=== PATIENT | male | born 1960 | race Caucasian/White ===

== ENCOUNTER → 2018-02-09 | Outpatient (CLI) | payer OTHER ==
[~2018-02-09] VITALS: Ht 177.8 cm; Wt 104.8 kg
[~2018-02-09] MED LIST: AMLODIPINE BESY10 MG PO; ASPIR 8181 M1 PO; AVAPRO300 MG PO; CRESTOR10 MG PO; MAXZIDE-25 MG1 EACH PO; PERCOCET 10-321 EACH PO; PERCOCET 7.5-31 EACH PO; PLAVIX 75 MG TA75 M1 PO; TOPROL XL100 MG PO; TOPROL XL25 MG PO; TRICOR145 MG PO; ZYRTEC10 MG PO
--- NOTE | ~2018-02-09 | HPC ---
[facility] [place] [address] PAIN MANAGEMENT CONSULTATION Name: ALEJANDRA CHAPMAN Room #: REG CL M..#: [id number] Admission: 02/09/18 Attend Phys: Lucas Chapman DO Discharge: Date of : 56 Report #: [id number] THIS REPORT FOR: //name// CC: FAM physician/PCP Lucas Valente DO DATE OF SERVICE: 02/09/2018 REFERRING PHYSICIAN: Rafat Valente DO. CHIEF COMPLAINT: Bilateral shoulder pain, right greater than left. HISTORY OF PRESENT ILLNESS: As you know, the patient is a 57-year-old male seen in followup visit for right shoulder pain. The patient has been seeing Dr. Marcus Erickson at our clinics at [facility]. The patient made appointments here at our clinic to undergo right shoulder injection. He is wishing to change his care to our clinic here at [facility] for more consistency of treatment. The patient indicates today pain level of around 4/10. States pain begins in the right shoulder, exacerbated with use of the right shoulder. Medications, lying down, reclining or repositioning tends to improve pain. He has changed his care to the [facility] office for continued opioid medications and periodic interventional treatments. ALLERGIES: PENICILLIN. CURRENT MEDICATIONS: Zyrtec 10 mg once a day, metoprolol 100 mg once a day, triamterene/hydrochlorothiazide 37.5/25 once a day, oxycodone 10/325 every 6 hours p.r.n. for pain, fenofibrate 145 mg per day, Crestor 10 mg per day, irbesartan 300 mg per day, aspirin 81 mg per day, amlodipine 10 mg per day. SOCIAL HISTORY: The patient continues to smoke. He denies IV or illicit drug use. Denies any chronic alcohol use. He is retired. He is unaccompanied today. IMAGING: No new imaging available. PQRS: The patient has osteoarthritis, no rheumatoid arthritis. He is not a fall risk, has not had a fall in the last 3 months. He is treated for hypertension, but he is not on blood thinners. He indicates pain score today 4/10. His opioid risk is low. His functional assessment tool pain impact score is 44/70. PHYSICAL EXAMINATION: VITAL SIGNS: Blood pressure 135/82, pulse 76, respiratory rate 16 and unlabored. The patient 99% on room air. Height 5 feet 10 inches tall, weight [facility] [address] [place] [address] PAIN MANAGEMENT CONSULTATION Name: ALEJANDRA CHAPMAN Room #: REG CLI [facility].#: [id number] Admission: 02/09/18 Attend Phys: Lucas Chapman DO Discharge: Date of : 56 Report #: [id number] 231 pounds, BMI calculated 33.1. GENERAL: Well-developed, well-nourished, well-hydrated, 57-year-old male. He appears stated age, placing current pain score 4/10. HEENT: Normocephalic, atraumatic. Pupils equal, round, reactive to light. Extraocular muscles are intact. EXTREMITIES: Show no clubbing, no cyanosis, no edema. MUSCULOSKELETAL: The patient has pain elicited with both active and passive range of motion of the right shoulder and left shoulder. There are well-healed surgical scars over both shoulders. Deep palpation of the right shoulder causes intensification of pain. There is no radicular component of the patient's symptoms. ASSESSMENT: 1. Right shoulder pain. 2. Rotator cuff injury of the right. 3. Chronic low back pain. 4. Opioid dependency. PLAN: 1. The patient has changed his care to our [facility] office from our [facility] office. The patient wished to continue therapy with myself. He felt comfortable with receiving medications and interventional treatments. He has subsequently contacted the pain clinic at [facility] and they have sent over all available information. The patient today indicates pain mainly in the right shoulder, though he continues to experience left shoulder pain he wants to address in the future. His spinal cord stimulator appears to be working well for his chronic low back pain. He has requested intraarticular right shoulder injection today. The patient was advised risks and benefits of a right intra-articular shoulder injection. These risks include, but are not necessarily limited to bleeding, bruising, infection, worsening pain, no relief of pain, also risk of temporary or permanent muscle weakness, temporary or permanent nerve damage, possible joint destruction and . The patient states understood and wished to proceed. 2. The patient will be making an appointment back in the clinic in 3 weeks to address left shoulder pain, also to discuss medication management. We have made that appointment with the patient today. 3. We will keep you apprised of response to treatment as we address his bilateral shoulder pain and chronic low back pain. We urged to thank Dr. Douglass for the referral to our clinic. PROCEDURE NOTE [facility] [address] [place] [address] PAIN MANAGEMENT CONSULTATION Name: ALEJANDRA CHAPMAN Room #: REG CLI [facility]#: [id number] Admission: 02/09/18 Attend Phys: Lucas Chapamn DO Discharge: Date of : 56 Report #: [id number] DESCRIPTION OF PROCEDURE: Right intra-articular shoulder injection under fluoroscopic guidance. After obtaining written consent, the patient was taken back to fluoroscopy suite, placed in a supine position. The image intensifier was then brought into position over the right shoulder and AP imaging was obtained. The area was then prepped and draped in aseptic fashion. A sterile marker was placed over the injection site. A 27-gauge 1-1/4 inch needle was used to anesthetize skin and subcutaneous tissue with 2 mL of 1% lidocaine. A 27-gauge 1-1/4-inch needle was then used to advance into the right shoulder under direct fluoroscopic imaging. Once entering the joint, the needle was advanced until reaching the proximal head of the humerus. Once reaching this osseous structure, the needle was retracted 1 mm and aspiration noted to be negative for heme. After this aspiration noted for negative heme, 0.3 mL of Omnipaque was injected. This demonstrated an excellent right shoulder arthrogram. After negative aspiration for heme, 3 mL of a solution containing 1 mL 40 mg per mL, 40 mg total triamcinolone, 2 mL bupivacaine 0.5% injected slowly. Needle retracted mcc, flushed with 1 mL of 1% lidocaine and removed. Sterile bandage placed over injection site. The patient tolerated the procedure well, carefully escorted to recovery room in stable condition. After meeting our discharge criteria, the patient discharged home. <ELECTRONICALLY SIGNED> By: Lucas Chapman DO 02/10/18 0804 [id number] Lucas Chapman DO /nt
[2018-02-09 12:35] VITALS: BP 135/82
== END | disposition home or self-care (01) ==
LOC: PAIN 06:39
DX: M25.511 Pain in right shoulder (principal); G89.29 Other chronic pain; F17.210 Nicotine dependence, cigarettes, uncomplicated; Z88.0 Allergy status to penicillin; Z79.899 Other long term (current) drug therapy; Z79.82 Long term (current) use of aspirin; Z79.891 Long term (current) use of opiate analgesic; Z98.890 Other specified postprocedural states

== ENCOUNTER → 2018-02-23 | Outpatient (CLI) | payer OTHER ==
[~2018-02-23] VITALS: Ht 177.8 cm; Wt 105.0 kg
--- NOTE | ~2018-02-23 | HPC ---
[facility] [place] [address] PAIN MANAGEMENT CONSULTATION Name: ALEJANDRA CHAPMAN Room #: REG CLI M.R.#: [id number] Admission: 02/23/18 Attend Phys: Lucas Chapman DO Discharge: Date of : 56 Report #: [id number] THIS REPORT FOR: //name// CC: [facility] physician/PCP Lucas Valente DO DATE OF SERVICE: 02/23/2018 CHIEF COMPLAINT: Bilateral shoulder pain, right greater than left. HISTORY OF PRESENT ILLNESS: As you know, the patient is a 58-year-old male who returns today in followup visit to address his left shoulder pain. The patient reports excellent benefit with the right intra-articular shoulder injection from last visit. He is reporting upwards of 80% improvement in overall pain involving the right shoulder. The left shoulder remains at level of pain of 7/10. He returns today to undergo left intra-articular shoulder injection, also to receive refills of his oxycodone 10/325, he takes 4 a day. He denies any injury, trauma to his shoulders or low back that may have led to continuation of pain issues. ALLERGIES: PENICILLIN. CURRENT MEDICATIONS: Zyrtec 10 mg per day, metoprolol 100 mg per day, triamterene/hydrochlorothiazide 37.5/25 once a day, Percocet 10/325 one tab every 6 hours p.r.n. for pain, fenofibrate 145 mg per day, Crestor 10 mg per day, irbesartan 300 mg once a day, aspirin 81 mg per day and amlodipine 10 mg per day. SOCIAL HISTORY: The patient continues to smoke. He denies IV or illicit drug use. Denies any chronic alcohol use. He is retired, retired years ago, unaccompanied today. IMAGING: No new imaging available. PQRS: The patient has known osteoarthritis of the bilateral shoulders, knees and back. No rheumatoid arthritis. He is not a fall risk, has not had a fall in the last 3 months. He is treated for hypertension, but is not on blood thinners. He places pain score today 7/10. He has a low risk for opioid abuse. Pain impact score is calculated to 45/70, moderate to severe interference of daily activities secondary to pain. PHYSICAL EXAMINATION: VITAL SIGNS: Blood pressure 104/64, pulse is 60, respiratory rate 20 and unlabored. The patient is 98% on room air. Height 5 feet 10 inches tall, weight 231.4 pounds, BMI calculated 33.2. [address] [address] PAIN MANAGEMENT CONSULTATION Name: ALEJANDRA CHAPMAN Room #: REG CLI [facility]#: [id number] Admission: 02/23/18 Attend Phys: Lucas Chapman DO Discharge: Date of : 56 Report #: [id number] GENERAL: Well-developed, well-nourished, well-hydrated exogenously obese 58-year-old male. He appears older than stated age, placing current pain score at 7/10. HEENT: Normocephalic, atraumatic. Pupils are equal, round, reactive to light. Extraocular muscles are intact. Sclerae nonicteric without injection. NEUROLOGIC: Cranial nerves 2-12 grossly intact. Speech fluent. The patient deemed a good historian. EXTREMITIES: Show no clubbing, no cyanosis, no edema. MUSCULOSKELETAL: The patient has pain elicited with active and passive range of motion of the left shoulder. Today, the pain is noted directly within the shoulder joint itself with radiation towards the proximal humerus. He has well-healed surgical scars over bilateral shoulders, his right shoulder is moving more freely. No pain with movement today. ASSESSMENT: 1. Bilateral shoulder osteoarthritis. 2. Bilateral rotator cuff injuries. 3. Chronic right shoulder pain. 4. Chronic left shoulder pain. 5. Opioid dependency. 6. Chronic intractable pain. PLAN: 1. The patient returns today in followup visit requesting to undergo a left intraarticular shoulder injection. He has noted excellent benefit with right shoulder injection provided 2 weeks ago. He states he is experiencing little or no pain in the right shoulder. He is placing his current pain score 7/10 involving his left shoulder. He has requested and we will perform a left intra-articular shoulder injection under fluoroscopic guidance today. He is also requesting refill of his medications in the form of Percocet 10/325 four a day, total of 120 per month. 2. The patient was consented to undergo a left shoulder injection. He was advised the risks and benefits of the procedure. These risks include but not necessarily limited to bleeding, bruising, infection, worsening pain, no relief of pain, also risk of temporary or permanent muscle weakness, temporary or permanent nerve damage, possible paralysis and . The patient states understood and wished to proceed. 3. The patient was provided prescription of Percocet 10/325 one tab p.o. q. 6 hours p.r.n. for pain. He was given #90 tablets, releases of today, 16 days from today and 32 days from today. The patient is provided the prescriptions in this fashion as this is his third green party payer restriction. He takes these medications for pain control and does note benefit with its use. 4. We will see the patient back in followup visit for refill of medications and possible intra-articular shoulder injections at our next visit. DESCRIPTION OF PROCEDURE: Left intra-articular shoulder injection under [facility] [address] [place] [address] PAIN MANAGEMENT CONSULTATION Name: ALEJANDRA CHAPMAN Room #: REG [facility]#: [id number] Admission: 02/23/18 Attend Phys: Lucas Chapman DO Discharge: Date of : 56 Report #: [id number] fluoroscopic guidance. After obtaining written consent, the patient was taken back to fluoroscopy suite, placed in supine position. Image intensifier was then brought into position over the left shoulder and AP imaging was obtained. The area was then prepped and draped in aseptic fashion. A sterile marker was then placed over the injection site. A 27-gauge 1-1/4 inch needle was then used to anesthetize skin and subcutaneous tissue with 2 mL of 1% lidocaine. A 25-gauge 2-inch needle was then advanced into the left shoulder under direct fluoroscopic imaging. The needle was advanced until reaching the proximal head of the humerus. The needle was then retracted approximately 1 mm and aspiration noted to be negative for heme. After negative aspiration for heme, 0.2 mL of Omnipaque was injected, which demonstrated an excellent left shoulder arthrogram. After negative aspiration for heme, 3 mL of a solution containing 1 mL 40 mg per mL, 40 mg total triamcinolone and 2 mL bupivacaine 0.5% injected slowly. Needle retracted assisted, flushed with 1 mL of 1% lidocaine and removed. Sterile bandage placed over injection site. The patient tolerated procedure well, carefully escorted to recovery room in stable condition. No apparent complications. After meeting discharge criteria, the patient discharged home. By: 0722 1023 Lucas Chapman DO /nt
[2018-02-23 10:10] VITALS: BP 104/64
== END | disposition home or self-care (01) ==
LOC: PAIN 07:30
DX: M19.011 Primary osteoarthritis, right shoulder (principal); M19.012 Primary osteoarthritis, left shoulder; G89.29 Other chronic pain; M25.511 Pain in right shoulder; M25.512 Pain in left shoulder; F11.20 Opioid dependence, uncomplicated; F17.210 Nicotine dependence, cigarettes, uncomplicated; Z88.0 Allergy status to penicillin; Z98.890 Other specified postprocedural states; Z79.899 Other long term (current) drug therapy; Z79.82 Long term (current) use of aspirin

== ENCOUNTER → 2018-06-22 | Outpatient (CLI) | payer OTHER ==
[~2018-06-22] VITALS: Ht 177.8 cm; Wt 110.2 kg
--- NOTE | ~2018-06-22 | HPC ---
[facility] [place] [address] PAIN MANAGEMENT CONSULTATION Name: ALEJANDRA CHAPMAN Room #: REG CLI ..#: [id number] Admission: 06/22/18 Attend Phys: Lucas Chapman DO Discharge: Date of : 56 Report #: [id number] THIS REPORT FOR: //name// CC: Lucas Valente DO DATE OF SERVICE: 06/22/2018 CHIEF COMPLAINT: Left shoulder pain. HISTORY OF PRESENT ILLNESS: As you know, the patient is a 58-year-old male who returns today in followup visit with recurrent left shoulder pain. The patient underwent bilateral shoulder injections on 02/23/2018 with near complete resolution of right shoulder pain. Unfortunately, his left shoulder pain has returned. He returns today in followup visit requesting to undergo left intra-articular shoulder injection in hopes of improving pain. He denies new injury or new trauma or any changes in medical history since our last visit. He is placing current pain score at 8/10. ALLERGIES: PENICILLIN. CURRENT MEDICATIONS: Zyrtec, metoprolol, triamterene/hydrochlorothiazide, Percocet, fenofibrate, Crestor, irbesartan, aspirin, amlodipine. SOCIAL HISTORY: The patient continues to smoke. Denies IV or illicit drug use. Denies any chronic alcohol use. He is retired, retired years ago, unaccompanied today. IMAGING: No new imaging available. PQRS: The patient has osteoarthritis, bilateral shoulders, bilateral knees and low back. No rheumatoid arthritis. He is not a fall risk, has not had a fall in the last 3 months. He is treated for hypertension, but he is not on any blood thinners. He has been on opioids for greater than 6 weeks. He has a low opioid addiction potential. His functional pain impact score 44/70, moderate to severe. PHYSICAL EXAMINATION: VITAL SIGNS: Blood pressure 114/74, pulse 58, respiratory rate 14 and unlabored. The patient is 97% on room air. Height 5 feet 10 inches tall, weight 243 pounds, BMI calculated 34.9. GENERAL: Well-developed, well-nourished, well-hydrated 58-year-old male appearing stated age, placing current pain score at 8/10. HEENT: Normocephalic, atraumatic. Pupils are equal, round, reactive to light, extraocular muscles are intact. Speech is fluent. [address] [address] PAIN MANAGEMENT CONSULTATION Name: ALEJANDRA CHAPMAN Room #: REG CLI [facility]#: [id number] Admission: 06/22/18 Attend Phys: Lucas Chapman DO Discharge: Date of : 56 Report #: [id number] EXTREMITIES: Show no clubbing, no cyanosis, no edema. MUSCULOSKELETAL: Pain is elicited with active and passive range of motion of left shoulder today. Right shoulder appears limited by anatomical stops, but no pain is elicited with movement. Upper extremity strength is symmetrical 5/5. ASSESSMENT: 1. Bilateral shoulder osteoarthritis. 2. Bilateral shoulder rotator cuff injuries. 3. Chronic left shoulder pain. 4. Opioid dependency. 5. Chronic intractable pain. PLAN: 1. The patient returns today in followup visit to undergo left intra-articular shoulder injection under fluoroscopic guidance. He has noted excellent benefit on the right side with near 100% resolution of his right shoulder symptoms from our last intra-articular shoulder injection. Unfortunately, his left shoulder has begun to return to a level of 8/10. He returns requesting a left shoulder injection. 2. The patient will make an appointment back with our clinic to receive refill on medications. At present, he has nearly a month worth of medication available to him. 3. The patient will return to our clinic on an as needed basis for possible next in a series of intra-articular shoulder injections and for refill of medications. PROCEDURE NOTE: DESCRIPTION OF PROCEDURE: Left intra-articular shoulder injection under fluoroscopic guidance. After obtaining written consent, the patient was taken back to fluoroscopy suite, placed in a supine position. The image intensifier (C-arm) was then brought into position over the left shoulder and AP imaging obtained. The area was then prepped and draped in aseptic fashion overlying the site of injection. A sterile marker was then placed over the injection site. A 27-gauge 1-1/4 inch needle was then used to anesthetize skin and subcutaneous tissue with 2 mL of 1% lidocaine. A 25-gauge 2-inch needle was then advanced into the left shoulder under direct fluoroscopic imaging. Needle was advanced until reaching the proximal head of the humerus. Needle was then retracted approximately 1 mm and aspiration noted to be negative for heme. After negative aspiration for heme, 0.2 mL of Omnipaque was injected demonstrating excellent left shoulder arthrogram. After negative aspiration for heme, 3 mL of a solution containing 1 mL 40 mg per mL, 40 mg total triamcinolone, 2 mL bupivacaine 0.5% injected slowly. Needle [facility] [address] [place] [address] PAIN MANAGEMENT CONSULTATION Name: ADELAALEJANDRA Room #: REG CLI [facility]#: [id number] Admission: 06/22/18 Attend Phys: Lucas Chapman DO Discharge: Date of : 56 Report #: [id number] retracted alf, flushed with 1 mL of 1% lidocaine and removed. Sterile bandage placed over injection site. No new motor deficits present in the upper extremity following procedure. The patient tolerated procedure well, carefully escorted to recovery room in stable condition. No apparent complications. After meeting discharge criteria, the patient discharged home. <ELECTRONICALLY SIGNED> By: Lucas Chapman DO 06/23/18 1059 [id number] 2330 Lucas Chapman DO /nt
[2018-06-22 12:29] VITALS: BP 114/74
== END | disposition home or self-care (01) ==
LOC: PAIN 06:54
DX: M19.012 Primary osteoarthritis, left shoulder (principal); M19.011 Primary osteoarthritis, right shoulder; M25.512 Pain in left shoulder; G89.29 Other chronic pain; I10 Essential (primary) hypertension; F17.210 Nicotine dependence, cigarettes, uncomplicated; F11.20 Opioid dependence, uncomplicated; Z88.0 Allergy status to penicillin; Z79.899 Other long term (current) drug therapy; Z98.890 Other specified postprocedural states

== ENCOUNTER → 2018-07-13 | Outpatient (CLI) | payer OTHER ==
[~2018-07-13] VITALS: Ht 177.8 cm; Wt 109.3 kg
--- NOTE | ~2018-07-13 | HPC ---
[facility] [place] [address] PAIN MANAGEMENT CONSULTATION Name: ALEJANDRA CHAPMAN [facility] [id number] Admission: 07/13/18 Attend Phys: Lucas Chapman DO Discharge: Date of : 56 Report #: [id number] THIS REPORT FOR: //name// CC: Lucas Valente DO DATE OF SERVICE: 07/13/2018 CHIEF COMPLAINT: Bilateral shoulder pain, chronic low back pain. HISTORY OF PRESENT ILLNESS: As you know, the patient is a 58-year-old male who returns today in followup visit for continuation of medication therapy. As you are aware, the patient receives intermittent bilateral shoulder injections to address bilateral shoulder rotator cuff injuries and osteoarthritis. He continues to utilize his spinal cord stimulator for chronic lumbar radicular symptoms that in conjunction with medications. Overall, the patient states his pain has improved with the various treatment options. He returns today requesting refill of medications. He denies side effects to the therapy at present. ALLERGIES: PENICILLIN. CURRENT MEDICATIONS: Zyrtec, metoprolol, triamterene/hydrochlorothiazide, Percocet, fenofibrate, Crestor, irbesartan, aspirin, and amlodipine. SOCIAL HISTORY: The patient continues to smoke. He denies IV or illicit drug use. Denies any chronic alcohol use. He is retired, retired years ago, unaccompanied today. IMAGING: No new imaging available. PQRS: The patient has known osteoarthritis of the bilateral shoulders, bilateral knees and low back. No rheumatoid arthritis. He is not a fall risk, has not had a fall in the last 3 months. He is treated for hypertension, but not on any blood thinners. He has been on opioids for greater than 6 weeks, has a reportedly low addiction potential. His functional assessment pain impact tool indicates pain level interference of 44/70, moderate severe. PHYSICAL EXAMINATION: VITAL SIGNS: Blood pressure 125/81, pulse 69, respiratory rate 18 and unlabored. The patient is 98% on room air. Height 5 feet 10 inches tall, weight 241 pounds, BMI calculated 34.6. GENERAL: Well-developed, well-nourished, well-hydrated exogenously obese 58-year-old male appearing stated age, placing current pain score at around 5/10. [address] [address] PAIN MANAGEMENT CONSULTATION Name: ALEJANDRA CHAPMAN Room #: REG [facility]#: [id number] Admission: 07/13/18 Attend Phys: Lucas Chapman DO Discharge: Date of : 56 Report #: [id number] HEENT: Normocephalic, atraumatic. Pupils equal, round, reactive to light. Speech is fluent. The patient deemed a good historian. EXTREMITIES: Show no clubbing, no cyanosis, no edema. MUSCULOSKELETAL: Active and passive range of motion of bilateral shoulders met with decreased rotational capability. Pain is elicited with abduction of the shoulders. No pain with adduction. There is some palpatory tenderness over the paraspinal musculature of lower lumbar spine, well-healed surgical scar. ASSESSMENT: 1. Bilateral shoulder osteoarthritis. 2. Bilateral rotator cuff injuries. 3. Chronic low back pain. 4. Chronic lumbar radiculopathy. 5. Degeneration of lumbar spine. 6. Opioid dependency. 7. Chronic intractable pain. PLAN: 1. The patient returns today in followup visit requesting refill on medications. He states the combination of medications, injections into the shoulders as well as spinal cord stimulator is providing benefit of about 80% despite the elevated pain level reported today 01/14. He returns today requesting refill on his Percocet for the next 3 months. He denies any side effects with the medication, feels it is working beneficially. 2. We reviewed the fact that opiate medications are being used to provide analgesia adequate to support activities of daily living, not attempting to achieve a specific pain score on the 0-10 Visual Analog Scale. The current opiate medications are providing sufficient analgesia to allow the patient to participate in activities of daily living. The patient is not exhibiting any aberrant behavior suggestive of drug diversion. The patient is not having any adverse reactions to medications. The patient is not suffering from daytime somnolence or mental acuity changes. The patient is managing opiate-induced constipation with appropriate kxbf-akx-hafdmsn agents and dietary considerations. The patient was counseled on concern for caution with operating a motor vehicle while using opiate medications. A physical exam was performed and the patient's functional status was evaluated. All patients with back pain were advised against the bed rest greater than 4 days and were advised to return to normal activities. Pain score assessment was noted and the treatment plan was reviewed with the patient. All current medications, both prescribed and OTC were reviewed and reconciled on the electronic medical record. Tobacco screening was accomplished and smoking cessation was advised when indicated. BMI was noted and diet/exercise modification was recommended for all patients following outside normal parameters. [facility] [address] [place] [address] PAIN MANAGEMENT CONSULTATION Name: ALEJANDRA CHAPMAN Room #: REG CLI [facility]#: [id number] Admission: 07/13/18 Attend Phys: Lucas Chapman DO Discharge: Date of : 56 Report #: [id number] I reviewed with the patient today their responsibilities to safeguard prescription medications, reviewed their responsibility to utilize medications only as prescribed by the physician. They are to seek and receive pain medications only from 1 physician group ( [facility]). They are to use 1 pharmacy and keep the clinic informed if they change pharmacies. Their responsibilities include making followup visits in a timely fashion and to avoid abrupt discontinuation of medication usage. Their responsibilities further include bringing their medications (bottles from the pharmacy with residual pills) to the visit for possible confirmation of pill counts and the patient understands it is their responsibility to submit to random drug screens to ensure both that the medications prescribed are present, and that no other controlled substances are present. All prescriptions provided today were generated electronically. 3. The patient was provided prescription of oxycodone 10/325 one tab p.o. q.5h. p.r.n. for pain, I have given the patient #75, releases of today, 2 weeks, 4 weeks, 6 weeks, 8 weeks and 10 weeks. Each prescription is to be released every 2 weeks as his third alliance party payer requires this type of dosing for coverage. 4. We will see the patient back in followup visit for possible interventional treatments on an as needed basis. Otherwise, we will see him back in 3 months for continued medication management. By: [id number] Lucas Chapman DO /nt
[2018-07-13 10:11] VITALS: BP 125/81
== END ==
LOC: PAIN 07:00
DX: S46.002A Unspecified injury of muscle(s) and tendon(s) of the rotator cuff of left shoulder, initial encounter (principal); S46.001A Unspecified injury of muscle(s) and tendon(s) of the rotator cuff of right shoulder, initial encounter; M51.16 Intervertebral disc disorders with radiculopathy, lumbar region; M19.011 Primary osteoarthritis, right shoulder; M19.012 Primary osteoarthritis, left shoulder; G89.4 Chronic pain syndrome; F11.20 Opioid dependence, uncomplicated; X58.XXXA Exposure to other specified factors, initial encounter; Y93.89 Activity, other specified; Y92.89 Other specified places as the place of occurrence of the external cause; Y99.8 Other external cause status

== ENCOUNTER → 2018-08-10 | Outpatient (CLI) | payer OTHER ==
[~2018-08-10] VITALS: Ht 177.8 cm; Wt 110.7 kg
--- NOTE | ~2018-08-10 | HPC ---
[facility] [place] [address] PAIN MANAGEMENT CONSULTATION Name: ALEJANDRA CHAPMAN [facility] [id number] Admission: 08/10/18 Attend Phys: Lucas Chapman DO Discharge: Date of : 56 Report #: [id number] THIS REPORT FOR: //name// CC: Lucas Valente DO DATE OF SERVICE: 08/10/2018 CHIEF COMPLAINT: Bilateral shoulder pain and chronic low back pain. HISTORY OF PRESENT ILLNESS: As you know, the patient is a 58-year-old male returning in followup visit to undergo bilateral intra-articular shoulder injections under fluoroscopic guidance. The patient reports good efficacy with previous intra-articular shoulder injections, rating pain now only at 5/10. He returns today to undergo bilateral intra-articular shoulder injections to address his bilateral shoulder pain. He has done very well with previous injections reporting up to 70% improvement in overall symptoms. He returns today to undergo the procedures. ALLERGIES: PENICILLIN. CURRENT MEDICATIONS: Zyrtec, metoprolol, triamterene/hydrochlorothiazide, Percocet, fenofibrate, Crestor, irbesartan, aspirin and amlodipine. SOCIAL HISTORY: The patient continues to smoke. Denies IV or illicit drug use. Denies any chronic alcohol use. He is retired, retired years ago. He is unaccompanied today. IMAGING: No new imaging available. PQRS: The patient has known osteoarthritic changes of the bilateral shoulders, bilateral knees and low back. No rheumatoid arthritis. He is not a fall risk, has not had a fall in the last 3 months. He is treated for hypertension, but is not on any blood thinners. He is on opioids and has been so for greater than 6 months. He has a low addiction potential. His functional assessment pain impact tool indicates pain levels of 44/70, moderate to severe. PHYSICAL EXAMINATION: VITAL SIGNS: Blood pressure 116/68, pulse 89, respiratory rate 18 and unlabored. The patient is 97% on room air. Height 5 feet 10 inches tall, weight 244 pounds and BMI calculated 35. GENERAL: Well-developed, well-nourished, well-hydrated exogenously obese 58-year-old male appearing stated age, placing current pain score 5/10. HEENT: Normocephalic and atraumatic. Pupils are equal, round and reactive to light. Speech is fluent. [facility] [address] [place] [address] PAIN MANAGEMENT CONSULTATION Name: ALEJANDRA CHAPMAN Room #: REG CLI [facility]#: [id number] Admission: 08/10/18 Attend Phys: Lucas Chapman DO Discharge: Date of : 56 Report #: [id number] EXTREMITIES: Show no clubbing, no cyanosis and no edema. MUSCULOSKELETAL: Active and passive range of motion of bilateral shoulders met with increasing pain. There is decreased rotational capability. Pain is elicited with abduction of the shoulders. No pain with adduction. Palpatory tenderness noted over the anterior and posterior shoulder joint itself. ASSESSMENT: 1. Bilateral shoulder pain. 2. Bilateral shoulder osteoarthritis. 3. Chronic low back pain. 4. Chronic lumbar radiculopathy. 5. Degeneration of lumbar spine. 6. Opioid dependency. 7. Chronic intractable pain. PLAN: 1. The patient returns today in followup visit to undergo bilateral intra-articular shoulder injections to address his ongoing bilateral shoulder pain. He is denying any injury or trauma that may have led to recurrence of pain. He returns requesting bilateral shoulder injections to be performed today in hopes of improving pain. He has been advised of the risks and benefits of procedure, states understood and wished to proceed. 2. No medication changes made at today's visit. The patient received a refill of medications last month and has medications available and does not need refills. 3. We will see the patient back in followup visit in 2 months for medication management, earlier if he wishes to undergo intra-articular shoulder injections. PROCEDURE NOTE DESCRIPTION OF PROCEDURE: Bilateral intra-articular shoulder injections under fluoroscopic guidance. After obtaining written consent, the patient was taken back to fluoroscopy suite, placed in a supine position. The image intensifier was then brought into position over the left shoulder and AP imaging obtained. The area was then prepped and draped in aseptic fashion using chlorhexidine. A sterile marker was then placed over the injection site. A 27-gauge 1-1/4 inch needle was then used to anesthetize skin and subcutaneous tissue with 1 mL of 1% lidocaine. A 25-gauge 2-inch needle was then advanced in the left shoulder under direct fluoroscopic imaging. Needle was advanced until reaching the proximal head of the humerus. Needle was then retracted 1 mm and aspiration noted to be negative for heme. After negative aspiration for heme, 0.3 mL of Omnipaque injected demonstrating excellent left shoulder arthrogram. After negative aspiration for heme, 3 mL of a solution containing 1 mL 40 mg per mL, 40 mg total triamcinolone [address] [address] PAIN MANAGEMENT CONSULTATION Name: ALEJANDRA CHAPMAN Room #: REG CLI [facility]#: [id number] Admission: 08/10/18 Attend Phys: Lucas AnthonyJim Chapman DO Discharge: Date of : 56 Report #: [id number] and 2 mL bupivacaine 0.5% injected slowly. Needle retracted penitentiary, flushed with 1 mL of 1% lidocaine and removed. Sterile bandage placed over injection site. No new motor deficits present in the left upper extremity after procedure. Our attention was then directed to the right side. Image intensifier was then placed over the right shoulder and AP imaging obtained. The area was then prepped and draped in aseptic fashion using chlorhexidine. A sterile marker was then placed over the injection site. A 27-gauge 1-1/4 inch needle was then used to anesthetize skin and subcutaneous tissue with 2 mL of 1% lidocaine. A 25-gauge 2-inch needle then advanced under fluoroscopic guidance into the right shoulder joint under direct visualization. Needle was then advanced until reaching the proximal head of the humerus. Needle was then retracted approximately 1 mm and aspiration noted to be negative for heme. After negative aspiration for heme, 0.2 mL of Omnipaque injected demonstrating excellent right shoulder arthrogram. After negative aspiration for heme, 3 mL of a solution containing 1 mL 40 mg per mL, 40 mg total triamcinolone, 2 mL bupivacaine 0.5% injected slowly. Needle retracted penitentiary, flushed with 1 mL of 1% lidocaine and removed. Sterile bandage placed over injection site. No new motor deficits present in the right upper extremity following procedure. The patient tolerated the procedure well, carefully escorted to the recovery room in stable condition. No apparent complications. After meeting our discharge criteria, the patient discharged home. By: [id number] Lucas Chapman DO /rica
[2018-08-10 08:50] VITALS: BP 116/68
== END ==
LOC: PAIN 08:35
DX: M19.012 Primary osteoarthritis, left shoulder (principal); M19.011 Primary osteoarthritis, right shoulder; G89.29 Other chronic pain; M51.16 Intervertebral disc disorders with radiculopathy, lumbar region; M17.0 Bilateral primary osteoarthritis of knee; I10 Essential (primary) hypertension; E66.9 Obesity, unspecified; F17.210 Nicotine dependence, cigarettes, uncomplicated; Z79.891 Long term (current) use of opiate analgesic; Z88.0 Allergy status to penicillin; Z79.82 Long term (current) use of aspirin; Z79.899 Other long term (current) drug therapy; Z68.35 Body mass index [BMI] 35.0-35.9, adult

== ENCOUNTER → 2018-10-06 | Outpatient (CLI) | payer OTHER ==
[~2018-10-06] VITALS: Ht 152.4 cm; Wt 108.8 kg
[2018-10-06 10:41] VITALS: BP 113/67
--- NOTE | 2018-10-06 10:54 | NUR ---
Pain Clinic Assessment: 1. History of Osteoarthritis: Left Lower Extremity Left Upper Extremity Right Lower Extremity Right Upper Extremity History of Rheumatoid Arthritis: Not Applicable 2. Height: 5 ft. 10 in. 152.4 cm. Weight: 239.8 lb. oz. 108.773 kg. Patient's BMI: 46.8 3. Vital Signs: BP: 113/67 Pulse: 51 Resp: 16 Temp: 02 Sat: 98 ECG Mon: 4. Pain Intensity: 4 5. Fall Risk: Dizziness: N Needs help standing or walking: N Fallen in the last 3 months: N Fall risk comments: 6. Patient on Blood Thinner: None 7. History of Hypertension: Y 8. Opioid Therapy greater than 6 weeks: Y Opiate Contract Signed: 04/14/18 9. Risk Assessment Tool Provided: LOW 0 10. Functional Assessment Tool: 11. Recreational Drug Use: Never Drug Type: Tobacco Use: Current Every Day Smoker Tobacco Type: Cigarettes Amount or Packs/day: 4-5 CIGS/DAY How Many Years: 45 Alcohol Use: No Frequency: Quant:
--- NOTE | 2018-10-07 10:01 | HPC ---
[facility] [address] [place] [address] PAIN MANAGEMENT CONSULTATION Name: ALEJANDRA CHAPMAN Room #: REG [facility]#: [id number] Admission: 10/06/18 Attend Phys: Maria Elena Alexis Discharge: Date of : 56 Report #: [id number] THIS REPORT FOR: //name// CC: Maria Elena Douglass Valente DATE OF SERVICE: 10/06/2018 CHIEF COMPLAINT: Bilateral shoulder pain and chronic low back pain. HISTORY OF PRESENT ILLNESS: This is a 58-year-old gentleman who returns to the pain clinic today for a followup for his medication refills for his chronic shoulder pain and chronic low back pain. He tells me the injection that he had on his bilateral shoulders in August gave him 85% relief for about 10 weeks. He feels that he needs to have them injected again and will make an appointment for in the next few weeks. He tells me that his medications are very helpful as well as his spinal cord stimulator, which he wears 24 hours a day, 7 days a week. He tells me some days he requires only four pain pills a day and sometimes he requires 6 depending on his activity and using his arms. His pain averages is 4/10 with a chronic achy, tenderness pain that he experiences. He denies any constipation and states he would just like a refill of his medications today. ALLERGIES: PENICILLIN. MEDICATIONS: Percocet 10/325 up to 5 tablets a day, Zyrtec 10 mg daily, Toprol-XL 100 mg daily, Maxzide 25 mg daily, TriCor 145 mg daily, Crestor 10 mg daily, Avapro 300 mg daily, aspirin 81 mg daily and amlodipine 10 mg daily. PQRS: 1. The patient has known osteoarthritis changes in his bilateral shoulders, knees and lower back. He denies rheumatoid arthritis. 2. Height is 5 feet 10 inches, weight is 239 and BMI is 46. 3. VITAL SIGNS: Blood pressure 113/67, pulse is 51, respirations 16 and oxygen sat is 98. 4. Pain score is 4/10. 5. Fall risk. He denies dizziness, does not need help walking or standing. Has not fallen in the last 3 months. 6. The patient is not on any blood thinners. He does have a history of taking antihypertensive medicines. 7. Opioid therapy is greater than 6 weeks; therefore, an opioid signed contract is on the chart. 8. Risk assessment tool is low. Functional assessment is 44/70. 9. Recreational drug use. He does currently smoke cigarettes about 4-5 a day and he [place] [address] PAIN MANAGEMENT CONSULTATION Name: ALEJANDRA CHAPMAN Room #: REG [facility] Gabe#: [id number] Admission: 10/06/18 Attend Phys: Maria Elena Alexis Discharge: Date of : 56 Report #: [id number] PHYSICAL EXAMINATION: GENERAL: This is a well-developed, well-nourished, well hydrated, exogenously obese 58-year-old male who appears his stated age, placing his current pain score today at 4/10. HEENT: Normocephalic and atraumatic. Extraocular eye muscles are intact. Pupils are equal, round and reactive to light. Speech is fluent. Hearing is within normal limits. EXTREMITIES: No clubbing, no cyanosis and no edema. MUSCULOSKELETAL: Active and passive range of motion in bilateral shoulders met with pain. The patient also has some lower back pain and tenderness in his lower back. The patient also has some palpatory tenderness noted over the anterior and posterior shoulder joint bilaterally. ASSESSMENT: 1. Bilateral shoulder pain. 2. Bilateral shoulder osteoarthritis. 3. Chronic low back pain. 4. Chronic lumbar radiculopathy. 5. Degeneration of lumbar spine. 6. Opioid dependency. 7. Chronic intractable pain. 8. Placement of lumbar spinal cord stimulator. We reviewed the fact that opiate medications are being used to provide analgesia adequate to support activities of daily living, not attempting to achieve a specific pain score on the 0-10 Visual Analog Scale. The current opiate medications are providing sufficient analgesia to allow the patient to participate in activities of daily living. The patient is not exhibiting any aberrant behavior suggestive of drug diversion. The patient is not having any adverse reactions to medications. The patient is not suffering from daytime somnolence or mental acuity changes. The patient is managing opiate-induced constipation with appropriate lkdr-zle-ijzavxt agents and dietary considerations. The patient was counseled on concern for caution with operating a motor vehicle while using opiate medications. A physical exam was performed and the patient's functional status was evaluated. All patients with back pain were advised against the bed rest greater than 4 days and were advised to return to normal activities. Pain score assessment was noted and the treatment plan was reviewed with the patient. All current medications, both prescribed and OTC were reviewed and reconciled on the electronic medical record. Tobacco screening was accomplished and smoking cessation was advised when indicated. BMI was noted and diet/exercise modification was recommended for all patients following outside normal parameters. I reviewed with the patient today their responsibilities to [address] [address] PAIN MANAGEMENT CONSULTATION Name: ALEJANDRA CHAPMAN Room #: REG [facility]#: [id number] Admission: 10/06/18 Attend Phys: Maria Elena Alexis Discharge: Date of : 56 Report #: [id number] prescription medications, reviewed their responsibility to utilize medications only as prescribed by the physician. They are to seek and receive pain medications only from 1 physician group ( [facility]). They are to use 1 pharmacy and keep the clinic informed if they change pharmacies. Their responsibilities include making followup visits in a timely fashion and to avoid abrupt discontinuation of medication usage. Their responsibilities further include bringing their medications (bottles from the pharmacy with residual pills) to the visit for possible confirmation of pill counts and the patient understands it is their responsibility to submit to random drug screens to ensure both that the medications prescribed are present, and that no other controlled substances are present. All prescriptions provided today were generated electronically. PLAN: 1. We discussed treatment options with the patient today. We will refill his medications today and he will schedule an appointment for 1-2 weeks to have his bilateral shoulders injections. He was informed that our clinic no longer does medication management and injections on the same visit. He verbalizes understanding of this. The patient does fall in the CDC guidelines according to morphine mEq at 75 morphine mEq, this falls under the 90 that the CDC is currently requiring but above the 50, which is where they would like everybody to eventually reduce to. The patient will be given 3 months of medications, given scripts every 2 weeks per his insurance requirements, so oxycodone 10/325, #75, released today, 2, 4, 6, 8 and 10 weeks. The patient verbalizes understanding of this. Appointment made. 2. The patient seen in collaboration today with Dr. Marcus Erickson. <ELECTRONICALLY SIGNED> By: Maria Elena Alexis 10/07/18 [id number] [id number] Maria Elena Alexis /nt
== END ==
LOC: PAIN 06:58
DX: M19.012 Primary osteoarthritis, left shoulder (principal); M19.011 Primary osteoarthritis, right shoulder; M54.16 Radiculopathy, lumbar region; F11.20 Opioid dependence, uncomplicated; G89.4 Chronic pain syndrome; G95.9 Disease of spinal cord, unspecified

== ENCOUNTER → 2018-10-13 | Outpatient (CLI) | payer OTHER ==
[~2018-10-13] VITALS: Ht 177.8 cm; Wt 111.4 kg
[2018-10-13 09:50] VITALS: BP 113/80
--- NOTE | 2018-10-13 10:09 | NUR ---
Pain Clinic Assessment: 1. History of Osteoarthritis: Left Lower Extremity Left Upper Extremity Right Lower Extremity Right Upper Extremity History of Rheumatoid Arthritis: Not Applicable 2. Height: 5 ft. 10 in. 177.8 cm. Weight: 245.6 lb. oz. 111.404 kg. Patient's BMI: 35.2 3. Vital Signs: BP: 113/80 Pulse: 53 Resp: 20 Temp: 02 Sat: 98 ECG Mon: 4. Pain Intensity: 4 5. Fall Risk: Dizziness: N Needs help standing or walking: N Fallen in the last 3 months: N Fall risk comments: 6. Patient on Blood Thinner: None 7. History of Hypertension: Y 8. Opioid Therapy greater than 6 weeks: Y Opiate Contract Signed: 04/14/18 9. Risk Assessment Tool Provided: LOW 0 10. Functional Assessment Tool: 11. Recreational Drug Use: Never Drug Type: Tobacco Use: Current Every Day Smoker Tobacco Type: Cigarettes Amount or Packs/day: 0.5 How Many Years: 45 Alcohol Use: No Frequency: Quant:
--- NOTE | 2018-10-20 07:55 | HPC ---
[facility] [place] [address] PAIN MANAGEMENT CONSULTATION Name: ALEJANDRA CHAPMAN [id number] Admission: 10/13/18 Attend Phys: Lucas Chapman DO Discharge: Date of : 56 Report #: [id number] THIS REPORT FOR: //name// CC: Lucas Valente DO DATE OF SERVICE: 10/13/2018 REFERRING PHYSICIAN: Rafat Valente D.O. CHIEF COMPLAINT: Bilateral shoulder pain. HISTORY OF PRESENT ILLNESS: As you know, the patient is a 58-year-old male who returns today in followup visit to undergo a bilateral intra-articular shoulder injections under fluoroscopic guidance. The patient is placing his pain score 4/10. He states the previous injection series provided good and prolonged benefit but unfortunately, his symptoms have begun to return. This is noted with more increased activity. He is indicating no new injury, no trauma or any changes in medical history since our last visit. He returns today to undergo bilateral intra-articular shoulder injections under fluoroscopy. ALLERGIES: PENICILLIN. CURRENT MEDICATIONS: Percocet, Zyrtec, Toprol-XL, Maxzide, TriCor, Crestor, Avapro, aspirin and amlodipine. SOCIAL HISTORY: The patient continues to smoke. Denies IV or illicit drug use. Denies any chronic alcohol use. He is retired. He retired years ago. He is unaccompanied today. IMAGING DATA: No new imaging available. PQRS: The patient has known osteoarthritic changes of the bilateral shoulders and low back. He denies rheumatoid arthritis. He is placing pain score 4/10. He is not a fall risk, has not had a fall in the last 3 months. He is not on blood thinners. He is treated for hypertension. He is on chronic opioids and under contract with [facility] to receive those medications. He is a low addiction potential for opioid use. His pain impact score 44/70 indicating [id number]-[id number] interference of daily activities secondary to pain. PHYSICAL EXAMINATION: VITAL SIGNS: Blood pressure 113/67, pulse is 51, respiratory rate 16 and unlabored. The patient is 98% on room air. Height 5 feet 10 inches tall, weight 239.8 pounds and BMI calculated 46.8. GENERAL: Well-developed, well-nourished and well-hydrated 58-year-old male [facility] [address] [place] [address] PAIN MANAGEMENT CONSULTATION Name: ALEJANDRA CHAPMAN Room #: REG CLI Missy#: [id number] Admission: 10/13/18 Attend Phys: Lucas Chapman DO Discharge: Date of : 56 Report #: [id number] appearing stated age, placing current pain score 4/10. HEENT: Normocephalic and atraumatic. Pupils equal, round and reactive to light. EXTREMITIES: Show no clubbing, no cyanosis and no edema. MUSCULOSKELETAL: Palpatory tenderness is noted over the anterior and posterior shoulder. Well-healed surgical scars bilaterally. Active and passive range of motion of bilateral shoulders met with increasing pain and decreased mobility. Apprehension test is positive bilaterally. ASSESSMENT: 1. Bilateral shoulder pain. 2. Bilateral osteoarthritis of the shoulders. 3. Chronic low back pain. 4. Lumbar radiculopathy. 5. Degenerative lumbar spine. 6. Opioid dependency. 7. Chronic intractable pain. PLAN: 1. The patient returns today in followup visit to undergo bilateral shoulder injections under fluoroscopic guidance. It was reported good efficacy with previous injections. He is hopeful to see similar improvement today. He has been advised the risks and benefits of this procedure. These risks include but are not necessarily limited to bleeding, bruising, infection, worsening pain, no relief of pain, also risk of temporary or permanent muscle weakness, temporary or permanent nerve damage, possible joint destruction and and the patient states understood and wished to proceed. 2. No medication changes made at today's visit. The patient will continue current medical therapy as previously prescribed. 3. We will see the patient back in followup visit on an as needed basis for possible bilateral intra-articular shoulder injections; otherwise, we will see him back in approximately 2-1/2 months for medication management. PROCEDURE NOTE DESCRIPTION OF PROCEDURE: Bilateral intra-articular shoulder injections under fluoroscopic guidance. After obtaining written consent, the patient was taken to the fluoroscopy suite, placed in a supine position. The image intensifier was then brought into position over the right shoulder and AP imaging obtained. The area was then prepped and draped in aseptic fashion using chlorhexidine. A sterile marker was then placed over the injection site. A 27-gauge 1-1/4 inch needle was then used to anesthetize skin and subcutaneous tissue with 1 mL of 1% lidocaine. A 25-gauge 2-inch needle was then advanced into the right shoulder under direct [address] [address] PAIN MANAGEMENT CONSULTATION Name: ALEJANDRA CHAPMAN Room #: REG APARNA Bernal#: [id number] Admission: 10/13/18 Attend Phys: Lucas Chapman, DO Discharge: Date of : 56 Report #: [id number] fluoroscopic imaging. Needle was advanced until reaching the proximal head of the humerus. Needle was then retracted approximately 1 mm and aspiration noted to be negative for heme. After negative aspiration for heme, 0.4 mL of Omnipaque injected demonstrating excellent right shoulder arthrogram. After negative aspiration for heme, 3 mL of a solution containing 1 mL 40 mg per mL, 40 mg total triamcinolone, 2 mL bupivacaine 0.5% was injected slowly into the right shoulder. Needle was retracted approximately half way, flushed with 1 mL of bupivacaine 0.5% and then removed. Sterile bandage placed over injection site. There were no new motor deficits present in the right upper extremity following the procedure. Our attention was then directed to the left side. Image intensifier was then brought into position over the left shoulder and AP imaging obtained. The area overlying the injection site was then prepped and draped in aseptic fashion using chlorhexidine. A sterile marker was then placed over the injection site to confirm the position of the injection. A 27-gauge 1-1/4 inch needle was then used to anesthetize skin and subcutaneous tissue with 2 mL of lidocaine 1%. A 25-gauge 2-inch needle was advanced under fluoroscopic guidance into the left shoulder under direct visualization. Needle was advanced until reaching the proximal head of the humerus. Needle was then retracted approximately 1 mm and aspiration noted to be negative for heme. After negative aspiration for heme, 0.3 mL of Omnipaque injected demonstrating an excellent left shoulder arthrogram. After negative aspiration for heme, 3 mL of a solution containing 1 mL 40 mg per mL, 40 mg total triamcinolone, 2 mL of bupivacaine 0.5% injected slowly. Needle was retracted approximately half way, flushed with 1 mL bupivacaine 0.5% then removed. Sterile bandage was placed over injection site. There were no new motor deficits present in the upper extremity following procedure. The patient tolerated procedure well, carefully escorted to recovery room in stable condition. No apparent complications. After meeting discharge criteria, the patient discharged home. <ELECTRONICALLY SIGNED> By: Lucas Chapman DO 10/20/18 [id number] Lucas Chapman DO /nt
== END | disposition home or self-care (01) ==
LOC: PAIN 07:07
DX: M19.012 Primary osteoarthritis, left shoulder (principal); M19.011 Primary osteoarthritis, right shoulder; G89.29 Other chronic pain; M51.16 Intervertebral disc disorders with radiculopathy, lumbar region; F17.210 Nicotine dependence, cigarettes, uncomplicated; Z88.0 Allergy status to penicillin; Z79.899 Other long term (current) drug therapy; Z79.82 Long term (current) use of aspirin

== ENCOUNTER → 2018-12-28 | Outpatient (CLI) | payer OTHER ==
[~2018-12-28] VITALS: Ht 177.8 cm; Wt 110.2 kg
[~2018-12-28] MED LIST changes: +NABUMETONE 500500 M1 PO
--- NOTE | ~2018-12-28 | HPC ---
[facility] [place] [address] PAIN MANAGEMENT CONSULTATION Name: ALEJANDRA CHAPMAN [facility] #[facility] [id number] Admission: 12/28/18 ������������������ Attend Phys: Lucas Chapman DO Discharge: ������������������ Date of : 56 Report #: [id number] THIS REPORT FOR: //name// CC: Lucas Valente DO DATE OF SERVICE: 12/28/2018 CHIEF COMPLAINT: Bilateral shoulder pain, low back pain, bilateral lower extremity pain with paresthesias. HISTORY OF PRESENT ILLNESS: As you know, the patient is a 58-year-old male who returns today in followup visit requesting refill on medications. He feels medications are working beneficially for pain control despite the elevated pain report of 6/10 today. He states his pain is exacerbated with activity using his arms, weather changes, also positioning from the low back and lower extremity pain standpoint. He believes his symptoms are improved with medication management, spinal cord stimulator technology and intermittent bilateral intra-articular shoulder injections. He returns today in followup visit for medication management, placing current pain score 6/10. He denies new injury to his shoulders or low back that may have led to symptom continuation. He returns today in followup visit requesting refill of medications at this appointment. ALLERGIES: PENICILLIN. CURRENT MEDICATIONS: Percocet, Zyrtec, Toprol-XL, Maxzide, TriCor, Crestor, Avapro, aspirin, and amlodipine. SOCIAL HISTORY: The patient continues to smoke. Denies IV or illicit drug use. Denies any chronic alcohol use. He is retired, retired years ago, unaccompanied today. IMAGING: No new imaging available. PQRS: The patient has osteoarthritic changes of the bilateral shoulders, lumbar spine and mildly in the bilateral hips. No rheumatoid arthritis. He is placing pain intensity today at 6/10. He is not a fall risk, has not had a fall in the last 3 months. He is not on blood thinners. He is treated for hypertension. He is on chronic opioid medication and he has a low assessment for opioid addiction. He is placing pain impact score 44/70 indicating moderate to severe interference of daily activities secondary to pain. PHYSICAL EXAMINATION: VITAL SIGNS: Blood pressure 116/56, pulse 50, respiratory rate 16 and unlabored. The patient is 97% on room air. Height 5 feet 10 inches tall, [facility] [address] [place] [address] PAIN MANAGEMENT CONSULTATION Name: ADELAALEJANDRA [facility] [id number] Admission: 12/28/18 ������������������ Attend Phys: Lucas Chapman DO Discharge: ������������������ Date of : 56 Report #: [id number] weight 243 pounds, BMI calculated 34.9. GENERAL: Well-developed, well-nourished, well-hydrated exogenously obese 58-year-old male appearing stated age, placing current pain score at 6/10. HEENT: Normocephalic, atraumatic. Pupils equal, round, reactive to light. Extraocular muscles are intact. Sclerae nonicteric without injection. Speech fluent. EXTREMITIES: Show no clubbing, no cyanosis, and no edema. MUSCULOSKELETAL: Upper extremity strength appears symmetrical 5/5. Giveaway strength noted with pain generation of bilateral shoulders. The pain is elicited with both active and passive range of motion bilateral shoulders. There is decreased mobility in both passive and active range. Apprehension test positive bilaterally. There is palpatory tenderness over the paraspinal musculature of lower lumbar spine. No spinous process tenderness. ASSESSMENT: 1. Bilateral shoulder pain. 2. Bilateral shoulder osteoarthritis. 3. Chronic lumbar radiculopathy. 4. Degeneration of lumbar spine. 5. Opioid dependency. 6. Chronic intractable pain. PLAN: 1. The patient returns today in followup visit requesting refill on medications. He feels medications are working beneficially for pain control. This in conjunction with a spinal cord stimulator, intermittent bilateral intra-articular shoulder injections provide good and prolonged benefit. He returns today requesting refill of medications and wishing to plan an injection series in the bilateral shoulders. We reviewed the fact that opiate medications are being used to provide analgesia adequate to support activities of daily living, not attempting to achieve a specific pain score on the 0-10 Visual Analog Scale. The current opiate medications are providing sufficient analgesia to allow the patient to participate in activities of daily living. The patient is not exhibiting any aberrant behavior suggestive of drug diversion. The patient is not having any adverse reactions to medications. The patient is not suffering from daytime somnolence or mental acuity changes. The patient is managing opiate-induced constipation with appropriate vjoy-ekj-pyoobdo agents and dietary considerations. The patient was counseled on concern for caution with operating a motor vehicle while using opiate medications. A physical exam was performed and the patient's functional status was evaluated. All patients with back pain were advised against the bed rest greater than 4 days and were advised to return to normal activities. Pain score assessment was noted and the treatment plan was reviewed with the patient. All current [facility] [address] [place] [address] PAIN MANAGEMENT CONSULTATION Name: ALEJANDRA CHAPMAN Room #: REG APARNA Castano.#: [id number] Admission: 12/28/18 ������������������ Attend Phys: Lucas ChapmanDO Discharge: ������������������ Date of : 56 Report #: [id number] medications, both prescribed and OTC were reviewed and reconciled on the electronic medical record. Tobacco screening was accomplished and smoking cessation was advised when indicated. BMI was noted and diet/exercise modification was recommended for all patients following outside normal parameters. I reviewed with the patient today their responsibilities to safeguard prescription medications, reviewed their responsibility to utilize medications only as prescribed by the physician. They are to seek and receive pain medications only from 1 physician group ( [facility]). They are to use 1 pharmacy and keep the clinic informed if they change pharmacies. Their responsibilities include making followup visits in a timely fashion and to avoid abrupt discontinuation of medication usage. Their responsibilities further include bringing their medications (bottles from the pharmacy with residual pills) to the visit for possible confirmation of pill counts and the patient understands it is their responsibility to submit to random drug screens to ensure both that the medications prescribed are present, and that no other controlled substances are present. All prescriptions provided today were generated electronically. 2. The patient was provided prescription, oxycodone/acetaminophen 10/325 one tab p.o. q. 6 hours p.r.n. for pain. I have given the patient #75 tablets, with release today, 2 weeks from today, 4 weeks from today, 6 weeks from today, 8 weeks from today, and 10 weeks from today. The patient has to receive his medications on an every other week basis based on his insurer. Prescriptions were provided to the patient in written form today. 3. The patient was provided prescription of nabumetone 500 mg dose 1 tab p.o. t.i.d., #90, 2 refills, 3 months' worth of medication. 4. We will see the patient back in followup visit next week for bilateral intra-articular shoulder injections to address bilateral shoulder osteoarthritis. He does receive good benefit with these injections and has no plans at this time to move forward with surgical options and wishing to continue these more conservative treatments. We have made the appointment for the patient next week to undergo these injections. ��������������������������������������������� ���������������������������������������� By: ��������������������������������������������� 0920 0130 Lucas Chapman DO /nt
[2018-12-28 09:34] VITALS: BP 116/56
--- NOTE | 2018-12-28 09:53 | NUR ---
Pain Clinic Assessment: 1. History of Osteoarthritis: Left Lower Extremity Left Upper Extremity Right Lower Extremity Right Upper Extremity History of Rheumatoid Arthritis: Not Applicable 2. Height: 5 ft. 10 in. 177.8 cm. Weight: 243.0 lb. oz. 110.224 kg. Patient's BMI: 34.9 3. Vital Signs: BP: 116/56 Pulse: 50 Resp: 16 Temp: 02 Sat: 97 ECG Mon: 4. Pain Intensity: 6 5. Fall Risk: Dizziness: N Needs help standing or walking: N Fallen in the last 3 months: N Fall risk comments: 6. Patient on Blood Thinner: None 7. History of Hypertension: Y 8. Opioid Therapy greater than 6 weeks: Y Opiate Contract Signed: 04/14/18 9. Risk Assessment Tool Provided: LOW 0 10. Functional Assessment Tool: 11. Recreational Drug Use: Never Drug Type: Tobacco Use: Current Every Day Smoker Tobacco Type: Amount or Packs/day: How Many Years: Alcohol Use: No Frequency: Quant:
== END ==
LOC: PAIN 06:53
DX: G89.29 Other chronic pain (principal); M25.511 Pain in right shoulder; M25.512 Pain in left shoulder; M54.5 Low back pain; M79.605 Pain in left leg

== ENCOUNTER → 2019-03-22 | Outpatient (CLI) | payer OTHER ==
[~2019-03-22] VITALS: Ht 177.8 cm; Wt 114.0 kg
[2019-03-22 10:23] VITALS: BP 100/68
--- NOTE | 2019-03-22 10:39 | NUR ---
Pain Clinic Assessment: 1. History of Osteoarthritis: Left Lower Extremity Left Upper Extremity Right Lower Extremity Right Upper Extremity History of Rheumatoid Arthritis: Not Applicable 2. Height: 5 ft. 10 in. 177.8 cm. Weight: 251.4 lb. oz. 114.035 kg. Patient's BMI: 36.1 3. Vital Signs: BP: 100/68 Pulse: 54 Resp: 20 Temp: 02 Sat: 100 ECG Mon: 4. Pain Intensity: 8 5. Fall Risk: Dizziness: N Needs help standing or walking: N Fallen in the last 3 months: N Fall risk comments: 6. Patient on Blood Thinner: None 7. History of Hypertension: Y 8. Opioid Therapy greater than 6 weeks: Y Opiate Contract Signed: 04/14/18 9. Risk Assessment Tool Provided: LOW 0 10. Functional Assessment Tool: 11. Recreational Drug Use: Never Drug Type: Tobacco Use: Current Every Day Smoker Tobacco Type: Amount or Packs/day: How Many Years: Alcohol Use: No Frequency: Quant:
--- NOTE | 2019-03-22 15:42 | HPC ---
[facility] [address] [place] [address] PAIN MANAGEMENT CONSULTATION Name: ALEJANDRA CHAPMAN [id number] Admission: 03/22/19 Attend Phys: Maria Elena Alexis Discharge: Date of : 56 Report #: [id number] THIS REPORT FOR: //name// CC: Maria Elena Alexis Rafat [place] DATE OF SERVICE: 03/22/2019 CHIEF COMPLAINT: Bilateral shoulder pain and low back pain. HISTORY OF PRESENT ILLNESS: This is a pleasant 59-year-old gentleman who returns to the pain clinic today for followup for his medications that he uses to help treat his ongoing low back pain and his shoulder pain. He tells me that the injection Dr. Lucas Chapman gave him in December helped at least 80% for several months. It is slowly wearing off. He feels like he is in need of another injection and we will make an appointment before he leaves here for that. He tells me he does also have low back pain and does use a spinal cord stimulator 24 hours a day as well as his pain pills. His pain score is 8/10 today. It is an aching, tender, stabbing pain, worse with activity. He does care for his who has had several strokes, so he unfortunately has to be very active caring for her. He denies any problems with constipation or daytime sleepiness from his medications. CURRENT ALLERGIES: PENICILLIN. CURRENT LIST OF MEDICATIONS: Oxycodone 10/325 every 5 hours, Zyrtec, Toprol, Maxzide and TriCor, Crestor, Avapro, aspirin, and amlodipine. PQRS: 1. He has osteoarthritis in his upper and lower extremities. Denies any rheumatoid arthritis. 2. Height is 5 feet 10 inches, weight is 251, BMI is 36. 3. Vital Signs: Blood pressure 100/68, pulse is 54, respirations 20, oxygen sat is 100%. 4. Pain score is 8/10. 5. Fall risk, denies dizziness. He does not need help walking or standing. He has not fallen in the last 3 months. 6. The patient is not on any blood thinners. He does take medicine for hypertension. 7. Opioid therapy is greater than 6 weeks; therefore, an opioid signed contract is on the chart. Risk assessment tool is low. Functional assessment is 44/70. 8. Recreational drug use, he denies. He is a current smoker about 5-6 cigarettes a day and does not drink alcohol. We did check the prescription monitoring system. The patient is filling appropriately from Dr. Lucas Chapman in a timely fashion [place] [address] PAIN MANAGEMENT CONSULTATION Name: ALEJANDRA CHAPMAN Room #: REG Med [facility]al#: [id number] Admission: 03/22/19 Attend Phys: Maria Elena Alexis Discharge: Date of : 56 Report #: [id number] random drug screen on this patient today. PHYSICAL EXAMINATION: GENERAL: This is a well-developed, well-nourished 59-year-old gentleman who appears his stated age. He is alert and orientated. Placing his pain score at 8/10 today. HEENT: Normocephalic, atraumatic. Pupils equal, round and reactive to light. EXTREMITIES: No clubbing, no cyanosis, no edema. MUSCULOSKELETAL: He has active and passive range of motion in his shoulders causes increase in pain. There is restriction of motion in both shoulders bilaterally. The patient walks with a slightly antalgic gait and complains of tenderness across the lumbar spine. ASSESSMENT: 1. Bilateral shoulder pain. 2. Bilateral shoulder osteoarthritis. 3. Lumbar back pain. 4. Complex medical management under terms of written opioid agreement. We reviewed the fact that opiate medications are being used to provide analgesia adequate to support activities of daily living, not attempting to achieve a specific pain score on the 0-10 Visual Analog Scale. The current opiate medications are providing sufficient analgesia to allow the patient to participate in activities of daily living. The patient is not exhibiting any aberrant behavior suggestive of drug diversion. The patient is not having any adverse reactions to medications. The patient is not suffering from daytime somnolence or mental acuity changes. The patient is managing opiate-induced constipation with appropriate [id number]-[id number] agents and dietary considerations. The patient was counseled on concern for caution with operating a motor vehicle while using opiate medications. A physical exam was performed and the patient's functional status was evaluated. All patients with back pain were advised against the bed rest greater than 4 days and were advised to return to normal activities. Pain score assessment was noted and the treatment plan was reviewed with the patient. All current medications, both prescribed and OTC were reviewed and reconciled on the electronic medical record. Tobacco screening was accomplished and smoking cessation was advised when indicated. BMI was noted and diet/exercise modification was recommended for all patients following outside normal parameters. I reviewed with the patient today their responsibilities to safeguard prescription medications, reviewed their responsibility to utilize medications only as prescribed by the physician. They are to seek and receive pain medications only from 1 physician group ([facility]). They are to use 1 pharmacy and keep the clinic informed if they change pharmacies. Their [address] [address] PAIN MANAGEMENT CONSULTATION Name: ALEJANDRA CHAPMAN Room #: REG CLI [facility]#: [id number] Admission: 03/22/19 Attend Phys: Maria Elena Alexis Discharge: Date of : 56 Report #: [id number] responsibilities include making followup visits in a timely fashion and to avoid abrupt discontinuation of medication usage. Their responsibilities further include bringing their medications (bottles from the pharmacy with residual pills) to the visit for possible confirmation of pill counts and the patient understands it is their responsibility to submit to random drug screens to ensure both that the medications prescribed are present, and that no other controlled substances are present. All prescriptions provided today were generated electronically. PLAN: 1. We discussed treatment options with the patient today. He feels that he needs to have his shoulders injected again. It has been greater than 2 months. He did have 80% relief from the injections from Dr. Chapman, appointment made for 04/05/2019. 2. Scripts given today for Percocet 10/325, #75 to release at 2 weeks, 4 weeks, 6 weeks, 8 weeks and 10 weeks per his insurance company, they allow a 2-week supply of medications. According to the CDC guidelines, his morphine milliequivalent is 80. The patient denies any constipation or daytime sleepiness with these medications. 3. We did talk about smoking cessation. He does smoke 5-6 cigarettes a day, which he tells me as a decrease in the past. He will continue to try and decrease. He tells me that it is a habit to smoke after he eats. I encouraged him to find a different habit to try and change his ways and decrease smoking that will hopefully decrease some of his pain that way. 4. The patient was seen in collaboration today with Dr. Lucas Chapman. The patient will be seen for injections in 2 weeks. <ELECTRONICALLY SIGNED> By: Maria Elena Alexis 03/22/19 [id number] Maria Elena Alexis /nt
== END | disposition home or self-care (01) ==
LOC: PAIN 09:53
DX: M54.5 Low back pain (principal); M19.011 Primary osteoarthritis, right shoulder; M19.012 Primary osteoarthritis, left shoulder; G89.29 Other chronic pain; F17.210 Nicotine dependence, cigarettes, uncomplicated; Z88.0 Allergy status to penicillin; Z79.82 Long term (current) use of aspirin; Z79.891 Long term (current) use of opiate analgesic; Z79.899 Other long term (current) drug therapy

== ENCOUNTER → 2019-04-05 | Outpatient (CLI) | payer OTHER ==
[~2019-04-05] VITALS: Ht 177.8 cm; Wt 115.8 kg
--- NOTE | ~2019-04-05 | HPC ---
[facility] [place] [address] PAIN MANAGEMENT CONSULTATION Name: ALEJANDRA CHAPMAN [id number] Admission: 04/05/19 ������������������ Attend Phys: Lucas Chapman DO Discharge: ������������������ Date of : 56 Report #: [id number] THIS REPORT FOR: //name// CC: Lucas Valente DO DATE OF SERVICE: 04/05/2019 REFERRING PHYSICIAN: Dr. Rafat Valente CHIEF COMPLAINT: Bilateral shoulder pain and chronic low back pain. HISTORY OF PRESENT ILLNESS: As you know, the patient is a 59-year-old male who returns today in followup visit to undergo bilateral intra-articular shoulder injections under fluoroscopic guidance. Previous intra-articular shoulder injections improved his bilateral shoulder pain by approximately 80%, lasting until just recently where he has had a slow and progressive return of symptoms. He denies injury or trauma that may have led to symptom reoccurrence. As you are aware, the patient has had extensive surgical interventions in the bilateral shoulders and this has left him with chronic pain. He does well with intra-articular shoulder injections, returning today to undergo the procedure again. He is placing his pain today at approximately 7/10. ALLERGIES: PENICILLIN. CURRENT MEDICATIONS: Percocet, Zyrtec, Toprol-XL, Maxzide, TriCor, Crestor, Avapro, aspirin and amlodipine. SOCIAL HISTORY: The patient continues to smoke. He denies IV or illicit drug use. Denies any chronic alcohol use. He is retired, retired years ago, unaccompanied today. IMAGING: No new imaging available. PQRS: The patient has osteoarthritic changes of the bilateral shoulders, lumbar spine. Denies rheumatoid arthritis. He is placing pain intensity today, 7/10, not a fall risk, has not had a fall in the last 3 months. He is not on blood thinners. He is treated for hypertension. He is on chronic opioids and has a low opioid addiction potential. He is placing pain impact score 44/70, moderate to severe interference of daily activities secondary to pain. PHYSICAL EXAMINATION: VITAL SIGNS: Blood pressure 109/70, pulse 53, respiratory rate 20 and unlabored. The patient is 100% on room air. Height 5 feet 10 inches tall, weight 255.2 pounds, BMI calculated 36.6. [address] [address] PAIN MANAGEMENT CONSULTATION Name: ADELAALEJANDRA Room #: REG CLI [facility]#: [id number] Admission: 04/05/19 ������������������ Attend Phys: Lucas Chapman DO Discharge: ������������������ Date of : 56 Report #: [id number] GENERAL: Well-developed, well-nourished, well-hydrated, exogenously obese 59-year-old male appearing stated age, pain is rated today at 7/10. HEENT: Normocephalic and atraumatic. Pupils are equal, round and reactive to light. EXTREMITIES: Show no clubbing, no cyanosis and no edema. MUSCULOSKELETAL: The patient has palpatory tenderness over the bilateral shoulders, left greater than right today. There is crepitus noted with right shoulder movement, negative on the left. Well-healed surgical scars over both shoulders. Active and passive range of motion of shoulders met with increasing pain and moderate restriction of motion. ASSESSMENT: 1. Bilateral shoulder pain. 2. Bilateral shoulder osteoarthritis. 3. Chronic intractable pain. PLAN: 1. The patient returns today in followup visit to undergo bilateral intra-articular shoulder injections under fluoroscopic guidance. He reports excellent benefit with the previous intra-articular shoulder injection, but unfortunately his symptoms have begun to return. He returns today to undergo the bilateral injections in hopes of improving pain further. The patient has been advised of the risks and the benefits of this procedure. These risks include but are not necessarily limited to bleeding, bruising, infection, worsening of pain, no relief of pain, temporary or permanent muscle weakness, temporary or permanent nerve damage, possible joint destruction and . The patient states understood and wished to proceed. 2. No medication changes made at today's visit. The patient did receive refills of his medications on 03/22/2019 and has them available for the next 2 months. 3. We will see the patient back in followup visit for medication management or to discuss possible repeat intra-articular shoulder injections. PROCEDURE NOTE DESCRIPTION OF PROCEDURE: Bilateral intra-articular shoulder injections under fluoroscopic guidance. After obtaining written consent, the patient was taken back to fluoroscopy suite, placed in a supine position. Image intensifier was then brought into position over the right shoulder and AP imaging obtained. The area was then prepped and draped in aseptic fashion using chlorhexidine. A sterile marker was placed over the injection site. A 27-gauge 1-1/4 inch needle was then used to anesthetize skin and subcutaneous tissue with 2 mL of 1% lidocaine. A 25-gauge 2-inch needle was then advanced into the right shoulder under direct [facility] [address] [place] [address] PAIN MANAGEMENT CONSULTATION Name: ALEJANDRA CHAPMAN [id number] Admission: 04/05/19 ������������������ Attend Phys: Lucas CruzJim AdelaDO Discharge: ������������������ Date of : 56 Report #: [id number] visualization with fluoroscope. Needle was advanced until reaching the proximal head of the humerus. Needle was then retracted approximately 1 mm and aspiration noted to be negative for heme. After negative aspiration for heme, 0.4 mL of Omnipaque injected demonstrating excellent right shoulder arthrogram. After negative aspiration for heme, 3 mL of a solution containing 1 mL 40 mg per mL, 40 mg total triamcinolone, 2 mL bupivacaine 0.5% injected slowly. Needle then retracted assisted, flushed with 1 mL of 1% lidocaine and then removed. Sterile bandage placed over injection site. There were no new motor deficits present in the right upper extremity following procedure. Our attention was then directed to the left side. Image intensifier was then placed into position over the left shoulder and AP imaging obtained. The area was then prepped and draped in aseptic fashion using chlorhexidine. A sterile marker was then placed over the injection site to confirm position of the injection. A 27-gauge 1-1/4 inch needle was then used to anesthetize skin and subcutaneous tissue with 2 mL of 1% lidocaine. A 25-gauge 2-inch needle advanced under fluoroscopic guidance into the left shoulder under direct fluoroscopic visualization. Needle was advanced until reaching the proximal head of the humerus. Needle was then retracted approximately 1 mm and aspiration noted to be negative for heme. After negative aspiration for heme, 0.4 mL of Omnipaque injected demonstrating excellent left shoulder arthrogram. After negative aspiration for heme, 3 mL of a solution containing 1 mL 40 mg per mL, 40 mg total triamcinolone and 2 mL of bupivacaine 0.5% injected slowly. Needle then retracted approximately half way, flushed with 1 mL of 1% lidocaine and then removed. Sterile bandage placed over injection site. There were no new motor deficits present in the upper extremity on the left following procedure. The patient tolerated the procedure well, carefully escorted to the recovery room in stable condition. No apparent complications. After meeting our discharge criteria, the patient discharged home. ��������������������������������������������� ���������������������������������������� By: ��������������������������������������������� [id number] Lucas Chapman DO /nt
[2019-04-05 10:41] VITALS: BP 109/70
--- NOTE | 2019-04-05 11:08 | NUR ---
Pain Clinic Assessment: 1. History of Osteoarthritis: Left Lower Extremity Left Upper Extremity Right Lower Extremity Right Upper Extremity History of Rheumatoid Arthritis: Not Applicable 2. Height: 5 ft. 10 in. 177.8 cm. Weight: 255.2 lb. oz. 115.758 kg. Patient's BMI: 36.6 3. Vital Signs: BP: 109/70 Pulse: 53 Resp: 20 Temp: 02 Sat: 100 ECG Mon: 4. Pain Intensity: 7 5. Fall Risk: Dizziness: N Needs help standing or walking: N Fallen in the last 3 months: N Fall risk comments: 6. Patient on Blood Thinner: None 7. History of Hypertension: Y 8. Opioid Therapy greater than 6 weeks: Y Opiate Contract Signed: 04/14/18 9. Risk Assessment Tool Provided: LOW 0 10. Functional Assessment Tool: 11. Recreational Drug Use: Never Drug Type: Tobacco Use: Current Every Day Smoker Tobacco Type: Amount or Packs/day: 1/2 How Many Years: 45 Alcohol Use: No Frequency: Quant:
== END | disposition home or self-care (01) ==
LOC: PAIN 06:54
DX: M19.011 Primary osteoarthritis, right shoulder (principal); M19.012 Primary osteoarthritis, left shoulder; G89.29 Other chronic pain; I10 Essential (primary) hypertension; F17.210 Nicotine dependence, cigarettes, uncomplicated; Z79.891 Long term (current) use of opiate analgesic; Z79.899 Other long term (current) drug therapy; Z79.82 Long term (current) use of aspirin; Z88.0 Allergy status to penicillin

== ENCOUNTER → 2019-06-14 | Outpatient (CLI) | payer OTHER ==
[~2019-06-14] VITALS: Ht 177.8 cm; Wt 115.6 kg
[2019-06-14 10:11] VITALS: BP 109/68
--- NOTE | 2019-06-14 10:31 | NUR ---
Pain Clinic Assessment: 1. History of Osteoarthritis: Left Lower Extremity Left Upper Extremity Right Lower Extremity Right Upper Extremity History of Rheumatoid Arthritis: Not Applicable 2. Height: 5 ft. 10 in. 177.8 cm. Weight: 254.8 lb. oz. 115.577 kg. Patient's BMI: 36.6 3. Vital Signs: BP: 109/68 Pulse: 51 Resp: 16 Temp: 02 Sat: 100 ECG Mon: 4. Pain Intensity: 8 WITH MEDS 5. Fall Risk: Dizziness: N Needs help standing or walking: N Fallen in the last 3 months: N Fall risk comments: 6. Patient on Blood Thinner: None 7. History of Hypertension: Y 8. Opioid Therapy greater than 6 weeks: Y Opiate Contract Signed: 04/14/18 9. Risk Assessment Tool Provided: LOW 0 10. Functional Assessment Tool: 11. Recreational Drug Use: Never Drug Type: Tobacco Use: Current Every Day Smoker Tobacco Type: Cigarettes Amount or Packs/day: 1/2 How Many Years: 45 Alcohol Use: No Frequency: Quant:
--- NOTE | 2019-06-21 08:01 | HPC ---
[facility] [address] [place] [address] PAIN MANAGEMENT CONSULTATION Name: ALEJANDRA CHAPMAN [id number] Admission: 06/14/19 Attend Phys: Lucas Chapman DO Discharge: Date of : 56 Report #: [id number] THIS REPORT FOR: //name// CC: Lucas Valente DO DATE OF SERVICE: 06/14/2019 REFERRING PHYSICIAN: Rafat Valente DO. CHIEF COMPLAINT: Bilateral shoulder pain, chronic low back pain. HISTORY OF PRESENT ILLNESS: As you know, the patient is a 59-year-old male who returns today in followup visit for continuation of medication management. He feels medications are working beneficially for pain control, reporting up to 40% and to 50% improvement in overall pain with medications and in conjunction with intra-articular shoulder injections provide up to 80% improvement in overall pain. He returns today in followup visit for medication management, wishing to plan next in the series of bilateral shoulder injections in the very near future. He denies new injury, new trauma or any changes in medical history since our last visit. Despite improvement in pain with medications, he is reporting pain score today at 8/10. ALLERGIES: PENICILLIN. CURRENT MEDICATIONS: Percocet 10/325 one tab p.o. q. 6 hours p.r.n. for pain, Zyrtec 10 mg once a day, metoprolol 100 mg once a day, triamterene/hydrochlorothiazide 37.5/25 once a day, fenofibrate 145 mg once a day, amlodipine 10 mg once a day, aspirin 81 mg per day, irbesartan 300 mg once a day, Crestor 10 mg once a day. SOCIAL HISTORY: The patient continues to smoke. Denies IV or illicit drug use. Denies any chronic alcohol use. He is unaccompanied today. IMAGING: No new imaging available. PQRS: The patient has known osteoarthritic changes of bilateral shoulders, lumbar spine and cervical spine. No rheumatoid arthritis. Pain intensity today is reported at 8/10. He is not a fall risk, has not had a fall in last 3 months. He is not on blood thinners, but is treated for hypertension. He is on chronic opioids and has a low opioid addiction potential based on our assessment tool. Pain impact score 44/70 indicating moderate to severe interference of daily activities secondary to pain. PHYSICAL EXAMINATION: [facility] [address] [place] [address] PAIN MANAGEMENT CONSULTATION Name: ALEJANDRA CHAPMAN [facility] [id number] Admission: 06/14/19 Attend Phys: Lucas Chapman DO Discharge: Date of : 56 Report #: [id number] VITAL SIGNS: Blood pressure 109/68, pulse 51, respiratory rate 16 and unlabored. The patient is 100% on room air. Height 5 feet 10 inches tall, weight 254.8 pounds, BMI calculated 36.6. GENERAL: Well-developed, well-nourished, well-hydrated exogenously obese 59-year-old male appearing stated age, placing current pain score at 8/10. HEENT: Normocephalic, atraumatic. Pupils equal, round, reactive to light. EXTREMITIES: Show no clubbing, no cyanosis, no edema. MUSCULOSKELETAL: Active and passive range of motion of bilateral shoulders is met with increase in pain, right greater than left. He is intact to light touch from C5 to T1 dermatomes. Muscle bulk and tone is equal and symmetrical in upper extremities. Muscle heel lining paster in the hands, bilateral and equal. There is some palpatory tenderness noted over the paraspinal musculature of lower lumbar spine. No spinous process tenderness. Seated straight leg raising negative. Supine straight leg raising negative. Rolo's test negative. Modified Gaenslen's positive for axial low back pain. ASSESSMENT: 1. Bilateral shoulder pain. 2. Bilateral shoulder osteoarthritis. 3. Chronic low back pain. 4. Chronic lumbar radiculopathy. 5. Lumbosacral spondylosis with radiculopathy. PLAN: 1. The patient returns today in followup visit for refill of medications. He states he receives up to 50% improvement in overall pain with medications despite the elevated pain level of 8/10 today. He states the pain is a combination of his bilateral shoulders and low back symptoms. He is planning to undergo bilateral intra-articular shoulder injections in the near future, but has returned today for medication management. He denies side effects to medication including somnolence, decreased mental acuity, disorientation, confusion. 2. We reviewed the fact that opiate medications are being used to provide analgesia adequate to support activities of daily living, not attempting to achieve a specific pain score on the 0-10 Visual Analog Scale. The current opiate medications are providing sufficient analgesia to allow the patient to participate in activities of daily living. The patient is not exhibiting any aberrant behavior suggestive of drug diversion. The patient is not having any adverse reactions to medications. The patient is not suffering from daytime somnolence or mental acuity changes. The patient is managing opiate-induced constipation with appropriate zmzj-tjo-tvulolj agents and dietary considerations. The patient was counseled on concern for caution with operating a motor vehicle while using opiate medications. A physical exam was performed and the patient's functional status was evaluated. All patients with back pain were advised against the bed rest greater than [address] [place] [address] PAIN MANAGEMENT CONSULTATION Name: ADELAALEJANDRA Justin [facility] [id number] Admission: 06/14/19 Attend Phys: Lucas Chapman DO Discharge: Date of : 56 Report #: [id number] days and were advised to return to normal activities. Pain score assessment was noted and the treatment plan was reviewed with the patient. All current medications, both prescribed and OTC were reviewed and reconciled on the electronic medical record. Tobacco screening was accomplished and smoking cessation was advised when indicated. BMI was noted and diet/exercise modification was recommended for all patients following outside normal parameters. I reviewed with the patient today their responsibilities to safeguard prescription medications, reviewed their responsibility to utilize medications only as prescribed by the physician. They are to seek and receive pain medications only from 1 physician group ( [facility]). They are to use 1 pharmacy and keep the clinic informed if they change pharmacies. Their responsibilities include making followup visits in a timely fashion and to avoid abrupt discontinuation of medication usage. Their responsibilities further include bringing their medications (bottles from the pharmacy with residual pills) to the visit for possible confirmation of pill counts and the patient understands it is their responsibility to submit to random drug screens to ensure both that the medications prescribed are present, and that no other controlled substances are present. All prescriptions provided today were generated electronically. 3. The patient was provided prescription of Percocet 10/325, 1 tab p.o. q. 5 hours p.r.n. for pain. I have given the patient #75 tablets, releasing now, 2 weeks, 4 weeks, 6 weeks, 8 weeks and, 10 weeks for ongoing analgesic benefit. All prescriptions were provided to the patient in written form. He is to monitor his prescription medications as replacement cannot be offered. He cannot lose all or misplace these prescriptions as again they cannot be reissued. 4. We will see the patient back in followup visit on an as needed basis for bilateral intra-articular shoulder injections. The patient is planning to possibly schedule that next week or the week following. We will see him back at that time. <ELECTRONICALLY SIGNED> By: Lucas Chapman DO 06/21/19 0801 0815 [id number] Lucas Chapman DO /nt
== END ==
LOC: PAIN 06:46
DX: M47.27 Other spondylosis with radiculopathy, lumbosacral region (principal); M19.011 Primary osteoarthritis, right shoulder; M19.012 Primary osteoarthritis, left shoulder; Z88.0 Allergy status to penicillin; Z79.899 Other long term (current) drug therapy

== ENCOUNTER → 2019-06-21 | Outpatient (CLI) | payer OTHER ==
[~2019-06-21] VITALS: Ht 177.8 cm; Wt 115.2 kg
[2019-06-21 13:50] VITALS: BP 104/65
--- NOTE | 2019-06-21 13:52 | NUR ---
Pain Clinic Assessment: 1. History of Osteoarthritis: Left Lower Extremity Left Upper Extremity Right Lower Extremity Right Upper Extremity History of Rheumatoid Arthritis: Not Applicable 2. Height: 5 ft. 10 in. 177.8 cm. Weight: 254.0 lb. oz. 115.214 kg. Patient's BMI: 36.4 3. Vital Signs: BP: 104/65 Pulse: 48 Resp: 13 Temp: 02 Sat: 98 ECG Mon: 4. Pain Intensity: 8 5. Fall Risk: Dizziness: N Needs help standing or walking: N Fallen in the last 3 months: N Fall risk comments: 6. Patient on Blood Thinner: None 7. History of Hypertension: Y 8. Opioid Therapy greater than 6 weeks: Y Opiate Contract Signed: 04/14/18 9. Risk Assessment Tool Provided: LOW 0 10. Functional Assessment Tool: 11. Recreational Drug Use: Never Drug Type: Tobacco Use: Current Every Day Smoker Tobacco Type: Cigarettes Amount or Packs/day: How Many Years: Alcohol Use: No Frequency: Quant:
--- NOTE | 2019-06-28 08:01 | HPC ---
[facility] [address] [place] [address] PAIN MANAGEMENT CONSULTATION Name: ALEJANDRA CHAPMAN [facility] [id number] Admission: 06/21/19 Attend Phys: Lucas Chapman DO Discharge: Date of : 56 Report #: [id number] THIS REPORT FOR: //name// CC: Lucas Valente DO DATE OF SERVICE: 06/21/2019 REFERRING PHYSICIAN: Rafat Valente DO CHIEF COMPLAINT: Bilateral shoulder pain. HISTORY OF PRESENT ILLNESS: As you know, the patient is a very pleasant 59-year-old male who returns today in followup visit to undergo bilateral intra-articular shoulder injections under fluoroscopic guidance. The patient reports 80% improvement in overall pain with these injections in the past. Unfortunately, his symptoms have begun to return. As you are aware, the patient suffers from chronic bilateral shoulder pain due to osteoarthritic changes and rotator cuff injuries that continually plague the patient. He returns today to undergo the next in the series of injections in hopes of improving pain. He denies new injury, trauma or any changes in medical history since our visit of 06/14/2019. ALLERGIES: PENICILLIN. CURRENT MEDICATIONS: Percocet, Zyrtec, metoprolol, triamterene/hydrochlorothiazide, fenofibrate, amlodipine, aspirin, irbesartan, Crestor. SOCIAL HISTORY: The patient continues to smoke. Denies IV or illicit drug use. Denies any chronic alcohol use. He is unaccompanied today. He is not working, not receiving workmen's compensation. IMAGING: No new imaging available. PQRS: The patient has known arthritic changes of the bilateral shoulders, lumbar spine and cervical spine. No rheumatoid arthritis. He is placing pain intensity today at 8/10, is not a fall risk, has not had a fall in last 3 months. He is not treated with blood thinners. He is treated for hypertension. He is on chronic opioids and has a low opioid addiction potential based on our assessment tool. Pain impact score 44/70, moderate interference of daily activities secondary to pain. PHYSICAL EXAMINATION: VITAL SIGNS: Blood pressure 104/65, pulse 48, respiratory rate 13 and [facility] [address] [place] [address] PAIN MANAGEMENT CONSULTATION Name: ALEJANDRA CHAPMAN Room #: REG [facility]#: [id number] Admission: 06/21/19 Attend Phys: Lucas Chapman DO Discharge: Date of : 56 Report #: [id number] unlabored. The patient is 98% on room air. Height 5 feet 10 inches tall, weight 254 pounds and BMI calculated 36.4. GENERAL: Well-developed, well-nourished, well-hydrated exogenously obese 59-year-old male appearing stated age, pain is rated today at 8/10. HEENT: Normocephalic, atraumatic. Pupils equal, round, reactive to light. EXTREMITIES: Show no clubbing, no cyanosis, and no edema. MUSCULOSKELETAL: Active and passive range of motion of bilateral shoulders met with increased pain. Pain is elicited also with provocative testing for rotator cuff injuries. There is also noted an impingement with abduction of the shoulder bilaterally, left greater than right. ASSESSMENT: 1. Bilateral shoulder pain. 2. Bilateral shoulder osteoarthritis. 3. Chronic intractable pain. PLAN: 1. The patient returns today in followup visit to undergo bilateral intra-articular shoulder injections under fluoroscopic guidance. He indicates good efficacy with the injections in the past and is hopeful to see similar improvement today. He is noted up to 80% improvement in overall pain when the injections have been provided. He returns requesting this to be performed today. He has been advised risks and benefits of the procedure, states he understood and wished to proceed. 2. We will see the patient back in followup visit for medication management at our pre-established appointment time. PROCEDURE NOTE: PROCEDURE: Bilateral intra-articular shoulder injections under fluoroscopic guidance. DESCRIPTION OF PROCEDURE: After obtaining written consent, the patient was taken back to fluoroscopy suite, placed in supine position. The image intensifier was then brought into position over the left shoulder and AP imaging obtained. The area was prepped and draped in aseptic fashion using chlorhexidine. A sterile marker was placed over the injection site. A 27-gauge 1-1/4 inch needle was then used to anesthetize skin and subcutaneous tissue with 2 mL of 1% preservative-free lidocaine. A 25-gauge 2-inch needle was then advanced into the left shoulder under direct visualization with the fluoroscopic imaging. Needle was advanced until reaching the proximal head of the humerus. Needle was then retracted approximately 1 mm and aspiration noted to be negative for heme. After negative aspiration for heme, 0.2 mL of Omnipaque injected demonstrating excellent left shoulder arthrogram. After negative aspiration for heme, 3 mL of a solution containing 1 [facility] [address] [place] [address] PAIN MANAGEMENT CONSULTATION Name: ALEJANDRA CHAPMAN Room #: REG [facility]#: [id number] Admission: 06/21/19 Attend Phys: Lucas Chapman DO Discharge: Date of : 56 Report #: [id number] mL 40 mg per mL, 40 mg total triamcinolone along with 2 mL bupivacaine 0.5% injected slowly. Needle then retracted shelter, flushed with 1 mL of 1% lidocaine preservative-free then removed. Sterile bandage was then placed over injection site. There were no new motor deficits in the left upper extremity following procedure. Our attention was then directed to the right side. Image intensifier was then brought into position over the right shoulder and AP imaging obtained. The area was then prepped and draped in aseptic fashion using chlorhexidine. A sterile marker was then placed over the injection site. A 27-gauge 1-1/4 inch needle was then used to anesthetize skin and subcutaneous tissue with 2 mL of 1% preservative-free lidocaine. A 25-gauge 2-inch needle advanced under fluoroscopic guidance into the right shoulder under direct visualization. Needle was advanced until reaching the proximal head of the humerus. Needle was then retracted approximately 1 mm and aspiration noted to be negative for heme. After negative aspiration for heme, 0.4 mL of Omnipaque injected demonstrating an excellent right shoulder arthrogram. After negative aspiration for heme, 3 mL of a solution containing 1 mL 40 mg per mL, 40 mg total triamcinolone along with 2 mL bupivacaine 0.5% injected slowly. Needle retracted approximately half way, flushed with 1 mL of lidocaine preservative-free 1%. Sterile bandage was then placed over injection site. There were no new motor deficits present in the right upper extremity following procedure. The patient tolerated procedure well, carefully escorted to recovery room in stable condition. No apparent complications. After meeting discharge criteria, the patient discharged home. <ELECTRONICALLY SIGNED> By: Lucas Chapman DO 06/28/19 0801 0840 0015 Lucas Chapman DO /nt
== END | disposition home or self-care (01) ==
LOC: PAIN 06:58
DX: M25.511 Pain in right shoulder (principal); M25.512 Pain in left shoulder; M19.011 Primary osteoarthritis, right shoulder; M19.012 Primary osteoarthritis, left shoulder; G89.29 Other chronic pain; I10 Essential (primary) hypertension; F17.210 Nicotine dependence, cigarettes, uncomplicated; Z98.890 Other specified postprocedural states; Z79.891 Long term (current) use of opiate analgesic; Z79.82 Long term (current) use of aspirin; Z88.0 Allergy status to penicillin; Z79.899 Other long term (current) drug therapy

== ENCOUNTER → 2019-08-24 | Outpatient (CLI) | payer OTHER ==
[~2019-08-24] VITALS: Ht 177.8 cm; Wt 114.9 kg
[2019-08-24 14:12] VITALS: BP 111/74
--- NOTE | 2019-08-24 14:18 | NUR ---
Pain Clinic Assessment: 1. History of Osteoarthritis: Left Lower Extremity Left Upper Extremity Right Lower Extremity Right Upper Extremity History of Rheumatoid Arthritis: Not Applicable 2. Height: 5 ft. 10 in. 177.8 cm. Weight: 253.2 lb. oz. 114.851 kg. Patient's BMI: 36.3 3. Vital Signs: BP: 111/74 Pulse: 49 Resp: 16 Temp: 02 Sat: 99 ECG Mon: 4. Pain Intensity: 4 WITH MEDS 5. Fall Risk: Dizziness: N Needs help standing or walking: N Fallen in the last 3 months: N Fall risk comments: 6. Patient on Blood Thinner: None 7. History of Hypertension: Y 8. Opioid Therapy greater than 6 weeks: Y Opiate Contract Signed: 04/14/18 9. Risk Assessment Tool Provided: LOW 0 10. Functional Assessment Tool: 11. Recreational Drug Use: Never Drug Type: Tobacco Use: Current Every Day Smoker Tobacco Type: Cigarettes Amount or Packs/day: 1/2 How Many Years: 45 Alcohol Use: No Frequency: Quant:
--- NOTE | 2019-08-25 07:54 | HPC ---
[address] [place] [address] PAIN MANAGEMENT CONSULTATION Name: ALEJANDRA CHAPMAN [facility] [id number] Admission: 08/24/19 Attend Phys: Maria Elena Alexis Discharge: Date of : 56 Report #: [id number] THIS REPORT FOR: //name// CC: Maria Elena Valente DO DATE OF SERVICE: 08/24/2019 CHIEF COMPLAINT: Bilateral shoulder pain, chronic low back pain. HISTORY OF PRESENT ILLNESS: This is a 59-year-old gentleman who returns to the pain clinic today for continuation of his medical management that he uses to help treat his ongoing bilateral shoulder pain and low back pain. He is reporting a pain score of 4/10 with his medications. He feels that they work very well in controlling his pain. He reports it is an aching tenderness with occasional stabbing. It is exacerbated by activity or using his arms for a significant amount of time. He feels his medication as well as his spinal cord stimulator and periodic epidural shoulder injections are very beneficial in allowing him to be as active as he would like. He feels that since he is retired he does have slightly decrease in his pain since he is not physically using his arms like he had in the past. He is here today for refill of his medications. He does have one prescription left of his oxycodone that he is due to fill tomorrow, but he knows with the holidays he assumed he should have an appointment prior to running out. ALLERGIES: PENICILLIN. CURRENT LIST OF MEDICATIONS: Oxycodone 10/325 p.r.n., Zyrtec, Toprol, triamterene, TriCor, Crestor, Avapro, aspirin and amlodipine. PQRS: 1. The patient has known arthritic changes in his bilateral shoulders, lumbar and cervical spine. He denies any rheumatoid arthritis. 2. Height is 5 feet 10 inches, weight is 253, BMI is 36. 3. Vital signs 111/74, pulse is 49, respirations 16, oxygen sat is 99. 4. Pain score is 4/10. 5. Denies dizziness, does not need help walking or standing, has not fallen in the last 3 months. 6. The patient is not on any blood thinners, but does take medicine for hypertension. 7. Opiate therapy is greater than 6 weeks; therefore, an opioid signed contract is on the chart. Risk assessment tool is low. Functional assessment is 44/70. 8. Recreational drug use, he denies. He is a current smoker of half pack of cigarettes a day and does not drink alcohol. [address] [address] PAIN MANAGEMENT CONSULTATION Name: ALEJANDRA CHAPMAN Room #: REG [facility].#: [id number] Admission: 08/24/19 Attend Phys: Maria Elena Alexis Discharge: Date of : 56 Report #: [id number] According to the prescription monitoring system, the patient is filling appropriately for his medications filling in a timely fashion. In fact, he has his 10-week prescription here with him today that he has not filled yet. PHYSICAL EXAMINATION: GENERAL: This is a well-developed, well-nourished, well-hydrated exogenous obese 59-year-old gentleman who appears his stated age, placing his current pain score of 4/10. HEENT: Normocephalic, atraumatic. Extraocular eye muscles are intact. Mucous membranes are moist. EXTREMITIES: No clubbing, no cyanosis, no edema. MUSCULOSKELETAL: There is palpatory tenderness over his paraspinal muscles of his lumbar spine. He does have increased pain in active and passive range of motion in his bilateral extremities. This is decreased since his injection. Muscle bulk and tone is equal and symmetrical in his upper extremities. He walks with a slightly antalgic gait. ASSESSMENT: 1. Bilateral shoulder pain. 2. Bilateral shoulder osteoarthritis. 3. Chronic low back pain. 4. Chronic lumbar radiculopathy. 5. Lumbosacral spondylosis with radiculopathy. 6. Complex medical management under terms of written opioid agreement. We reviewed the fact that opiate medications are being used to provide analgesia adequate to support activities of daily living, not attempting to achieve a specific pain score on the 0-10 Visual Analog Scale. The current opiate medications are providing sufficient analgesia to allow the patient to participate in activities of daily living. The patient is not exhibiting any aberrant behavior suggestive of drug diversion. The patient is not having any adverse reactions to medications. The patient is not suffering from daytime somnolence or mental acuity changes. The patient is managing opiate-induced constipation with appropriate ajrx-sig-vxbvdbs agents and dietary considerations. The patient was counseled on concern for caution with operating a motor vehicle while using opiate medications. PLAN: 1. We discussed treatment options with the patient today. The patient is doing quite well since his previous injection, rating his pain a 4/10. He feels that the bilateral shoulder injections helped at 90% for at least 2 months. He would like to schedule an appointment in September since his injections usually last about 3 months. We will make that appointment prior to his discharge today. 2. We will refill his medications of his Percocet , #75. His insurance only allows a 2-week supply of medicine, so we have written these for release [address] [place] [address] PAIN MANAGEMENT CONSULTATION Name: ALEJANDRA CHAPMAN Room #: REG [facility] Gabe#: [id number] Admission: 08/24/19 Attend Phys: Maria Elena Alexis Discharge: Date of : 56 Report #: [id number] today, 2-week, 4-week 6-week and 8-week and 10-week and sent them electronically to his pharmacy. He did return his 10-week prescription and we did destroy that from his last visit. 3. The patient denies any problems with daytime sleepiness or constipation. The patient is seen in collaboration today with Dr. Lucas Chapman. <ELECTRONICALLY SIGNED> By: Maria Elena Alexis 08/25/19 0754 1503 14 Maria Elena Alexis /nt
== END ==
LOC: PAIN 07:02
DX: M19.011 Primary osteoarthritis, right shoulder (principal); M19.012 Primary osteoarthritis, left shoulder; M47.27 Other spondylosis with radiculopathy, lumbosacral region; Z79.891 Long term (current) use of opiate analgesic

== ENCOUNTER → 2019-10-12 | Outpatient (CLI) | payer OTHER ==
[~2019-10-12] VITALS: Ht 177.8 cm; Wt 116.8 kg
--- NOTE | 2019-10-12 13:09 | NUR ---
Pain Clinic Assessment: 1. History of Osteoarthritis: Left Lower Extremity Left Upper Extremity Right Lower Extremity Right Upper Extremity History of Rheumatoid Arthritis: Not Applicable 2. Height: ft. in. cm. Weight: lb. oz. kg. Patient's BMI: 3. Vital Signs: BP: Pulse: Resp: Temp: 02 Sat: ECG Mon: 4. Pain Intensity: 7-8 5. Fall Risk: Dizziness: Needs help standing or walking: Fallen in the last 3 months: Fall risk comments: 6. Patient on Blood Thinner: None 7. History of Hypertension: Y 8. Opioid Therapy greater than 6 weeks: Y Opiate Contract Signed: 04/14/18 9. Risk Assessment Tool Provided: LOW 0 10. Functional Assessment Tool: 11. Recreational Drug Use: Never Drug Type: Tobacco Use: Current Every Day Smoker Tobacco Type: Amount or Packs/day: 3-4 CIG/DAY How Many Years: Alcohol Use: No Frequency: Quant:
[2019-10-12 13:20] VITALS: BP 129/75
--- NOTE | 2019-10-14 07:46 | HPC ---
[address] [address] PAIN MANAGEMENT CONSULTATION Name: ALEJANDRA CHAPMAN Room #: [facility] [id number] Admission: 10/12/19 Attend Phys: Lucas Chapman DO Discharge: Date of : 56 Report #: [id number] THIS REPORT FOR: cc: Rafat Valente Russell J. DO Johnson, James E. DO ~ THIS REPORT FOR: //name// CC: Lucas Valente DO DATE OF SERVICE: 10/12/2019 REFERRING PHYSICIAN: Rafat Valente DO CHIEF COMPLAINT: Bilateral shoulder pain, chronic low back pain. HISTORY OF PRESENT ILLNESS: As you know, the patient is a very pleasant 59-year-old male who has returned today in followup visit to undergo bilateral intra-articular shoulder injections under fluoroscopic guidance. As you are aware, the patient has undergone surgery in both shoulders but continues to experience pain that he describes as aching tenderness and stabbing. He places pain today at 7-8/10. Pain is exacerbated with activities, using his arms, weather changes and lifting, improves with medications and Voltaren gel applied topically and intraarticular injections. He returns today to undergo bilateral intra-articular shoulder injections and also requesting a prescription for Voltaren 3% solution to apply topically to the shoulders for pain control. The patient has been utilizing his 's Voltaren 1% solution and wishes a prescription of this medication to be made available to address his bilateral osteoarthritic shoulder pain. ALLERGIES: PENICILLIN. CURRENT MEDICATIONS: Oxycodone 10/325 one tab p.o. q. 6 hours p.r.n. for pain, Zyrtec 10 mg once a day, metoprolol 100 mg once a day, triamterene/hydrochlorothiazide 37.5/25 once a day, TriCor 145 mg per day, rosuvastatin 10 mg per day, irbesartan 300 mg once a day, amlodipine 10 mg per day, aspirin 81 mg per day. SOCIAL HISTORY: The patient reports he continues to smoke. Denies IV or illicit drug use. Denies any chronic alcohol use. He is retired, unaccompanied today. IMAGING: There is no new imaging available. [address] [address] PAIN MANAGEMENT CONSULTATION Name: ALEJANDRA CHAPMAN [facility] [id number] Admission: 10/12/19 Attend Phys: Lucas Chapman DO Discharge: Date of : 56 Report #: [id number] PQRS: The patient has known arthritic changes of the bilateral shoulders, bilateral hips, bilateral knees and lumbar spine. No rheumatoid arthritis. He is placing current pain score at 7-8/10. He is not a fall risk, has not had a fall in last 3 months. He is not on blood thinners, but is treated for hypertension. He is on chronic opioids and has a low opioid addiction potential based on our assessment tool. Functional/pain assessment 52/70 indicating severe interference of daily activities secondary to pain. PHYSICAL EXAMINATION: VITAL SIGNS: Blood pressure 127/75, pulse 54, respiratory rate 16 and unlabored. The patient is 95% on room air. GENERAL: Well-developed, well-nourished, well-hydrated, 59-year-old male appearing stated age, pain is rated today around 7-8/10. HEENT: Normocephalic, atraumatic. Pupils equal, round, reactive to light. Speech is fluent. EXTREMITIES: Show no clubbing, no cyanosis, and no edema. MUSCULOSKELETAL: Active and passive range of motion is once again met with increased pain. It appears to be greater on the right. There are well-healed surgical scars over each shoulder. He remains intact to light touch throughout the dermatomes of the upper extremities. 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 Muscle bulk and tone is symmetrical in comparing both upper extremities. Spurling's test is negative. ASSESSMENT: 1. Bilateral shoulder pain. 2. Bilateral shoulder osteoarthritis. 3. Continued chronic low back pain. PLAN: 1. The patient returns today in followup visit requesting to undergo bilateral intra-articular shoulder injections under fluoroscopic guidance. He is reporting good efficacy with previous intra-articular shoulder injections, stating they provided a 70% -80% improvements in overall pain until just recently where he has had a slow and progressive return of symptoms. He has been advised the risks and benefits of bilateral intra-articular shoulder injection, states understood and wished to proceed. 2. The patient reports that he has been utilizing his 's Voltaren 1% solution applied topically up to 3-4 times a day to his shoulders with some benefit. We would recommend an increase from the 1% to 3% solution to benefit the patient further. We have prescribed the patient Voltaren gel 3% solution to be applied four times a day up to 4 inches total for pain control. I have given the patient 5 tubes 100 grams each. He can utilize this on an as needed basis. He will watch for any side effects with the medication, though he has not had any at the Voltaren 1% solution. He will likely will not see any at 3%, but watch for any skin irritation or worsening of blood pressure, lower extremity edema or any concerns that he might note with nonsteroidal anti-inflammatory [facility] [address] [place] [address] PAIN MANAGEMENT CONSULTATION Name: ALEJANDRA CHAPMAN Room #: REG [facility] [id number] Admission: 10/12/19 Attend Phys: Lucas Chapman DO Discharge: Date of : 56 Report #: [id number] use. If he notes any side effects, discontinue immediately, call for further instructions. Prescription was provided to the patient in written form. 3. We will see the patient back in followup visit at our preapproved appointment time for continuation of medication management. If he wishes, he can return to undergo intra-articular shoulder injections within 2 months. PROCEDURE NOTE DESCRIPTION OF PROCEDURE: Bilateral intra-articular shoulder injections under fluoroscopic guidance. After obtaining written consent, the patient was taken back to fluoroscopy suite, placed in supine position. The image intensifier was then brought into position over the left shoulder and AP imaging was obtained. The area was then prepped and draped in aseptic fashion using chlorhexidine. A sterile marker was used to place __ over the injection site. A 27-gauge 1-1/4 inch needle was then used to anesthetize skin and subcutaneous tissue with 2 mL of 1% preservative-free lidocaine. A 25-gauge 2-inch needle was then advanced into the left shoulder under direct visualization with fluoroscopy. Needle was advanced until reaching the proximal head of the humerus. Needle was then retracted approximately 1 mm and aspiration noted to be negative for heme. After negative aspiration for heme, 0.3 mL of Omnipaque injected demonstrating excellent left shoulder arthrogram. After negative aspiration for heme, 3 mL of a solution containing 1 mL, 40 mg per mL, 40 mg total triamcinolone, 2 mL bupivacaine 0.5% injected slowly. Needle retracted group home, flushed with 1 mL of 1% lidocaine and then removed. Sterile bandage was then placed over the injection site. Our attention was then directed to the right side. Image intensifier was brought into position over the right shoulder and AP imaging was obtained. The area was then prepped and draped in aseptic fashion using chlorhexidine. A sterile marker was then used to andres the injection site. A 27-gauge 1-1/4 inch needle was then used to anesthetize skin and subcutaneous tissue with 2 mL of preservative-free 1% lidocaine. A 25-gauge 2-inch needle advanced under fluoroscopic guidance into the right shoulder under direct visualization with fluoroscopic imaging. Needle was advanced until reaching the proximal head of the humerus. Needle was then retracted approximately 1 mm and aspiration noted to be negative for heme. After negative aspiration for heme, 0.4 mL of Omnipaque injected demonstrating an excellent right shoulder arthrogram. After negative aspiration for heme, 3 mL of a solution containing 1 mL, 40 mg per mL, 40 mg total triamcinolone along with 2 mL of bupivacaine 0.5% injected slowly. Needle retracted group home, flushed with 1 mL of 1% lidocaine and then removed. Sterile bandage placed over injection site. No new motor deficits present in either the left or right upper [address] [address] PAIN MANAGEMENT CONSULTATION Name: ALEJANDRA CHAPMAN Room #: REG CLI Gabe#: [id number] Admission: 10/12/19 Attend Phys: Lucas Chapman DO Discharge: Date of : 56 Report #: [id number] extremity after procedure. The patient tolerated the procedure well, carefully escorted to recovery room in stable condition. No apparent complications. After meeting discharge criteria, the patient discharged home. <ELECTRONICALLY SIGNED> By: Lucas Chapman DO 10/14/19 0746 [id number] Lucas Chapman DO /nt
== END | disposition home or self-care (01) ==
LOC: PAIN 06:51
DX: M25.511 Pain in right shoulder (principal); M25.512 Pain in left shoulder; G89.29 Other chronic pain; M54.5 Low back pain; I10 Essential (primary) hypertension; M19.90 Unspecified osteoarthritis, unspecified site; F17.210 Nicotine dependence, cigarettes, uncomplicated; Z98.890 Other specified postprocedural states; Z79.899 Other long term (current) drug therapy; Z88.0 Allergy status to penicillin; Z79.891 Long term (current) use of opiate analgesic; Z79.82 Long term (current) use of aspirin

== ENCOUNTER → 2019-11-02 | Outpatient (CLI) | payer OTHER ==
[~2019-11-02] VITALS: Ht 177.8 cm; Wt 110.7 kg
[~2019-11-02] MED LIST changes: +VOLTAREN100 GM TOP
[2019-11-02 12:50] VITALS: BP 115/74
--- NOTE | 2019-11-02 13:05 | NUR ---
Pain Clinic Assessment: 1. History of Osteoarthritis: Left Lower Extremity Left Upper Extremity Right Lower Extremity Right Upper Extremity History of Rheumatoid Arthritis: Not Applicable 2. Height: 5 ft. 10 in. 177.8 cm. Weight: 244.0 lb. oz. 110.678 kg. Patient's BMI: 35.0 3. Vital Signs: BP: 115/74 Pulse: 60 Resp: 16 Temp: 02 Sat: 98 ECG Mon: 4. Pain Intensity: 2 5. Fall Risk: Dizziness: N Needs help standing or walking: N Fallen in the last 3 months: N Fall risk comments: 6. Patient on Blood Thinner: None 7. History of Hypertension: Y 8. Opioid Therapy greater than 6 weeks: Y Opiate Contract Signed: 04/14/18 9. Risk Assessment Tool Provided: LOW 0 10. Functional Assessment Tool: 11. Recreational Drug Use: Never Drug Type: Tobacco Use: Current Every Day Smoker Tobacco Type: Cigarettes Amount or Packs/day: 3-4 per day How Many Years: 40 Alcohol Use: No Frequency: Quant:
--- NOTE | 2019-11-04 08:41 | HPC ---
[facility] [employer] [address] PAIN MANAGEMENT CONSULTATION Name: ALEJANRDA CHAPMAN Justin Room #: REG [facility].#: [id number] Admission: 11/02/19 Attend Phys: Maria Elena Alexis Discharge: Date of : 56 Report #: [id number] THIS REPORT FOR: cc: Rafat Valente,Rafat Valentin,Maria Elena MENSAH ~ CC: Maria Elena Valente DATE OF SERVICE: 11/02/2019 CHIEF COMPLAINT: Bilateral shoulder pain, chronic low back pain. HISTORY OF PRESENT ILLNESS: This is a very pleasant 59-year-old gentleman who returns to the pain clinic today for refill of his medications. Today he is reporting a pain score of 2/10. Most of it is located across his lower back. He does also have issues with his bilateral shoulders, but he recently had an intraarticular joint injection in early October by Dr. Lucas Chapman. He reports that he is at least 80% better since that injection in his shoulders. Today he is requesting refills of his medication that he does take sparingly. He uses it when he has increased activity or the weather changes, some days he is requiring only one pill a day, other days he does require at least 3. He does use his spinal cord stimulator to help decrease his pain as well. I noticed he had lost about 10 pounds since our last visit. He states that he recently started wearing compression stockings due to some edema in his lower extremities. He did see a vein doctor, ordered a Doppler, he did not have any clots present in his legs since he has started wearing the compression stockings. He has been able to reduce the swelling and today has no edema present in his lower extremities and therfore reduce his weight. ALLERGIES: PENICILLIN. CURRENT LIST OF MEDICATIONS: Oxycodone 10/325 p.r.n., Zyrtec, metoprolol, Maxzide, fenofibrate, Crestor, Avapro, aspirin and amlodipine. PQRS: 1. He has a history of diffuse osteoarthritis in his upper and lower extremities. Denies any rheumatoid arthritis. 2. Height is 5 feet 10 inches, weight is 244, BMI is 35. 3. Vital signs 115/74, pulse is 60, respirations 16, oxygen sat is 98. 4. Pain score is 2/10. 5. Denies dizziness, does not need help walking or standing, has not fallen in the last 3 months. 6. The patient is not on any blood thinners, but does take medicine for hypertension. Opioid therapy is greater than 6 weeks; therefore, an opioid signed contract on the chart. Risk assessment [place] [address] PAIN MANAGEMENT CONSULTATION Name: ALEJANDRA CHAPMAN Room #: REG [facility] Bernal#: [id number] Admission: 11/02/19 Attend Phys: Maria Elena Alexis Discharge: Date of : 56 Report #: [id number] assessment is 52/70. 7. Recreational drug use, he denies. He is a current smoker of 3-4 cigarettes a day and denies any alcohol use. According to the prescription monitoring system, the patient is filling appropriately and on time. He did fill his last prescription today. According to the CDC guidelines, his morphine mEq per day is 75. There is a recent drug screen on the chart that is appropriate as well for this gentleman. PHYSICAL EXAMINATION: GENERAL: This is alert and orientated 59-year-old gentleman who appears his stated age, placing his current pain score 2/10. HEENT: Normocephalic, atraumatic. Extraocular eye muscles are intact. Mucous membranes are moist. EXTREMITIES: No clubbing, no cyanosis, no edema. Wearing compression hose today. MUSCULOSKELETAL: He has well-healed surgical scars over his shoulders, that he has active and passive range of motion, that has decreased pain since previous injections. He complains of pain across his lumbar spine, has good sensation from L1-S2 dermatomal distribution. Lower extremity strength is 5/5 in all major muscle groups. ASSESSMENT: 1. Bilateral shoulder pain. 2. Bilateral osteoarthritis. 3. Chronic low back pain. 4. Management of high risk medications under terms of written opioid agreement. PLAN: 1. We discussed treatment options with the patient today. The patient is doing quite well since his bilateral intra-articular shoulder joint injections, stating that they helped at least 80%. Since his injections, continues to do quite well and has had increased range of motion with less pain since the injections. 2. The patient is requesting refills of his oxycodone . We will send these electronically by Dr. Lucas Chapman filling every 2 weeks per his insurance request so he fills them currently at 2 weeks, 4 weeks, 6 weeks and 8-week and 10 weeks. Scripts were given for this patient a total of 3 months. 3. The patient states the insurance did not fill the Voltaren 3% gel that Dr. Lucas Chapman prescribed. I will send an electronic script for 1% Voltaren gel and hopefully insurance will cover this percentage for him. The patient finds it very beneficial in his osteoarthritic shoulders. The patient [address] [address] PAIN MANAGEMENT CONSULTATION Name: ALEJANDRA CHAPMAN Room #: REG CL Gabe#: [id number] Admission: 11/02/19 Attend Phys: Maria Elena Alexis Discharge: Date of : 56 Report #: [id number] instructed to call us if the pharmacy does not feel this medication. 4. The patient is seen in collaboration with Dr. Lucas Chapman. <ELECTRONICALLY SIGNED> By: Maria Elena Alexis 11/04/19 0841 [id number] Maria Elena Alexis /rica
== END ==
LOC: PAIN 06:50
DX: M19.011 Primary osteoarthritis, right shoulder (principal); M19.012 Primary osteoarthritis, left shoulder; M54.5 Low back pain; Z79.891 Long term (current) use of opiate analgesic

== ENCOUNTER → 2020-02-14 | Outpatient (CLI) | payer OTHER ==
[~2020-02-14] VITALS: Ht 177.8 cm; Wt 121.1 kg
[~2020-02-14] MED LIST changes: +PERCOCET 10-321 EAC1 PO
[2020-02-14 10:36] VITALS: BP 102/63
--- NOTE | 2020-02-14 10:51 | NUR ---
Pain Clinic Assessment: 1. History of Osteoarthritis: Left Lower Extremity Left Upper Extremity Right Lower Extremity Right Upper Extremity History of Rheumatoid Arthritis: Not Applicable 2. Height: 5 ft. 10 in. 177.8 cm. Weight: 267.0 lb. oz. 121.111 kg. Patient's BMI: 38.3 3. Vital Signs: BP: 102/63 Pulse: 53 Resp: 20 Temp: 02 Sat: 98 ECG Mon: 4. Pain Intensity: 3-4 5. Fall Risk: Dizziness: N Needs help standing or walking: N Fallen in the last 3 months: Y Fall risk comments: 6. Patient on Blood Thinner: None 7. History of Hypertension: Y 8. Opioid Therapy greater than 6 weeks: Y Opiate Contract Signed: 04/14/18 9. Risk Assessment Tool Provided: LOW 0 10. Functional Assessment Tool: 11. Recreational Drug Use: Never Drug Type: Tobacco Use: Current Every Day Smoker Tobacco Type: Cigarettes Amount or Packs/day: 3 CIGS DAY How Many Years: Alcohol Use: No Frequency: Quant:
--- NOTE | 2020-02-14 14:26 | HPC ---
[facility] [address] [place] [address] PAIN MANAGEMENT CONSULTATION Name: ALEJADNRA CHAPMAN Room #: REG [facility].#: [id number] Admission: 02/14/20 Attend Phys: Maria Elena Alexis Discharge: Date of : 56 Report #: [id number] THIS REPORT FOR: cc: Rafat Valente Russell J. DO Hocker, Amanda CNS ~ CC: Lucas Chapman DO DATE OF SERVICE: 02/14/2020 CHIEF COMPLAINT: Bilateral shoulder pain and chronic low back pain. HISTORY OF PRESENT ILLNESS: This is a very pleasant 59-year-old gentleman who returns to the pain clinic today for refill of his opioid medications that he takes to help relieve his shoulders and back pain. He is reporting a pain score of 3-4 today. He states he had been doing quite well since our last visit and his recent shoulder injection. He did fall on a rug at home, did hurt his back. He has been using his spinal cord stimulator more frequently and has increased his pain pills by 1 pill for a few days to help relieve the discomfort. He believes that it is slowly improving, but does complain of a stabbing tenderness in his lower back. He states that he is needing to charge his spinal cord stimulator more frequently because of its increased usage. Normally weather changes and activity do increase his pain. He does do most of the housework since his had had a stroke, times that may increase his pain as well. ALLERGIES: PENICILLIN. CURRENT LIST OF MEDICATIONS: Oxycodone 10/325 up to 5 pills a day, Voltaren gel to his shoulders as needed, Zyrtec, Toprol, triamterene, TriCor, Crestor, irbesartan, aspirin and amlodipine. PQRS: 1. He has osteoarthritis in his upper and lower extremities. Denies any rheumatoid arthritis. 2. Height is 5 feet 10 inches, weight is 267, BMI is 38. 3. Vital signs 102/63, pulse is 53, respirations 20, oxygen sat is 98%. 4. Pain score is 4/10. 5. Denies dizziness, does not need help walking or standing, and fell recently at home, but did not seek medical attention. 6. The patient is not on any blood thinners, but does take medicine for hypertension. 7. Opiate therapy is greater than 6 weeks; therefore, an opioid signed contract is on the chart. Risk assessment tool is low. Functional assessment is 52/70. 8. Recreational drug use, he denies; current smoker of 3 cigarettes a day and [place] [address] PAIN MANAGEMENT CONSULTATION Name: ALEJANDRA CHAPMAN Room #: REG CL Gabe#: [id number] Admission: 02/14/20 Attend Phys: Maria Elena Alexis Discharge: Date of : 56 Report #: [id number] According to the prescription monitoring system, the patient is filling appropriately for his medications. He is due to fill this week according to the CDC guidelines. His morphine mEq per day is 75 morphine mEq. There is a drug screen on the chart in the past. We will repeat this at his next visit. PHYSICAL EXAMINATION: GENERAL: This is a well-developed, well-nourished, well-hydrated 59-year-old gentleman who appears his stated age, placing his current pain score at 3-4. HEENT: Normocephalic, atraumatic. Extraocular eye muscles are intact. He is wearing a mask. EXTREMITIES: No clubbing, no cyanosis, no edema. MUSCULOSKELETAL: He has well-healed surgical scars over his shoulders. Passive and active range of motion is decreased due to pain. He has pain in his lumbosacral region of his spine with lower extremity strength is 5/5 in all major muscle groups with good sensation from L1-S2. He has a spinal cord stimulator battery in place. ASSESSMENT: 1. Bilateral shoulder pain. 2. Bilateral osteoarthritis of his shoulders and knees. 3. Chronic low back pain. 4. Management of high-risk medications under terms of written opioid agreement. We reviewed the fact that opiate medications are being used to provide analgesia adequate to support activities of daily living, not attempting to achieve a specific pain score on the 0-10 Visual Analog Scale. The current opiate medications are providing sufficient analgesia to allow the patient to participate in activities of daily living. The patient is not exhibiting any aberrant behavior suggestive of drug diversion. The patient is not having any adverse reactions to medications. The patient is not suffering from daytime somnolence or mental acuity changes. The patient is managing opiate-induced constipation with appropriate [id number] agents and dietary considerations. The patient was counseled on concern for caution with operating a motor vehicle while using opiate medications. A physical exam was performed and the patient's functional status was evaluated. All patients with back pain were advised against the bed rest greater than 4 days and were advised to return to normal activities. Pain score assessment was noted and the treatment plan was reviewed with the patient. All current medications, both prescribed and OTC were reviewed and reconciled on the electronic medical record. Tobacco screening was accomplished and smoking cessation was advised when indicated. BMI was noted and diet/exercise modification was recommended for all patients following outside normal parameters. [address] [address] PAIN MANAGEMENT CONSULTATION Name: ALEJANDRA CHAPMAN Room #: REG CLI [facility]#: [id number] Admission: 02/14/20 Attend Phys: Maria Elena RODRICK Vanesa Discharge: Date of : 56 Report #: [id number] I reviewed with the patient today their responsibilities to safeguard prescription medications, reviewed their responsibility to utilize medications only as prescribed by the physician. They are to seek and receive pain medications only from 1 physician group ( [facility]). They are to use 1 pharmacy and keep the clinic informed if they change pharmacies. Their responsibilities include making followup visits in a timely fashion and to avoid abrupt discontinuation of medication usage. Their responsibilities further include bringing their medications (bottles from the pharmacy with residual pills) to the visit for possible confirmation of pill counts and the patient understands it is their responsibility to submit to random drug screens to ensure both that the medications prescribed are present, and that no other controlled substances are present. All prescriptions provided today were generated electronically. PLAN: 1. We discussed treatment options with the patient today. The patient finds his Voltaren gel very effective and would like refills. He believes as long as he is able to use this gel, he may be able to decrease his intra-articular shoulder joint injections. We will send this electronically to his pharmacy with several refills. I explained to him that it is now [id number], but hopefully his insurance will still continue to cover this medication. 2. We discussed his Percocet that he takes every 5 hours. He states he had taken an additional pain pill a day for several days. I encouraged him to decrease it back to his prescribed amount. He verbalizes understanding. We also learned that his insurance company will allow a full month of medications, so today, we will send 150 tablets to be released on 02/17/2020, 03/16/2019, and 04/13/2020 this should be a total of 90-day supply, and the patient will return in early May for an appointment. The patient verbalizes understanding. 3. Dr. Lucas Chapman did see the patient was discussed briefly. The patient may be obtaining a second opinion for back surgery with Dr. Aguila. We encouraged him to keep us abreast of any information or x-rays that he has taken. 4. The patient discharged to home. We will call for an appointment as needed. <ELECTRONICALLY SIGNED> By: Maria Elena Alexis 02/14/20 1426 1139 [id number] Maria Elena Alexis /nt
== END ==
LOC: PAIN 06:52
PROVIDERS: ATTEND Clinical Nurse Specialist Adult Health
DX: M17.0 Bilateral primary osteoarthritis of knee (principal); M19.011 Primary osteoarthritis, right shoulder; M19.012 Primary osteoarthritis, left shoulder; Z79.899 Other long term (current) drug therapy; Z88.0 Allergy status to penicillin; Z79.891 Long term (current) use of opiate analgesic

== ENCOUNTER → 2020-05-02 | Outpatient (CLI) | payer OTHER ==
[~2020-05-02] VITALS: Ht 177.8 cm; Wt 113.2 kg
[~2020-05-02] MED LIST changes: +MOBIC15 MG PO; +MOBIC7.5 MG PO; +VOLTAREN GEL 1100 G2 TOP
[2020-05-02 08:32] VITALS: BP 127/72
--- NOTE | 2020-05-02 09:20 | NUR ---
Pain Clinic Assessment: 1. History of Osteoarthritis: Left Lower Extremity Left Upper Extremity Right Lower Extremity Right Upper Extremity History of Rheumatoid Arthritis: Not Applicable 2. Height: 5 ft. 10 in. 177.8 cm. Weight: 249.6 lb. oz. 113.218 kg. Patient's BMI: 35.8 3. Vital Signs: BP: 127/72 Pulse: 90 Resp: 22 Temp: 02 Sat: 99 ECG Mon: 4. Pain Intensity: 3 AFTER PAIN MEDS 5. Fall Risk: Dizziness: N Needs help standing or walking: N Fallen in the last 3 months: Y Fall risk comments: 6. Patient on Blood Thinner: None 7. History of Hypertension: Y 8. Opioid Therapy greater than 6 weeks: Y Opiate Contract Signed: 04/14/18 9. Risk Assessment Tool Provided: LOW 0 10. Functional Assessment Tool: 11. Recreational Drug Use: Never Drug Type: Tobacco Use: Current Every Day Smoker Tobacco Type: Amount or Packs/day: How Many Years: Alcohol Use: No Frequency: Quant:
--- NOTE | 2020-05-03 12:26 | HPC ---
[facility] [address] [place] [address] PAIN MANAGEMENT CONSULTATION Name: ALEJANDRA CHAPMAN [facility] [id number] Admission: 05/02/20 Attend Phys: Maria Elena Alexis Discharge: Date of : 56 Report #: [id number] THIS REPORT FOR: cc: Rafat Valente Russell J. DO Hocker, Amanda CNS ~ CC: PORTILLO CHAPMAN DO DATE OF SERVICE: 05/02/2020 CHIEF COMPLAINT: Lumbar radiculopathy. HISTORY OF PRESENT ILLNESS: This is a pleasant 60-year-old gentleman who returns to the pain clinic today for renewal of his medications that he uses to treat his ongoing low back pain as well as bilateral shoulder pain. He states today his pain is most problematic in his lower back. He feels that the weather has been increasing his pain as well as caring for his . She had recently had a stroke, so he is doing more to take care of her at home. He states any prolonged activity does increase his pain. He does use his spinal cord stimulator at all times and finds that beneficial as well as his opioid medications. Today, he is reporting his pain as an aching, tender, occasionally stabbing pain in his low back, rating a pain score of 3/10 after his medications. 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 Today, he is wondering about a possible increase in his medications and a possible epidural as well as renewal in his medicines. ALLERGIES: PENICILLIN. CURRENT LIST OF MEDICATIONS: Oxycodone 10/325 p.r.n., diclofenac gel, Zyrtec, Toprol, Maxzide, fenofibrate, Crestor, Avapro, aspirin and amlodipine. PQRS: 1. He has arthritic changes in his upper and lower extremities. Denies any rheumatoid arthritis. 2. Height is 5 feet 10 inches, weight is 249, BMI is 35. 3. Vital signs; blood pressure 127/72, pulse is 90, respirations 22, oxygen sat is 99. Pain score is 3/10. 4. He denies dizziness, has not fallen and does not need assistance with ambulation. The patient is not on any blood thinners, but does take medicine for hypertension. 5. Opioid therapy is greater than 6 weeks; therefore, an opioid signed contract is on the chart. Risk assessment tool is low. Functional assessment is 52/70. 6. Recreational drug use, he denies. He is a current smoker and does not drink alcohol. [address] [address] PAIN MANAGEMENT CONSULTATION Name: ALEJANDRA CHAPMAN Room #: REG [facility] FarmPardeep#: [id number] Admission: 05/02/20 Attend Phys: Maria Elena Alexis Discharge: Date of : 56 Report #: [id number] According to the prescription monitoring system, the patient is filling appropriately for his medications, filling them in a timely fashion. He is due to have his medications filled on 05/11/2020. His morphine milliequivalent according to the CDC guidelines is 75. There is a recent drug screen on the chart that we will recheck again at his next medication fill. PHYSICAL EXAMINATION: GENERAL: This is alert and orientated, well-developed, slightly obese 60-year-old gentleman who appears his stated age, placing his current pain score at 3/10. HEENT: Normocephalic, atraumatic. Extraocular eye muscles are intact. He is wearing a mask. EXTREMITIES: No clubbing, no cyanosis, no edema. MUSCULOSKELETAL: Pain in his lumbosacral region of his spine. Lumbar provocation testing is met with increasing pain. His lower extremity strength judged to be 5/5 in all major muscle groups with good sensation from L1-S2. He has a spinal cord battery in place and well-healed approximated scars in his lumbar spine. He has tenderness over his shoulders today. ASSESSMENT: 1. Bilateral shoulder pain. 2. Lumbar radiculopathy. 3. Bilateral osteoarthritis of his shoulders and knees. 4. Chronic low back pain. 5. Management of high risk medications under terms of written opioid agreement. PLAN: 1. We discussed treatment options with the patient today. The patient states he had lumbar epidural steroid injections in the past by Dr. Chapman. He thought they were beneficial at that time. He is wondering if he may schedule an injection. I explained to him that since he is not having radicular symptoms down his bilateral legs today. Dr. Chapman may decide to perform facet injection since he does have pain in the axial back, but since epidural were beneficial in the past, he may repeat the epidural. Appointment made for next week with Dr. Chapman and he will evaluate and decide on treatment at that time. 2. The patient is requesting an increase in his oxycodone. I explained to him that we will try the injection first and also I have offered him an oral anti-inflammatory agent. He is not currently on any nonsteroidals orally. He does occasionally use Voltaren gel on his shoulders. We will do a trial of meloxicam 7.5 mg b.i.d. I instructed the patient to take this at least twice a day for a week to see if his symptoms decrease. If he is feeling better, he may decrease this medicine to once a day and then take it on an as needed basis or may continue it on a daily basis. I encouraged him to be alert to any GI discomfort that the medication may cause. If it does, he may need to stop this medication. The patient verbalizes understanding. Scripts sent for 7.5 mg, #60 [facility] [address] [place] [address] PAIN MANAGEMENT CONSULTATION Name: ALEJANDRA CHAPMAN Room #: REG CLMed Bernal#: [id number] Admission: 05/02/20 Attend Phys: Maria Elena Alexis Discharge: Date of : 56 Report #: [id number] with 1 refill as well as Voltaren gel was renewed. 3. We will have Dr. Portillo Chapman renew his Percocet , #150 to fill on 05/11/2020, 06/08/2020 and 07/06/2020. 4. The patient denies any daytime somnolence or constipation as a result of any of his opioid medications. The patient is seen today in collaboration with Dr. Portillo Chapman and will return next week for an injection. <ELECTRONICALLY SIGNED> By: Maria Elena Alexis 05/03/20 1226 [id number] Maria Elena Alexis /nt
== END ==
LOC: PAIN 06:46
PROVIDERS: ATTEND Clinical Nurse Specialist Adult Health
DX: M54.16 Radiculopathy, lumbar region (principal); M19.011 Primary osteoarthritis, right shoulder; M19.012 Primary osteoarthritis, left shoulder; M17.0 Bilateral primary osteoarthritis of knee; G89.29 Other chronic pain; Z79.891 Long term (current) use of opiate analgesic

== ENCOUNTER → 2020-05-08 | Outpatient (CLI) | payer OTHER ==
[~2020-05-08] VITALS: Ht 177.8 cm; Wt 116.9 kg
--- NOTE | ~2020-05-08 | HPC ---
[facility] [place] [address] PAIN MANAGEMENT CONSULTATION Name: ALEJANDRA CHAPMAN Room #: [facility]#: [id number] Admission: 05/08/20 Attend Phys: Lucas Chapman DO Discharge: Date of : 56 Report #: [id number] THIS REPORT FOR: cc: Rafat Valente,Lucas Hedrick DO ~ CC: Lucas Valente DO DATE OF SERVICE: 05/08/2020 CHIEF COMPLAINT: Low back pain. HISTORY OF PRESENT ILLNESS: As you know, the patient is a 60-year-old male who suffers from chronic lumbar radicular symptoms and bilateral shoulder pain. He has undergone intra-articular shoulder injections with good efficacy and reports continued good pain control from the previous injections. Unfortunately, his lumbar radicular symptoms have begun to return. No injury or trauma. He has adjusted his spinal cord stimulator, but still has not noticed significant benefit. He returns today in followup visit, requesting to undergo lumbar epidural injection under fluoroscopic guidance. He is reporting pain level of 8-9/10. The patient states no new injury, no new trauma that may have led to symptom reoccurrence. He has had no changes in his medical history since our visit dated 05/02/2020. ALLERGIES: PENICILLIN. CURRENT MEDICATIONS: Oxycodone, diclofenac gel, Zyrtec, metoprolol, Maxzide, fenofibrate, Crestor, Avapro, aspirin and amlodipine. SOCIAL HISTORY: The patient is an everyday smoker, smoking for many years. He denies IV or illicit drug use. Denies any chronic alcohol use. He is not working at present. He is unaccompanied today. IMAGING: No new imaging available. PQRS: The patient has known arthritic changes of bilateral shoulders, cervical spine, lumbar spine. No rheumatoid arthritis. He is placing pain intensity at 8-9/10. He is not at fall risk nor has he had a fall in last 3 months. He is not on blood thinners, but is treated for hypertension. He is on chronic opioids and has a low opioid addiction potential based on our assessment tool. Pain impact today , severe interference of daily activities secondary to pain. PHYSICAL EXAMINATION: [facility] [address] [place] [address] PAIN MANAGEMENT CONSULTATION Name: ALEJANDRA CHAPMAN Room #: REG [facility]#: [id number] Admission: 05/08/20 Attend Phys: Lucas Chapman DO Discharge: Date of : 56 Report #: [id number] VITAL SIGNS: Blood pressure 122/77, pulse 56, respiratory rate 22 and unlabored. The patient is 100% on room air. Height 5 feet 10 inches tall, weight 257.8 pounds, and BMI calculated 37.0. GENERAL: Well-developed, well-nourished, well-hydrated exogenously obese 60-year-old male appearing stated age, pain is rated today 8-9/10. HEENT: Normocephalic, atraumatic. Pupils equal, round and reactive. Speech is fluent. EXTREMITIES: Show no clubbing, no cyanosis. No appreciable edema. MUSCULOSKELETAL: Lower extremity strength is symmetrical at 5/5. Muscle bulk and tone is equal and symmetrical in comparing left lower extremity to right. Seated straight leg raising negative. Supine straight leg raising is mildly positive, mainly on the right. Rolo's test is negative. Modified Gaenslen's positive for axial low back pain. ASSESSMENT: 1. Lumbar radiculopathy. 2. Lumbosacral spondylosis with radiculopathy. 3. 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 4. Bilateral shoulder pain. 5. Chronic intractable pain. PLAN: 1. The patient has returned today in followup visit with recurrence of lumbar radicular symptoms, for which he places pain score at 8-9/10. Despite adjusting his spinal cord stimulator, he has not noticed much in the way of improvement in symptoms. He has even changed some of his daily habits and again no change in overall pain. He made today's appointment to undergo lumbar epidural injection under fluoroscopic guidance in hopes of improving lumbar radiculopathy. The patient has been advised risks and benefits of lumbar epidural injection. These risks include, but are not necessarily limited to bleeding, bruising, infection, worsening pain, no relief of pain, also risk of temporary or permanent muscle weakness, temporary or permanent nerve damage, possible paralysis and . The patient states understood and wished to proceed. 2. No medication changes made at today's visit. The patient will continue current medical therapy as prior prescribed. 3. We will see the patient back in followup visit on an as needed basis for possible next in the series of lumbar epidural injections. We are hopeful the patient will see good and prolonged benefit with today's procedure. PROCEDURE NOTE DESCRIPTION OF PROCEDURE: L4-L5 interlaminar epidural steroid injection under fluoroscopic guidance. After obtaining written consent, the patient was taken back to fluoroscopy suite, placed in prone position with pillow under abdomen to decrease lumbar [address] [address] PAIN MANAGEMENT CONSULTATION Name: ALEJANDRA CHAPMAN Justin Room #: REG CLI Gabe#: [id number] Admission: 05/08/20 Attend Phys: Lucas Chapman DO Discharge: Date of : 56 Report #: [id number] lordosis. Skin overlying the lumbosacral area then prepped and draped in aseptic fashion. The L4-L5 vertebral interspace identified by AP fluoroscopy. Skin and subcutaneous tissue overlying target site injection anesthetized with 3 mL of 1% lidocaine. A 20-gauge 3-1/2 inch Tuohy needle advanced under fluoroscopic guidance towards the epidural space using a midline approach. Epidural space identified using loss of resistance to air technique. After negative aspiration for heme or cerebrospinal fluid, 1 mL of Omnipaque injected. Lumbar epidurogram confirmed using both AP and lateral fluoroscopy. After negative aspiration for heme or cerebrospinal fluid, 5 mL of a solution containing 2 mL 40 mg per mL ____ 80 mg total triamcinolone along with 3 mL of lidocaine 1% injected slowly. Needle retracted fci, flushed with 1 mL of 1% lidocaine and removed. Sterile bandage placed over injection site. No new motor deficits present in the lower extremity following procedure. The patient tolerated procedure well, carefully escorted to recovery room in stable condition. No apparent complications. After meeting discharge criteria, the patient discharged home. By: [id number] Lucas Chapman DO /nt
[2020-05-08 14:15] VITALS: BP 122/77
--- NOTE | 2020-05-08 14:36 | NUR ---
Pain Clinic Assessment: 1. History of Osteoarthritis: Left Lower Extremity Left Upper Extremity Right Lower Extremity Right Upper Extremity History of Rheumatoid Arthritis: Not Applicable 2. Height: 5 ft. 10 in. 177.8 cm. Weight: 257.8 lb. oz. 116.938 kg. Patient's BMI: 37.0 3. Vital Signs: BP: 122/77 Pulse: 56 Resp: 22 Temp: 02 Sat: 100 ECG Mon: 4. Pain Intensity: 8-9 5. Fall Risk: Dizziness: N Needs help standing or walking: N Fallen in the last 3 months: N Fall risk comments: 6. Patient on Blood Thinner: None 7. History of Hypertension: Y 8. Opioid Therapy greater than 6 weeks: Y Opiate Contract Signed: 04/14/18 9. Risk Assessment Tool Provided: LOW 0 10. Functional Assessment Tool: 11. Recreational Drug Use: Never Drug Type: Tobacco Use: Current Every Day Smoker Tobacco Type: Cigarettes Amount or Packs/day: 3 How Many Years: Alcohol Use: No Frequency: Quant:
== END | disposition home or self-care (01) ==
LOC: PAIN 06:56
PROVIDERS: ATTEND Anesthesiology Pain Medicine
DX: M47.27 Other spondylosis with radiculopathy, lumbosacral region (principal); M19.90 Unspecified osteoarthritis, unspecified site; M25.511 Pain in right shoulder; M25.512 Pain in left shoulder; G89.29 Other chronic pain; F17.210 Nicotine dependence, cigarettes, uncomplicated; Z98.890 Other specified postprocedural states; Z79.899 Other long term (current) drug therapy; Z79.891 Long term (current) use of opiate analgesic; Z88.0 Allergy status to penicillin

== ENCOUNTER → 2020-06-06 | Outpatient (CLI) | payer OTHER ==
[~2020-06-06] VITALS: Ht 177.8 cm; Wt 110.5 kg
[2020-06-06 10:08] VITALS: BP 129/77
--- NOTE | 2020-06-06 10:22 | NUR ---
Pain Clinic Assessment: 1. History of Osteoarthritis: Left Lower Extremity Left Upper Extremity Right Lower Extremity Right Upper Extremity History of Rheumatoid Arthritis: Not Applicable 2. Height: 5 ft. 10 in. 177.8 cm. Weight: 243.6 lb. oz. 110.496 kg. Patient's BMI: 35.0 3. Vital Signs: BP: 129/77 Pulse: 74 Resp: 18 Temp: 02 Sat: 100 ECG Mon: 4. Pain Intensity: 8-9 5. Fall Risk: Dizziness: N Needs help standing or walking: N Fallen in the last 3 months: N Fall risk comments: 6. Patient on Blood Thinner: None 7. History of Hypertension: Y 8. Opioid Therapy greater than 6 weeks: Y Opiate Contract Signed: 04/14/18 9. Risk Assessment Tool Provided: LOW 0 10. Functional Assessment Tool: 11. Recreational Drug Use: Never Drug Type: Tobacco Use: Current Every Day Smoker Tobacco Type: Cigarettes Amount or Packs/day: 4-5 CIGS How Many Years: Alcohol Use: No Frequency: Quant:
--- NOTE | 2020-06-07 12:53 | HPC ---
[facility] [address] [place] [address] PAIN MANAGEMENT CONSULTATION Name: ALEJANDRA CHAPMAN Justin [facility] [id number] Admission: 06/06/20 Attend Phys: Maria Elena Alexis Discharge: Date of : 56 Report #: [id number] THIS REPORT FOR: cc: Rafat Valente Russell J. DO Hocker, Amanda CNS ~ CC: Lucas Chapman DO DATE OF SERVICE: 06/06/2020 CHIEF COMPLAINT: Low back pain. HISTORY OF PRESENT ILLNESS: As you know, this is a 60-year-old gentleman who suffers from chronic lumbar radiculopathy symptoms as well as bilateral shoulder pain. He recently had a lumbar epidural steroid injection in early May to see if that was beneficial in reducing some of his pain. He states he had no relief from that epidural and is here today requesting an increase in his medications due to his increasing pain issues. Today, he is reporting a pain score of 8-9/10 stating it is in his low back, legs and feet. A stabbing, aching sensation that is constant, especially with any walking, standing and activities. He has been using his spinal cord stimulator 24 hours a day as well as a medication. He is actually taking a few extra pills and will be out of his medications 2 days early. The patient does report he has been having to care for his and is requiring him to be more active and lift her at times. She is recently diagnosed with pancreatic cancer this past week. He is unsure what her treatment regimens will entail since they are still in the information gathering part of her diagnosis. ALLERGIES: PENICILLIN. CURRENT LIST OF MEDICATIONS: Meloxicam 15 mg, oxycodone 10/325 up to 5 times a day, diclofenac gel, Zyrtec, Toprol, Maxzide, TriCor, Crestor, Avapro, aspirin and amlodipine. PQRS: 1. Arthritic changes in his upper and lower extremities as well as his spine. Denies rheumatoid arthritis. 2. Height is 5 feet 10 inches, weight is 243, BMI is 35. 3. Vital signs, blood pressure 129/77, pulse is 74, respirations 18, oxygen sat is 100. 4. Pain score is 8 to 9. 5. Fall risk. Denies dizziness, does not need help walking or standing, has not fallen in the last 3 months. 6. The patient is not on blood thinners, but does take medicine for hypertension. 7. Opioid therapy is greater than 6 weeks; therefore, [place] [address] PAIN MANAGEMENT CONSULTATION Name: ALEJANDRA CHAPMAN Room #: REG [facility]#: [id number] Admission: 06/06/20 Attend Phys: Maria Elena Alexis Discharge: Date of : 56 Report #: [id number] is on the chart. 8. Risk assessment is low. Functional assessment is 52/70. 9. Recreational drug use, he denies. He is a current smoker and does not drink alcohol. According to the prescription monitoring system, he last filled his medications on 05/12/2020. His morphine mEq is 75 MMEs per day. We will collect a random urine drug screen on his next visit. PHYSICAL EXAMINATION: GENERAL: This is alert and orientated, well-developed, well-nourished, exogenous obese 60-year-old gentleman who appears his stated age, placing his current pain score at 8-9/10 today. HEENT: Normocephalic, atraumatic. Pupils equal, round and reactive to light. EXTREMITIES: No clubbing, no cyanosis, no edema. MUSCULOSKELETAL: Straight leg raising is negative. Modified Gaenslen is positive for axial low back pain. Lower extremity strength is 5/5 with equal muscle tone and strength. Bilateral shoulder pain, worse with active range of motion, but is able to move extremities in all ellison. Lumbosacral pain radiating down the L4-L5 dermatomal distribution. ASSESSMENT: 1. Lumbar radiculopathy. 2. Lumbosacral spondylosis with radiculopathy. 3. 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 4. Bilateral shoulder pain. 5. Chronic intractable pain. We reviewed the fact that opiate medications are being used to provide analgesia adequate to support activities of daily living, not attempting to achieve a specific pain score on the 0-10 Visual Analog Scale. The current opiate medications are providing sufficient analgesia to allow the patient to participate in activities of daily living. The patient is not exhibiting any aberrant behavior suggestive of drug diversion. The patient is not having any adverse reactions to medications. The patient is not suffering from daytime somnolence or mental acuity changes. The patient is managing opiate-induced constipation with appropriate qqcp-fmg-xahjiur agents and dietary considerations. The patient was counseled on concern for caution with operating a motor vehicle while using opiate medications. PLAN: 1. We discussed treatment options with the patient today. I explained to the patient that he is already above what the CDC recommends for opioid use. They want us to have people on 50 morphine mEq or lower. He is at 75 morphine mEq, explained to him that therefore we need to keep him on his current level of oxycodone. The patient has not taken any of the meloxicam that I ordered for him in late April. He was unsure what that medication was for despite me [address] [place] [address] PAIN MANAGEMENT CONSULTATION Name: ALEJANDRA CHAPMAN [facility] #[facility] [id number] Admission: 06/06/20 Attend Phys: Maria Elena Alexis Discharge: Date of : 56 Report #: [id number] explaining that at his visit. I encouraged him to go home and take one dose with lunch and then start tomorrow taking 1 pill 15 mg of Mobic daily in the morning with breakfast and see if that does help releive his pain that he is experiencing, especially in his shoulders and lower back. 2. I did discuss with him the possible CT exam of his lumbar spine to see if something has changed. Therefore, he will go and visit with a surgeon again. The patient states at this time since his 's diagnosis, he is unable to schedule, thought that may be in a few weeks after he knows her treatment options and plan. He did take the prescription for the CAT scan with him. 3. We will follow up with the patient in two months or earlier as needed. We did release his one prescription 2 days early for his opioids and explained to him not to take more than the prescribed amount. The patient verbalizes understanding. The patient is seen in collaboration with Dr. Lucas Chapman. <ELECTRONICALLY SIGNED> By: Maria Elena Alexis 06/07/20 1253 1305 1526 Maria Elena Alexis /rica
== END ==
LOC: PAIN 06:51
PROVIDERS: ATTEND Clinical Nurse Specialist Adult Health
DX: M47.27 Other spondylosis with radiculopathy, lumbosacral region (principal); M19.011 Primary osteoarthritis, right shoulder; M17.0 Bilateral primary osteoarthritis of knee; M19.012 Primary osteoarthritis, left shoulder; G89.29 Other chronic pain; F11.20 Opioid dependence, uncomplicated; Z88.8 Allergy status to other drugs, medicaments and biological substances; Z79.899 Other long term (current) drug therapy

== ENCOUNTER → 2020-07-31 | Outpatient (CLI) | payer OTHER ==
[~2020-07-31] VITALS: Ht 177.8 cm; Wt 110.1 kg
[2020-07-31 09:04] VITALS: BP 110/62
--- NOTE | 2020-07-31 09:22 | NUR ---
Pain Clinic Assessment: 1. History of Osteoarthritis: Left Lower Extremity Left Upper Extremity Right Lower Extremity Right Upper Extremity History of Rheumatoid Arthritis: Not Applicable 2. Height: 5 ft. 10 in. 177.8 cm. Weight: 242.8 lb. oz. 110.134 kg. Patient's BMI: 34.8 3. Vital Signs: BP: 110/62 Pulse: 73 Resp: 22 Temp: 02 Sat: 98 ECG Mon: 4. Pain Intensity: 5-6 5. Fall Risk: Dizziness: N Needs help standing or walking: N Fallen in the last 3 months: N Fall risk comments: 6. Patient on Blood Thinner: None 7. History of Hypertension: Y 8. Opioid Therapy greater than 6 weeks: Y Opiate Contract Signed: 04/14/18 9. Risk Assessment Tool Provided: LOW 0 10. Functional Assessment Tool: 11. Recreational Drug Use: Never Drug Type: Tobacco Use: Current Every Day Smoker Tobacco Type: Cigarettes Amount or Packs/day: 3-4 cigs How Many Years: 45 Alcohol Use: No Frequency: Quant:
--- NOTE | 2020-08-01 14:31 | HPC ---
[facility] [place] [address] PAIN MANAGEMENT CONSULTATION Name: ALEJANDRA CHAPMAN [facility] #: [facility] [id number] Admission: 07/31/20 Attend Phys: Maria Elena Alexis Discharge: Date of : 56 Report #: [id number] THIS REPORT FOR: cc: Rafat Valente Russell J. DO Hocker,Maria Elena MENSAH ~ CC: Maria Elena Chapman DO DATE OF SERVICE: 07/31/2020 CHIEF COMPLAINT: Low back pain. HISTORY OF PRESENT ILLNESS: This is a 60-year-old gentleman who returns to the pain clinic today for refill of his medications. Today, he is reporting his pain slightly less than his last visit at a 5-6. The patient states he believes is due to the fact that his about 2-1/2 weeks ago from pancreatic cancer. He had been lifting and moving her for the last 2 months since her diagnosis that had aggravated his back and since he is no longer doing that strenuous activity, he feels that his pain has been improved. The patient reports that he has been going through the house with his family and cleaning things and adjusting to life without her. He finds it difficult, especially with the holidays, but he reports that he is thankful for the time he had with her. Today, the patient is reporting his pain at a scale of 5-6 in his low back, but does radiate down his legs, he believes that the epidural that he had in May was not beneficial, but now recalls taking care of his caused him to have the increased pain. At his last visit, we had discussed a CAT scan of his back to see if things have changed. He believes now he will postpone that since he is slowly feeling better. He does continue to use his spinal cord stimulator as well as his oxycodone and finds those both very beneficial in helping reduce his pain. ALLERGIES: PENICILLIN. CURRENT LIST OF MEDICATIONS: Meloxicam, oxycodone 10/325 five times a day, Voltaren gel, Zyrtec, Toprol, Maxzide, TriCor, Crestor, Avapro, aspirin and amlodipine. PQRS: 1. He has diffuse osteoarthritis of multiple joints of his upper and lower extremities as well as his spine. Denies rheumatoid arthritis. 2. Height is 5 feet 10 inches, weight is 242, BMI is 34. 3. Vital signs 110/62, pulse is 73, respirations 22, oxygen sat is 98%. 4. Pain score is 5-6[place] [address] PAIN MANAGEMENT CONSULTATION Name: ALEJANDRA CHAPMAN Room #: REG CL Gabe#: [id number] Admission: 07/31/20 Attend Phys: Maria Elena Alexis Discharge: Date of : 56 Report #: [id number] 5. Denies dizziness, does not need help walking or standing, has not fallen in the last 3 months. 6. The patient is not on any blood thinners, but does have history of hypertension. 7. Opioid therapy is greater than 6 weeks; therefore, an opioid signed contract is on the chart. Risk assessment is low. Functional assessment is 52/70. 8. Recreational drug use, he denies. He is a current smoker of 3-4 cigarettes a day and denies any alcohol use. According to the prescription monitoring system, the patient is due to fill his medications at the end of this week, filling them appropriately. His morphine mEq is 75 MME per day. We will collect a random drug screen on him today. PHYSICAL EXAMINATION: GENERAL: This is alert and orientated, well-developed, well-nourished, slightly obese 60-year-old who appears his stated age, placing his current pain score at 5-6 today. HEENT: Normocephalic, atraumatic. Extraocular eye muscles are intact. Wearing a mask. EXTREMITIES: No clubbing, no cyanosis, no edema. MUSCULOSKELETAL: Lower extremity strength is symmetrical and muscle tone is equal in comparing the left lower extremity to the right. Seated to straight leg raising is negative. Modified Gaenslen is positive for axial low back pain. Lumbosacral pain radiates down his L4-L5 dermatomal distribution. Bilateral shoulder pain, worse with active range of motion. ASSESSMENT: 1. Lumbar radiculopathy. 2. Lumbosacral spondylosis with radiculopathy. 3. 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 4. Bilateral shoulder pain. 5. Chronic intractable pain. We reviewed the fact that opiate medications are being used to provide analgesia adequate to support activities of daily living, not attempting to achieve a specific pain score on the 0-10 Visual Analog Scale. The current opiate medications are providing sufficient analgesia to allow the patient to participate in activities of daily living. The patient is not exhibiting any aberrant behavior suggestive of drug diversion. The patient is not having any adverse reactions to medications. The patient is not suffering from daytime somnolence or mental acuity changes. The patient is managing opiate-induced constipation with appropriate lhar-hjx-aeziamh agents and dietary considerations. The patient was counseled on concern for caution with operating a motor vehicle while using opiate medications. PLAN: [address] [address] PAIN MANAGEMENT CONSULTATION Name: ALEJANDRA CHAPMAN [facility] [id number] Admission: 07/31/20 Attend Phys: Maria Elena Alexis Discharge: Date of : 56 Report #: [id number] 1. We discussed treatment options with the patient today. He feels that since his has , he is not doing the heavy lifting that he had when caring for her and feels like his back pain has decreased slightly. We will hold off on the CT scan. He does continue to find his oxycodone and spinal cord stimulator are very beneficial and would like refills of that medication sent today. We did discuss lowest most effective dose, if he is able to get by with less tablet since he is not caring for her. He will try to do that and we may adjust at his next visit. Scripts will be sent electronically by Dr. Chapman for oxycodone , #150 to release 08/03, 09/01 and 09/28. 2. The patient has asked for a disability placard permanent status. I explained to him that we do not do permanent disability. We will write a temporary placard for him and encourage him to be as active as possible and still trying to walk. Dr. Lucas Chapman had done this at [place] [facility] for him last year. 3. We will collect a random drug screen on this patient today. He states taking his medication today. The patient is seen today in collaboration with Dr. Lucas Chapman who did see him as well. <ELECTRONICALLY SIGNED> By: Maria Elena Alexis 08/01/20 [id number] 19 Maria Elena Alexis /rica
== END ==
LOC: PAIN 06:52
PROVIDERS: ATTEND Clinical Nurse Specialist Adult Health
DX: M47.27 Other spondylosis with radiculopathy, lumbosacral region (principal); M19.012 Primary osteoarthritis, left shoulder; M19.011 Primary osteoarthritis, right shoulder; M17.0 Bilateral primary osteoarthritis of knee; Z79.899 Other long term (current) drug therapy

== ENCOUNTER → 2020-09-18 | Outpatient (CLI) | payer OTHER ==
[~2020-09-18] VITALS: Ht 177.8 cm; Wt 113.4 kg
[2020-09-18 10:29] VITALS: BP 105/69
--- NOTE | 2020-09-18 10:41 | NUR ---
Pain Clinic Assessment: 1. History of Osteoarthritis: Left Lower Extremity Left Upper Extremity Right Lower Extremity Right Upper Extremity History of Rheumatoid Arthritis: Not Applicable 2. Height: 5 ft. 10 in. 177.8 cm. Weight: 250.0 lb. oz. 113.400 kg. Patient's BMI: 35.9 3. Vital Signs: BP: 105/69 Pulse: 58 Resp: 20 Temp: 02 Sat: 100 ECG Mon: 4. Pain Intensity: 5-6 5. Fall Risk: Dizziness: N Needs help standing or walking: N Fallen in the last 3 months: N Fall risk comments: 6. Patient on Blood Thinner: None 7. History of Hypertension: Y 8. Opioid Therapy greater than 6 weeks: Y Opiate Contract Signed: 04/14/18 9. Risk Assessment Tool Provided: LOW 0 10. Functional Assessment Tool: 11. Recreational Drug Use: Never Drug Type: Tobacco Use: Current Every Day Smoker Tobacco Type: Amount or Packs/day: 4-5 CIG /DAY How Many Years: 45 Alcohol Use: No Frequency: Quant:
--- NOTE | 2020-09-19 12:07 | HPC ---
[facility] [place] [address] PAIN MANAGEMENT CONSULTATION Name: ALEJANDRA SURESH Room #: REG [facility].#: [id number] Admission: 09/18/20 Attend Phys: Lucas Suresh DO Discharge: Date of : 56 Report #: [id number] THIS REPORT FOR: cc: Rafat Valente Russell J. DO Johnson, James E. DO ~ DATE OF SERVICE: 09/18/2020 REFERRING PHYSICIAN: Rafat Valente DO CHIEF COMPLAINT: Bilateral shoulder pain. HISTORY OF PRESENT ILLNESS: As you know, the patient is a 60-year-old male with longstanding history of bilateral shoulder pain due to progressively worsening osteoarthritic changes and labral injuries. He has done very well with previous intra-articular shoulder injections, returning today in followup visit requesting to undergo these injections again to address his pain that he is now placing at 5-6/10. Pain is exacerbated with using his upper extremities or trying to bend his arms. He is very pleased with response to the previous injections, which according to the patient gave excellent improvement up to 70% improvement in overall pain until just recently where his symptoms reoccurred. He returns for bilateral shoulder intra-articular injections under fluoroscopic guidance. ALLERGIES: PENICILLIN. CURRENT MEDICATIONS: Meloxicam, oxycodone, Voltaren gel, Zyrtec, Toprol, Maxzide, TriCor, Crestor, Avapro, aspirin and amlodipine. SOCIAL HISTORY: The patient continues to smoke. Denies IV or illicit drug use. Denies any chronic alcohol use. He is unaccompanied at today's visit. IMAGING: No new imaging available. PQRS: The patient has known arthritic changes of the cervical spine, bilateral shoulders and lumbar spine. No rheumatoid arthritis. He is placing current pain score 5-6/10. He is not a fall risk, has not had a fall in last 3 months. He is not on blood thinners, but is treated for hypertension. He is on chronic opioids, has a low opiate addiction potential and he is under contract with [facility] for those medications. Functional assessment pain impact score 52/70, severe interference of daily activities secondary to pain. PHYSICAL EXAMINATION: VITAL SIGNS: Blood pressure 105/69, pulse 8, respiratory rate 20 and unlabored. The patient is 100% on room air. Height 5 feet 10 inches tall, weight 250 pounds, BMI calculated 35.9[place] [address] PAIN MANAGEMENT CONSULTATION Name: ADELAALEJANDRA Room #: REG CLI [facility]#: [id number] Admission: 09/18/20 Attend Phys: Lucas Suresh DO Discharge: Date of : 56 Report #: [id number] GENERAL: Well-developed, well-nourished, well-hydrated 60-year-old male, appears stated age. He is placing current pain score at 5-6/10. HEENT: Normocephalic, atraumatic. Pupils equal, round and reactive. EXTREMITIES: Show no clubbing, no cyanosis. No appreciable edema. MUSCULOSKELETAL: Upper extremity strength appears symmetrical 5/5. Slight giveaway strength noted with active and passive range of motion of the shoulders due to increasing pain. There is mild crepitus noted with right shoulder movement. This is not noted on the left. ASSESSMENT: 1. Severe osteoarthritic changes of the bilateral shoulders. 2. Bilateral shoulder pain secondary to rotator cuff injuries. 3. Chronic bilateral shoulder pain. PLAN: 1. The patient returns today in followup visit requesting to undergo bilateral intra-articular shoulder injections under fluoroscopic guidance. The patient has done very well with previous injections and is hopeful to see similar improvement today. He denies injury or trauma that may have led to symptom reoccurrence. He is very pleased with response to previous injections, which were provided nearly 1 year ago. He has been doing well until just recently. He returns for the next in the series of injections. The patient has been advised risks and benefits of bilateral intra-articular shoulder injections. These risks include, but are not necessarily limited to bleeding, bruising, infection, worsening pain, no relief of pain, also risk of temporary or permanent muscle weakness, temporary or permanent nerve damage, possible joint destruction or . The patient states understood and wished to proceed. 2. No medication changes made at today's visit. The patient will continue current medical therapy as prior prescribed. 3. We will see the patient back in followup visit on an as needed basis for possible repeat intra-articular shoulder injections or to address his chronic lumbar radiculopathy. He does have an established appointment for refill of medications with our nurse practitioner. PROCEDURE NOTE DESCRIPTION OF PROCEDURE: Bilateral intra-articular shoulder injections under fluoroscopic guidance. After obtaining written consent, the patient was taken back to fluoroscopy suite, placed in a supine position. The image intensifier was then brought into position over the left shoulder and AP imaging was obtained. The area was then prepped and draped in aseptic fashion using chlorhexidine. A sterile marker was then used to andres the area of the injection. A 27-gauge 1-1/4 inch needle was then used to anesthetize skin and subcutaneous tissue with 2 mL of 1% [address] [address] PAIN MANAGEMENT CONSULTATION Name: ALEJANDRA SURESH [facility] [id number] Admission: 09/18/20 Attend Phys: Lucas Suresh DO Discharge: Date of : 56 Report #: [id number] preservative-free lidocaine. A 25-gauge 2-inch needle was then advanced into the left shoulder under direct visualization with fluoroscopy. Needle was advanced until reaching the proximal head of the humerus. Needle was then retracted approximately 1 mm and aspiration noted to be negative for heme. After negative aspiration for heme, 0.4 mL of Omnipaque injected, demonstrating excellent left shoulder arthrogram. After negative aspiration for heme, 3 mL of a solution containing 1 mL 40 mg per mL, 40 mg total triamcinolone along with 2 mL bupivacaine 0.5% injected slowly. Needle retracted custodial, flushed with 1 mL of 1% lidocaine, then removed. Sterile bandage placed over injection site. Our attention was then directed to the right side. The fluoroscopic imaging device was then brought into position over the right shoulder and AP imaging was obtained. The area was then prepped and draped in aseptic fashion using chlorhexidine. A sterile marker was then used to andres the injection site. A 27-gauge 1-1/4 inch needle was then used to anesthetize skin and subcutaneous tissue with 2 mL of 1% preservative-free lidocaine. A 25-gauge 2-inch needle was advanced under fluoroscopic guidance into the right shoulder under direct visualization. Needle was advanced until reaching the proximal head of the humerus. Needle was then retracted approximately 1 mm and aspiration was noted to be negative for heme. After negative aspiration for heme, 0.2 mL of Omnipaque injected, demonstrating excellent right shoulder arthrogram. After negative aspiration for heme, 3 mL of a solution containing 1 mL 40 mg per mL, 40 mg total triamcinolone along with 2 mL of bupivacaine 0.5% was injected slowly. Needle retracted custodial, flushed with 1 mL of 1% lidocaine and then removed. Sterile bandage placed over injection site. The patient tolerated the procedure well, carefully escorted to recovery room in stable condition. No apparent complications. After meeting discharge criteria, the patient discharged home. <ELECTRONICALLY SIGNED> By: Lucas Suresh DO 09/19/20 1207 [id number] Lucas Suresh DO /nt
== END | disposition home or self-care (01) ==
LOC: PAIN 06:53
PROVIDERS: ATTEND Anesthesiology Pain Medicine
DX: M19.011 Primary osteoarthritis, right shoulder (principal); M19.012 Primary osteoarthritis, left shoulder; M25.511 Pain in right shoulder; M25.512 Pain in left shoulder; G89.29 Other chronic pain; I10 Essential (primary) hypertension; M19.90 Unspecified osteoarthritis, unspecified site; Z98.890 Other specified postprocedural states; Z79.899 Other long term (current) drug therapy; Z79.891 Long term (current) use of opiate analgesic

== ENCOUNTER → 2020-10-24 | Outpatient (CLI) | payer OTHER ==
[~2020-10-24] VITALS: Ht 177.8 cm; Wt 112.4 kg
[2020-10-24 09:52] VITALS: BP 128/86
--- NOTE | 2020-10-24 10:12 | NUR ---
Pain Clinic Assessment: 1. History of Osteoarthritis: Left Lower Extremity Left Upper Extremity Right Lower Extremity Right Upper Extremity History of Rheumatoid Arthritis: Not Applicable 2. Height: 5 ft. 10 in. 177.8 cm. Weight: 247.8 lb. oz. 112.402 kg. Patient's BMI: 35.6 3. Vital Signs: BP: 128/86 Pulse: 71 Resp: 18 Temp: 02 Sat: 100 ECG Mon: 4. Pain Intensity: 5-9(before med) 5. Fall Risk: Dizziness: N Needs help standing or walking: N Fallen in the last 3 months: Y Fall risk comments: 6. Patient on Blood Thinner: None 7. History of Hypertension: Y 8. Opioid Therapy greater than 6 weeks: Y Opiate Contract Signed: 04/14/18 9. Risk Assessment Tool Provided: LOW 0 10. Functional Assessment Tool: / 11. Recreational Drug Use: Never Drug Type: Tobacco Use: Current Every Day Smoker Tobacco Type: Cigarettes Amount or Packs/day: 5/day How Many Years: Alcohol Use: No Frequency: Quant:
== END ==
LOC: PAIN 07:05
PROVIDERS: ATTEND Clinical Nurse Specialist Adult Health
DX: M19.011 Primary osteoarthritis, right shoulder (principal); M19.012 Primary osteoarthritis, left shoulder; M54.5 Low back pain; F11.20 Opioid dependence, uncomplicated; Z88.8 Allergy status to other drugs, medicaments and biological substances; Z79.899 Other long term (current) drug therapy

== ENCOUNTER → 2021-01-02 | Outpatient (CLI) | payer OTHER ==
[~2021-01-02] VITALS: Ht 177.8 cm; Wt 114.9 kg
[2021-01-02 09:45] VITALS: BP 110/69
--- NOTE | 2021-01-02 09:56 | NUR ---
Pain Clinic Assessment: 1. History of Osteoarthritis: Left Lower Extremity Left Upper Extremity Right Lower Extremity Right Upper Extremity cervical spine, lumbar spine History of Rheumatoid Arthritis: Not Applicable 2. Height: 5 ft. 10 in. 177.8 cm. Weight: 253.2 lb. oz. 114.851 kg. Patient's BMI: 36.3 3. Vital Signs: BP: 110/69 Pulse: 60 Resp: 18 Temp: 02 Sat: 100 ECG Mon: 4. Pain Intensity: 5-6 5. Fall Risk: Dizziness: N Needs help standing or walking: N Fallen in the last 3 months: Y Fall risk comments: 6. Patient on Blood Thinner: None 7. History of Hypertension: Y 8. Opioid Therapy greater than 6 weeks: Y Opiate Contract Signed: 04/14/18 9. Risk Assessment Tool Provided: LOW 0 10. Functional Assessment Tool: 52/ 11. Recreational Drug Use: Never Drug Type: Tobacco Use: Current Every Day Smoker Tobacco Type: Cigarettes Amount or Packs/day: How Many Years: Alcohol Use: No Frequency: Quant:
--- NOTE | 2021-01-08 11:27 | HPC ---
[facility] [place] [place] [address] PAIN MANAGEMENT CONSULTATION Name: ALEJANDRA CHAPMAN Justin [id number] Admission: 01/02/21 Attend Phys: Lucas Chapman DO Discharge: Date of : 56 Report #: [id number] THIS REPORT FOR: cc: Rafat Valente Russell J. DO Johnson, James E. DO DOC #: [id number] cc: DO Lucas Lauren DO DATE OF SERVICE: 01/02/2021 CHIEF COMPLAINT: Bilateral shoulder pain. HISTORY OF PRESENT ILLNESS: As you know, the patient is a very pleasant 60-year-old male returning in followup visit to undergo bilateral intra-articular shoulder injections under fluoroscopic guidance. He reports previous shoulder injections provided through our services gave 90% improvement in overall pain lasting until just recently. Unfortunately, his bilateral shoulder pain has returned. He was returning today to undergo bilateral intra-articular shoulder injections to address 5-6/10 pain. The patient denies injury or trauma that may have led to symptom reoccurrence. ALLERGIES: PENICILLIN. CURRENT MEDICATIONS: Meloxicam, oxycodone, Voltaren gel, Zyrtec, Toprol, Maxzide, TriCor, Crestor, Avapro, aspirin and amlodipine. SOCIAL HISTORY: The patient continues to smoke. Denies IV or illicit drug use. Denies chronic alcohol use. He is unaccompanied today. IMAGING: No new imaging available. PQRS: The patient has known arthritic changes of the cervical spine, bilateral shoulders, lumbar spine, bilateral hips and knees. No rheumatoid arthritis. He was placing current pain score 5-6/10. He is not a fall risk, but did have a fall within the last three months, apparently tripping over objects at home. This has now been rectified by removing those objects from the area. He is not on blood thinners. He is treated for hypertension. He is on chronic opioids. He has a little abuse potential based on his assessment tool. Pain impact is 52-70 severe interference of daily activities secondary to pain. PHYSICAL EXAMINATION: VITAL SIGNS: Blood pressure 110/69, pulse 60, respiratory rate 18 and unlabored. The patient 100% on room air. Height 5 feet 10 inches tall, weight 253.2 pounds, BMI calculated 36.3. GENERAL: Well-developed, well-nourished, well-hydrated exogenously obese [facility] [address] [place] [address] PAIN MANAGEMENT CONSULTATION Name: ALEJANDRA CHAPMAN Room #: REG [facility]#: [id number] Admission: 01/02/21 Attend Phys: Lucas Chapman DO Discharge: Date of : 56 Report #: [id number] 60-year-old male, appearing stated age. Pain is rated at 5-6/10. HEENT: Normocephalic, atraumatic. Pupils equal, round and reactive. The patient is wearing a mask in compliance with COVID-19 regulations. EXTREMITIES: Show no clubbing, no cyanosis. No appreciable edema. MUSCULOSKELETAL: Palpatory tenderness is once again noted over the anterior and posterior shoulders bilaterally, left greater than right. Active and passive range of motion of the bilateral shoulders symmetrically increasing pain. There is no significant crepitus with movement, except on the right, which is minimal. ASSESSMENT: 1. Bilateral shoulder pain. 2. Osteoarthritis of the bilateral shoulders. 3. Chronic intractable pain. PLAN: 1. The patient returns today in followup visit to undergo bilateral intra-articular shoulder injections under fluoroscopic guidance. He has done very well with previous injections, hopeful to see similar improvement today. The patient has been advised the risks and benefits of the procedure. These risks include but are not necessarily limited to bleeding, bruising, infection, worsening pain, no relief of pain, also risk of temporary or permanent, muscle weakness, temporary or permanent nerve damage, possible paralysis, allergic reaction of medication and . The patient states understood and wished to proceed. 2. No medication changes made at today's visit. The patient will continue current medical therapy as prior prescribed. 3. We will plan to see the patient back in followup visit on an as needed basis for intra-articular shoulder injections. We are hopeful the patient will see good and prolonged benefit with today's intra-articular shoulder injections. PROCEDURE NOTE DESCRIPTION OF PROCEDURE: Bilateral intra-articular shoulder injections under fluoroscopic guidance. After obtaining written consent, the patient was taken back to fluoroscopy suite, placed in a supine position. Image intensifier was then brought into position over the left shoulder and AP imaging obtained. The area was then prepped and draped in aseptic fashion using chlorhexidine. A sterile marker was used then to andres the area prior to the injection. A 27-gauge 1-1/4 inch needle was then used to anesthetize skin and subcutaneous tissue with 2 mL of 1% preservative-free lidocaine. A 25-gauge 2-inch needle was then advanced into the left shoulder under direct visualization with fluoroscopy. Needle was advanced until it was touching the proximal head of the humerus. Needle was retracted approximately [address] [address] PAIN MANAGEMENT CONSULTATION Name: ALEJANDRA CHAPMAN Room #: REG CLI [facility]#: [id number] Admission: 01/02/21 Attend Phys: Lucas Chapman DO Discharge: Date of : 56 Report #: [id number] Aspiration was noted to be negative for heme. After negative aspiration for heme 0.3 mL of Omnipaque injected, demonstrating excellent left shoulder arthrogram. After negative aspiration for heme, 3 mL of a solution containing 1 mL 40 mg per mL, 40 mg total triamcinolone, 2 mL of bupivacaine 0.5% was injected slowly. Needle retracted residential flushed with 1 mL of 1% lidocaine and then removed and a sterile bandage was placed over injection site. My attention was then directed to the right side. Fluoroscopic imaging was obtained of the right shoulder in an AP fashion. The area was then prepped and draped in aseptic fashion using chlorhexidine. A sterile marker was then placed over the injection site and a 27-gauge 1-1/4-inch needle was then used to anesthetize skin and subcutaneous tissue with 3 mL of 1% lidocaine. A 25-gauge 2-inch needle was then advanced under fluoroscopic guidance towards the right shoulder under direct visualization. Needle was advanced until reaching the proximal head of the humerus. Needle was then retracted 1 mm and aspiration was noted to be negative for heme. After negative aspiration for heme, 0.3 mL of Omnipaque injected, demonstrating an excellent right shoulder arthrogram. After negative aspiration for heme, 3 mL of a solution containing 1 mL 40 mg per mL, 40 mg total triamcinolone along with 2 mL of bupivacaine 0.5% injected slowly. Needle retracted residential flushed with 1 mL of 1% lidocaine and then removed. Sterile bandage was placed over injection site. No new motor deficits present in the upper extremities following the procedure. The patient tolerated the procedure well. Carefully escorted to recovery room in stable condition. No apparent complications. After meeting discharge criteria, the patient discharged home. DO HOWARD Rollins/ZAIN/MELY <ELECTRONICALLY SIGNED> By: Lucas Chapman DO 01/08/21 1127 [id number] Lucas Chapman DO /nt
== END | disposition home or self-care (01) ==
LOC: PAIN 09:20
PROVIDERS: ATTEND Anesthesiology Pain Medicine
DX: M25.511 Pain in right shoulder (principal); M25.512 Pain in left shoulder; M19.011 Primary osteoarthritis, right shoulder; M19.012 Primary osteoarthritis, left shoulder; G89.29 Other chronic pain; I10 Essential (primary) hypertension; M19.90 Unspecified osteoarthritis, unspecified site; F17.210 Nicotine dependence, cigarettes, uncomplicated; Z98.890 Other specified postprocedural states; Z79.899 Other long term (current) drug therapy; Z88.0 Allergy status to penicillin

== ENCOUNTER → 2021-01-23 | Outpatient (CLI) | payer OTHER ==
[~2021-01-23] VITALS: Ht 177.8 cm; Wt 114.1 kg
[2021-01-23 10:00] VITALS: BP 111/68
--- NOTE | 2021-01-23 10:13 | NUR ---
Pain Clinic Assessment: 1. History of Osteoarthritis: Left Lower Extremity Left Upper Extremity Right Lower Extremity Right Upper Extremity cervical spine, lumbar spine History of Rheumatoid Arthritis: Not Applicable 2. Height: 5 ft. 10 in. 177.8 cm. Weight: 251.6 lb. oz. 114.125 kg. Patient's BMI: 36.1 3. Vital Signs: BP: 111/68 Pulse: 63 Resp: 16 Temp: 02 Sat: 97 ECG Mon: 4. Pain Intensity: 6 5. Fall Risk: Dizziness: N Needs help standing or walking: N Fallen in the last 3 months: N Fall risk comments: 6. Patient on Blood Thinner: None 7. History of Hypertension: Y 8. Opioid Therapy greater than 6 weeks: Y Opiate Contract Signed: 04/14/18 9. Risk Assessment Tool Provided: LOW 0 10. Functional Assessment Tool: 11. Recreational Drug Use: Never Drug Type: Tobacco Use: Current Every Day Smoker Tobacco Type: Cigarettes Amount or Packs/day: .05 How Many Years: 45 Alcohol Use: No Frequency: Quant:
--- NOTE | 2021-01-24 09:40 | HPC ---
[facility] [place] [address] PAIN MANAGEMENT CONSULTATION Name: ALEJANDRA CHAPMAN [id number] Admission: 01/23/21 Attend Phys: Maria Elena Alexis Discharge: Date of : 56 Report #: [id number] THIS REPORT FOR: cc: Rafat Valente Russell J. DO Hocker, Amanda CNS ~ DOC #: [id number] cc: Lucas Chapman DO DATE OF SERVICE: 01/23/2021 CHIEF COMPLAINT: Bilateral shoulder pain and low back pain. HISTORY OF PRESENT ILLNESS: This is a pleasant 60-year-old gentleman who returns to the pain clinic today to renew his medications. Today, he is reporting a pain score of 6/10, mostly located in his low back. He is describing it as an achy tenderness sensation that is worse with any activity, prolonged lifting and standing. He does believe that his spinal cord stimulator and his medications are beneficial in helping reduce his pain. He denies any constipation issues. He does report he does have some somnolence, if he sits still too long, but is unsure if it is related to his opioid medication. The patient does report good relief and benefit from the bilateral shoulder injections that Dr. Lucas Chapman performed in December. He reports a 90% efficacy in reducing his pain from these injections and feels that it continues to be as beneficial now as it was a month ago. He is hopeful that he does not need to repeat these injections for another 4-6 months. ALLERGIES: PENICILLIN. CURRENT LIST OF MEDICATIONS: Meloxicam, oxycodone 10/325 up to five times a day, Voltaren gel, Zyrtec, metoprolol, Maxzide, TriCor, Crestor, Avapro, aspirin, and amlodipine. PATIENT'S PQRS: 1. He has known arthritic changes in his cervical spine, bilateral shoulders, lumbar spine, bilateral hips and knees. Denies any rheumatoid arthritis. 2. Height is 5 feet 10 inches, weight is 251. BMI is 36. 3. Vital signs: BP 111/68, pulse is 63, respirations 16, and oxygen sat is 97%. 4. Pain score 6/10. 5. Denies dizziness. Does not need help walking or standing, has not fallen in the last 3 months. 6. The patient is not on any blood thinners, but does take medicine for hypertension. 7. Opioid therapy is greater than 6 weeks; therefore, an opioid signed contract is on the chart. Risk assessment is low. Functional assessment: . [address] [address] PAIN MANAGEMENT CONSULTATION Name: ADELAALEJANDRA Justin Room #: REG [facility] Gabe#: [id number] Admission: 01/23/21 Attend Phys: Maria Elena Alexis Discharge: Date of : 56 Report #: [id number] 8. Recreational drug use: He denies. He currently smokes about a half a pack a day and does not drink alcohol. According to the prescription monitoring system, he is filling appropriately in a timely fashion. His morphine mEq is 75 MMEs. He is seen in our clinic every 3 months for opioid medication management. There is a urine drug screen on the chart that is appropriate as well. PHYSICAL EXAMINATION: GENERAL: This is a well-developed, well-nourished, well-hydrated, exogenous obese 60-year-old gentleman, who is rating his pain score today at 6/10. HEENT: Normocephalic, atraumatic. Extraocular eye muscles are intact. He is wearing a mask. EXTREMITIES: No clubbing, no cyanosis, no edema. MUSCULOSKELETAL: Active and passive range of motion is bilateral shoulders to increased pain greater on the left than the right. No crepitus is noted. Tenderness in his lumbosacral region with no radicular symptoms today. Lower extremity strength is symmetrical at 5/5 as well as upper extremity strength. He does have a spinal cord stimulator battery in place in his buttock. ASSESSMENT AND PLAN: 1. Bilateral shoulder pain. 2. 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 3. Chronic intractable pain. 4. Low back pain. 5. Opioid medication management utilizing scheduled opioid medications. We reviewed the fact that opiate medications are being used to provide analgesia adequate to support activities of daily living, not attempting to achieve a specific pain score on the 0-10 Visual Analog Scale. The current opiate medications are providing sufficient analgesia to allow the patient to participate in activities of daily living. The patient is not exhibiting any aberrant behavior suggestive of drug diversion. The patient is not having any adverse reactions to medications. The patient is not suffering from daytime somnolence or mental acuity changes. The patient is managing opiate-induced constipation with appropriate [id number] agents and dietary considerations. The patient was counseled on concern for caution with operating a motor vehicle while using opiate medications. A physical exam was performed and the patient's functional status was evaluated. All patients with back pain were advised against the bed rest greater than 4 days and were advised to return to normal activities. Pain score assessment was noted and the treatment plan was reviewed with the patient. All current medications, both prescribed and OTC were reviewed and reconciled on the electronic medical record. Tobacco screening was accomplished and smoking cessation was advised when indicated. BMI was noted and diet/exercise [address] [place] [address] PAIN MANAGEMENT CONSULTATION Name: ADELAALEJANDRA Justin [facility] [id number] Admission: 01/23/21 Attend Phys: Maria Elena RODRICK Alexis Discharge: Date of : 56 Report #: [id number] modification was recommended for all patients following outside normal parameters. I reviewed with the patient today their responsibilities to safeguard prescription medications, reviewed their responsibility to utilize medications only as prescribed by the physician. They are to seek and receive pain medications only from 1 physician group ( [facility]). They are to use 1 pharmacy and keep the clinic informed if they change pharmacies. Their responsibilities include making followup visits in a timely fashion and to avoid abrupt discontinuation of medication usage. Their responsibilities further include bringing their medications (bottles from the pharmacy with residual pills) to the visit for possible confirmation of pill counts and the patient understands it is their responsibility to submit to random drug screens to ensure both that the medications prescribed are present, and that no other controlled substances are present. All prescriptions provided today were generated electronically. PLAN: 1. We discussed treatment options with the patient today. The patient would like a renewal of his oxycodone, which we will have Dr. Lucas Chapman send 3 months of this medication. He did report some somnolence if sitting too long. I did discuss possible decreasing his medications. To help prevent this, the patient then reported he does not believe it is related to his opioid use, but due to inactivity, I encouraged him to try and take less medication and see if he notices a change. Otherwise, scripts will be sent for 3 months. 2. The patient did request a letter from Dr. Chapman to relieve him from jury duty. I reminded him that there is importance of the duty to be called as jury, if he is able. They can make arrangements, so he can stand for part of his time if he is actually chosen to sit on a jury. 3. We did discuss his Voltaren gel, which he finds beneficial for his shoulders to comfort and we will renew this medication as well today. 4. Patient has had both his COVID vaccinations. Time spent with the patient in consultation, reviewing pertinent studies and clinical notes and physician reports, physical examination and correlation of findings and medical documentation to determine possible treatment options 15 minutes. Time spent in preparation for appointment reviewing prescription monitoring reports, reviewing previous records and proposed treatment options, reviewing current medications 5 minutes. Time spent in preparing and sending electronic prescriptions with Dr. Lucas Chapman, who is my collaborating physician as well as documentation of visit and plan of treatment 5 minutes. Total time spent 25 minutes. Maria Elena Alexis NP /[place] [address] PAIN MANAGEMENT CONSULTATION Name: ALEJANDRA CHAPMAN Room #: REG CLI Gabe#: [id number] Admission: 01/23/21 Attend Phys: Maria Elena Alexis Discharge: Date of : 56 Report #: [id number] <ELECTRONICALLY SIGNED> By: Maria Elena Alexis 01/24/21 0940 [id number] Maria Elena Alexis /nt
== END ==
LOC: PAIN 09:43
PROVIDERS: ATTEND Clinical Nurse Specialist Adult Health
DX: M19.011 Primary osteoarthritis, right shoulder (principal); M19.012 Primary osteoarthritis, left shoulder; G89.29 Other chronic pain; F11.20 Opioid dependence, uncomplicated; Z88.8 Allergy status to other drugs, medicaments and biological substances

== ENCOUNTER → 2021-03-13 | Outpatient (CLI) | payer OTHER ==
[~2021-03-13] VITALS: Ht 177.8 cm; Wt 116.6 kg
--- NOTE | ~2021-03-13 | HPC ---
[facility] [place] [address] PAIN MANAGEMENT CONSULTATION Name: ADELAALEJANDRA [id number] Admission: 03/13/21 Attend Phys: Lucas Chapman DO Discharge: Date of : 56 Report #: [id number] THIS REPORT FOR: cc: Rafat Valente Russell J. DO Johnson, James E. DO ~ DOC #: [id number] cc: DO Lucas Lauren DO DATE OF SERVICE: 03/13/2021 CHIEF COMPLAINT: Bilateral shoulder pain. HISTORY OF PRESENT ILLNESS: As you know, the patient is a very pleasant 61-year-old male returning in followup visit to undergo bilateral intraarticular shoulder injections under fluoroscopic guidance. A most recent injections provided in our visit of 01/02/2021 was met with excellent benefit. The patient reports about 80% improvement in overall pain lasting until just recently. Unfortunately, his symptoms have reoccurred. He states he notices pain returned slowly, usually controlled with [id number] Voltaren topical agent, but as his pain intensifies, the Voltaren agent becomes less effective. He made today's appointment to undergo bilateral intraarticular shoulder injections in hopes of improving pain. He places pain today at a level of 8/10. Pain is exacerbated with activity, lifting, standing and walking, improves with medications and injections. He returns today for bilateral shoulder injections under fluoroscopic guidance. ALLERGIES: PENICILLIN. CURRENT MEDICATIONS: See chart. SOCIAL HISTORY: The patient reports he continues to smoke about a half pack tobacco per day, has done so for greater than 45 years. Denies IV or illicit drug use. Denies any chronic alcohol use. He is unaccompanied at today's visit. IMAGING: No new imaging available. PQRS: The patient has known arthritic changes of the cervical spine, bilateral shoulders, lumbar spine, bilateral hips and knees. No rheumatoid arthritis. Pain intensity today is rated at 8/10. He is not a fall risk, has not had a fall in last 3 months. He is on blood thinners, but history of hypertension. He is on chronic opioids, has a low opioid addiction potential despite the fact that he continues to smoke. Based on our assessment tool, pain impact is 52/70, severe interference of daily activities secondary to pain. [address] [address] PAIN MANAGEMENT CONSULTATION Name: ALEJANDRA CHAPMAN Room #: REG CL Gabe#: [id number] Admission: 03/13/21 Attend Phys: Lucas Chapman DO Discharge: Date of : 56 Report #: [id number] PHYSICAL EXAMINATION: VITAL SIGNS: Blood pressure 110/66, pulse is 62, respiratory rate 16 and unlabored. The patient 97% on room air. Height 5 feet 10 inches tall, weight 257 pounds, BMI calculated 36.9. GENERAL: Well-developed, well-nourished, well-hydrated 61-year-old male, appears stated age, pain is rated today around 8/10. HEENT: Normocephalic, atraumatic. Pupils are round and responsive. He is wearing corrective eyewear. He is also wearing a mask in compliance with COVID-19 regulations. EXTREMITIES: Show no clubbing, no cyanosis. No appreciable edema. MUSCULOSKELETAL: Active and passive range of motion of the bilateral shoulders met with increasing pain and significant restriction of motion. Well-healed surgical scars over both shoulders consistent with the patient's history. Upper extremity strength is symmetrical 5/5 with giveaway strength noted with biceps flexion due to pain increase in the shoulders. ASSESSMENT: 1. Bilateral shoulder pain. 2. Osteoarthritis of the bilateral shoulders. 3. Chronic intractable pain. PLAN: 1. The patient returns today in followup visit requesting bilateral intraarticular shoulder injections under fluoroscopic guidance. Most recent provided in December gave 80% improvement in overall pain. Unfortunately, the patient's symptoms have reoccurred. He is now placing pain score at 8/10. He requests bilateral intraarticular shoulder injections today in hopes of improving pain. The patient recently returned from a trip to the [facility] to see his son who apparently is now moving to the [facility] and he has plans to visit them over the next couple of weeks. He is hopeful to optimize his pain control prior to that trip. He has been advised risks and benefits of the procedure, states understood and wished to proceed. 2. No medication changes made at today's visit. The patient will continue current medical therapy as prior prescribed. 3. We plan to see the patient back in followup visit on an as needed basis for intraarticular shoulder injections. We wish him well with his trip and we will see him back in followup visit on an as needed basis. PROCEDURE NOTE DESCRIPTION OF PROCEDURE: Bilateral intraarticular shoulder injections under fluoroscopic guidance. After obtaining written consent, the patient was taken back to fluoroscopy suite, placed in a supine position. The image intensifier (C-arm) was then brought into position over the left shoulder and AP imaging was obtained. The [address] [address] PAIN MANAGEMENT CONSULTATION Name: ALEJANDRA CHAPMAN Room #: REG CLI Gabe#: [id number] Admission: 03/13/21 Attend Phys: Lucas CruzJim AdelaDO Discharge: Date of : 56 Report #: [id number] area of the left shoulder was prepped and draped in aseptic fashion using chlorhexidine. A 27-gauge 1-1/4 inch needle was then used to anesthetize skin and subcutaneous tissue with 1 mL preservative free 1% lidocaine. A 27-gauge 1-1/4 inch needle was then advanced into the left shoulder under direct visualization with fluoroscopy. Needle was advanced until touching the proximal head of the humerus. Needle was then retracted approximately 1 mm and aspiration noted to be negative for heme. After negative aspiration for heme, 3 mL of a solution containing 1 mL 40 mg per mL, 40 mg total triamcinolone and 2 mL of bupivacaine 0.5% was injected slowly. Needle retracted fdc flushed with 1 mL of 1% lidocaine and then removed. Sterile bandage placed over injection site. There were no new motor deficits present in the left upper extremity following procedure. Our attention was then directed to the right shoulder. Fluoroscopic imaging was obtained of the right shoulder with AP imaging. The area was then prepped and draped in aseptic fashion using chlorhexidine. A 27-gauge 1-1/4-inch needle was then used to anesthetize skin and subcutaneous tissue with 2 mL of lidocaine 1% preservative-free. A 27-gauge 1-1/4 inch needle was then advanced under fluoroscopic guidance towards the right proximal head of the humerus under direct visualization. Needle was advanced until reaching the proximal head of the humerus. Needle was then retracted 1 mm and aspiration noted to be negative for heme. After negative aspiration for heme, 3 mL of solution containing 1 mL 40 mg per mL, 40 mg total triamcinolone along with 2 mL bupivacaine 0.5% was injected slowly. Needle retracted fdc flushed with 1 mL of 1% lidocaine and removed. Sterile bandage placed over injection site. There were no new motor deficits present in the right upper extremity following procedure. The patient tolerated the procedure well, carefully escorted to recovery room in stable condition. No apparent complications. After meeting our discharge criteria, the patient discharged home. DO HOWARD Rollins/CHIVO By: 0934 01 Lucas Chapman DO /nt
[2021-03-13 09:04] VITALS: BP 110/66
--- NOTE | 2021-03-13 09:08 | NUR ---
Pain Clinic Assessment: 1. History of Osteoarthritis: Left Lower Extremity Left Upper Extremity Right Lower Extremity Right Upper Extremity cervical spine, lumbar spine History of Rheumatoid Arthritis: Not Applicable 2. Height: 5 ft. 10 in. 177.8 cm. Weight: 257.0 lb. oz. 116.575 kg. Patient's BMI: 36.9 3. Vital Signs: BP: 110/66 Pulse: 62 Resp: 16 Temp: 02 Sat: 97 ECG Mon: 4. Pain Intensity: 8 5. Fall Risk: Dizziness: N Needs help standing or walking: N Fallen in the last 3 months: N Fall risk comments: 6. Patient on Blood Thinner: None 7. History of Hypertension: Y 8. Opioid Therapy greater than 6 weeks: Y Opiate Contract Signed: 04/14/18 9. Risk Assessment Tool Provided: LOW 0 10. Functional Assessment Tool: 11. Recreational Drug Use: Never Drug Type: Tobacco Use: Current Every Day Smoker Tobacco Type: Cigarettes Amount or Packs/day: 1/2 pack How Many Years: 45 Alcohol Use: No Frequency: Quant:
== END | disposition home or self-care (01) ==
LOC: PAIN 07:26
PROVIDERS: ATTEND Anesthesiology Pain Medicine
DX: M25.511 Pain in right shoulder (principal); M25.512 Pain in left shoulder; M19.012 Primary osteoarthritis, left shoulder; M19.011 Primary osteoarthritis, right shoulder; G89.29 Other chronic pain; I10 Essential (primary) hypertension; M19.90 Unspecified osteoarthritis, unspecified site; F17.210 Nicotine dependence, cigarettes, uncomplicated; Z98.890 Other specified postprocedural states; Z79.899 Other long term (current) drug therapy; Z79.891 Long term (current) use of opiate analgesic; Z88.0 Allergy status to penicillin

== ENCOUNTER → 2021-04-10 | Outpatient (CLI) | payer OTHER ==
[~2021-04-10] VITALS: Ht 177.8 cm; Wt 116.6 kg
[~2021-04-10] MED LIST changes: +DICLOFENAC SOD100 G1 TOP
[2021-04-10 11:01] VITALS: BP 116/67
--- NOTE | 2021-04-10 11:07 | NUR ---
Pain Clinic Assessment: 1. History of Osteoarthritis: Left Lower Extremity Left Upper Extremity Right Lower Extremity Right Upper Extremity cervical spine, lumbar spine History of Rheumatoid Arthritis: Not Applicable 2. Height: 5 ft. 10 in. 177.8 cm. Weight: 257.0 lb. oz. 116.575 kg. Patient's BMI: 36.9 3. Vital Signs: BP: 116/67 Pulse: 65 Resp: 20 Temp: 02 Sat: 100 ECG Mon: 4. Pain Intensity: 2 5. Fall Risk: Dizziness: N Needs help standing or walking: N Fallen in the last 3 months: N Fall risk comments: 6. Patient on Blood Thinner: None 7. History of Hypertension: Y 8. Opioid Therapy greater than 6 weeks: Y Opiate Contract Signed: 04/14/18 9. Risk Assessment Tool Provided: LOW 0 10. Functional Assessment Tool: 11. Recreational Drug Use: Never Drug Type: Tobacco Use: Current Every Day Smoker Tobacco Type: Cigarettes Amount or Packs/day: 1/2 pack How Many Years: 45 Alcohol Use: No Frequency: Quant:
== END ==
LOC: PAIN 07:06
PROVIDERS: ATTEND Clinical Nurse Specialist Adult Health
DX: M54.16 Radiculopathy, lumbar region (principal); M25.511 Pain in right shoulder; M25.512 Pain in left shoulder; G89.4 Chronic pain syndrome; Z79.891 Long term (current) use of opiate analgesic; Z79.899 Other long term (current) drug therapy

== ENCOUNTER → 2021-06-25 | Outpatient (CLI) | payer OTHER ==
[~2021-06-25] VITALS: Ht 177.8 cm; Wt 127.4 kg
[2021-06-25 10:34] VITALS: BP 119/56
--- NOTE | 2021-06-25 10:54 | NUR ---
Pain Clinic Assessment: 1. History of Osteoarthritis: Left Lower Extremity Left Upper Extremity Right Lower Extremity Right Upper Extremity cervical spine, lumbar spine History of Rheumatoid Arthritis: Not Applicable 2. Height: 5 ft. 10 in. 177.8 cm. Weight: 280.8 lb. oz. 127.370 kg. Patient's BMI: 40.3 3. Vital Signs: BP: 119/56 Pulse: 53 Resp: 16 Temp: 02 Sat: 97 ECG Mon: 4. Pain Intensity: 4 5. Fall Risk: Dizziness: N Needs help standing or walking: N Fallen in the last 3 months: N Fall risk comments: 6. Patient on Blood Thinner: None 7. History of Hypertension: Y 8. Opioid Therapy greater than 6 weeks: Y Opiate Contract Signed: 04/14/18 9. Risk Assessment Tool Provided: LOW 0 10. Functional Assessment Tool: 11. Recreational Drug Use: Never Drug Type: Tobacco Use: Current Every Day Smoker Tobacco Type: Cigarettes Amount or Packs/day: 1/2 PACK How Many Years: 45 Alcohol Use: No Frequency: Quant:
--- NOTE | 2021-06-26 08:05 | HPC ---
[facility] [place] [address] PAIN MANAGEMENT CONSULTATION Name: ADELAALEJANDRA Room #: REG [facility]#: [id number] Admission: 06/25/21 Attend Phys: Lucas Chapman DO Discharge: Date of : 56 Report #: [id number] THIS REPORT FOR: cc: Rafat Valente,Lucas Hedrick DO ~ cc: Rafat Valente DO DATE OF SERVICE: 06/25/2021 CHIEF COMPLAINT: Bilateral shoulder pain. HISTORY OF PRESENT ILLNESS: As you know, the patient is a very pleasant 61-year-old male with longstanding history of bilateral shoulder pain for which he undergoes intraarticular injections periodically. The most recent was provided in 03/2021 for which the patient was reporting excellent benefit in symptoms. He reports symptoms of 80% or greater improvement lasting until just recently. Unfortunately, he has had a recurrence of symptoms. This was without inciting injury or trauma. He returns today in followup visit for bilateral intraarticular shoulder injections under fluoroscopic guidance to address recurrent 4/10 pain. ALLERGIES: PENICILLIN. CURRENT MEDICATIONS: See chart. SOCIAL HISTORY: The patient reports he smokes half pack tobacco per day, has done so for greater than 45 years. Denies IV or illicit drug use. Denies any chronic alcohol use. He is unaccompanied at today's visit. IMAGING: No new imaging available. PQRS: The patient has known arthritic changes of the cervical spine, bilateral shoulders, lumbar spine, bilateral hips and knees. No rheumatoid arthritis. Pain intensity today is rated at 4/10. He is not a fall risk, has not had a fall in last 3 months. He is not on blood thinners, but is treated for hypertension. He is on chronic opioids, has a low opiate addiction potential based on assessment tool. Pain impact is 52/70, severe interference of daily activities secondary to pain. PHYSICAL EXAMINATION: VITAL SIGNS: Blood pressure 118/56, pulse is 53, respiratory rate 16 and unlabored. The patient 97% on room air. Height 5 feet 10 inches tall, weight 280.8 pounds, BMI calculated 40.3. GENERAL: Well-developed, well-nourished, well-hydrated class III, morbidly obese 61-year-old male, appearing stated age, pain is rated today 4/10. HEENT: Normocephalic, atraumatic. Pupils are round and responsive. He is [facility] [address] [place] [address] PAIN MANAGEMENT CONSULTATION Name: ALEJANDRA CHAPMAN Room #: REG CLI [facility]#: [id number] Admission: 06/25/21 Attend Phys: Lucas Chapman DO Discharge: Date of : 56 Report #: [id number] wearing a mask in compliance with COVID-19 regulations in the hospital policies. EXTREMITIES: Show no clubbing, no cyanosis, no edema. MUSCULOSKELETAL: The patient once again has palpatory tenderness of both anterior and posterior of the shoulders bilaterally, left greater than right. Active and passive range of motion of bilateral shoulders met with increasing pain. There is no definitive crepitus with movement though pain is generated. Upper extremity strength appears symmetrical, 5/5. ASSESSMENT: 1. Bilateral shoulder pain. 2. Osteoarthritis, bilateral shoulders. 3. Chronic intractable pain. PLAN: 1. The patient returns today in followup visit to undergo bilateral intraarticular shoulder injections under fluoroscopic guidance. He reports good efficacy with previous injection reporting well-maintained pain levels until just recently where his symptoms have reoccurred. No inciting injury or trauma. He returns today in followup visit to undergo bilateral intraarticular shoulder injections under fluoroscopic guidance. 2. No medication changes made at today's visit. The patient will continue current medical therapy as prior prescribed. 3. The patient was provided a return visit for medication management at the previously approved time. We will see him back from the medications at that visit. We will discuss efficacy of the injections at that appointment as well. PROCEDURE NOTE DESCRIPTION OF PROCEDURE: Bilateral intraarticular shoulder injections under fluoroscopic guidance. After obtaining written consent, the patient was taken back to fluoroscopy suite, placed in the supine position. The image intensifier (C-arm) was then brought into position over the left shoulder and AP imaging was obtained. The area of the left shoulder was then prepped and draped in aseptic fashion using chlorhexidine. A 27-gauge 1-1/4-inch needle was then used to anesthetize skin and subcutaneous tissue with 2 mL of preservative-free 1% lidocaine. A 25-gauge 2-inch needle was then advanced into the left shoulder under direct visualization with fluoroscopy. Needle was advanced until touching the proximal head of the humerus. Needle was then retracted approximately 1 mm and aspiration noted to be negative for heme. After negative aspiration for heme, 0.5 mL of Omnipaque injected. Excellent left shoulder arthrogram was obtained. After negative aspiration for heme, 3 mL of solution containing 1 mL 40 mg per mL, 40 mg total triamcinolone along with 2 mL bupivacaine 0.5% injected slowly. Needle retracted jail flushed with 1 mL of 1% lidocaine, then removed. [address] [address] PAIN MANAGEMENT CONSULTATION Name: ALEJANDRA CHAPMAN Room #: REG CLI [facility]#: [id number] Admission: 06/25/21 Attend Phys: Lucas Chapman DO Discharge: Date of : 56 Report #: [id number] Sterile bandage placed over injection site. There were no new motor deficits present in the left upper extremity following procedure. Our attention was then directed to the right side. Fluoroscopic imaging was obtained of the right shoulder with AP imaging. The area was then prepped and draped in aseptic fashion using chlorhexidine. A 27-gauge 1-1/4 inch needle was then used to anesthetize skin and subcutaneous tissue with 2 mL of 1% preservative-free lidocaine. A 25-gauge 2-inch needle was then advanced under fluoroscopic guidance towards the right proximal head of the humerus. This was done under direct visualization with fluoroscopy. Needle was advanced until reaching the proximal head of the humerus then retracted approximately 1 mm. After negative aspiration for heme, 0.5 mL of Omnipaque injected demonstrating an excellent right shoulder arthrogram. After negative aspiration for heme or cerebrospinal fluid, 3 mL of a solution containing 1 mL 40 mg per mL, 40 mg total triamcinolone along with 2 mL of bupivacaine 0.5% injected slowly. Needle retracted jail flushed with 1 mL of 1% lidocaine and then removed. Sterile bandage placed over injection site. No new motor deficits present in the upper extremity following procedure. The patient tolerated the procedure well, carefully escorted to recovery room in stable condition. No apparent complications. After meeting discharge criteria, the patient discharged home. <ELECTRONICALLY SIGNED> By: Lucas Chapman DO 06/26/21 0805 [id number] Lucas Chapman DO /nt
== END | disposition home or self-care (01) ==
LOC: PAIN 07:00
PROVIDERS: ATTEND Anesthesiology Pain Medicine
DX: M25.511 Pain in right shoulder (principal); M25.512 Pain in left shoulder; M19.011 Primary osteoarthritis, right shoulder; M19.012 Primary osteoarthritis, left shoulder; G89.29 Other chronic pain; I10 Essential (primary) hypertension; M19.90 Unspecified osteoarthritis, unspecified site; F17.210 Nicotine dependence, cigarettes, uncomplicated; Z98.890 Other specified postprocedural states; Z79.899 Other long term (current) drug therapy; Z88.0 Allergy status to penicillin

== ENCOUNTER → 2021-07-09 | Outpatient (CLI) | payer OTHER ==
[~2021-07-09] VITALS: Ht 177.8 cm; Wt 121.2 kg
[~2021-07-09] MED LIST changes: +ARTHRITIS PAIN100 GM TOP
[2021-07-09 10:05] VITALS: BP 124/66
--- NOTE | 2021-07-10 08:35 | HPC ---
[facility] [place] [address] PAIN MANAGEMENT CONSULTATION Name: ADELAALEJANDRA Justin Room #: REG [facility].#: [id number] Admission: 07/09/21 Attend Phys: Maria Elena Alexis Discharge: Date of : 56 Report #: [id number] THIS REPORT FOR: cc: Rafat Valente Russell J. DO Hocker,Maria Elena MENSAH ~ cc: Rafat Valente DO, James E. Johnson, DO DATE OF SERVICE: 07/09/2021 CHIEF COMPLAINT: Bilateral shoulder pain and low back pain. HISTORY OF PRESENT ILLNESS: This is a very pleasant 61-year-old gentleman who returned to the pain clinic today for renewal of his opioid medications. He reports the bilateral shoulder injection that Dr. Lucas Chapman performed in June afforded him 100% relief and he continues to have improvement in his shoulders. Today, he is rating a pain score of 4/10, mostly located in his low back, describing as an aching tenderness sensation that is worse with lifting and too much activity. He believes the medication as well as a spinal cord stimulator device and his periodic shoulder injections are beneficial in helping reduce his overall pain. He denies minimal side effects of constipation or daytime somnolence. Today, he would like a renewal of his Voltaren gel, which he does find effective on his shoulders. He reports the meloxicam that we had trialled him on upset his stomach and is not taking that medication. The patient reports today feeling depressed. His 's is coming on the first year anniversary. He is reporting having difficulty sleeping since he is thinking about her and this difficult time of year that he is having. ALLERGIES: PENICILLIN. CURRENT LIST OF MEDICATIONS: Diclofenac gel, oxycodone 10/325 p.r.n., metoprolol, Zyrtec, fenofibrate, Maxzide, Crestor, irbesartan, aspirin and amlodipine. PQRS: 1. He has osteoarthritic issues in his upper and lower extremity as well as his spine. Denies any rheumatoid arthritis. Height is 5 feet 10 inches, weight is 267. BMI is 38. 2. Vital signs: Blood pressure 124/66, pulse is 58, respirations 16, oxygen sat is 96%. 3. Pain score is 4/10. 4. Denies dizziness, does not need help walking or standing, has not fallen in the last 3 months. The patient is not on blood thinners, but does take medicine for hypertension. His opioid therapy is greater than 6 weeks; therefore, an opioid signed contract is on the chart. 5. Risk assessment is low. Functional assessment is 52/70. [place] [address] PAIN MANAGEMENT CONSULTATION Name: ALEJANDRA CHAPMAN Room #: REG [facility]#: [id number] Admission: 07/09/21 Attend Phys: Maria Elena Alexis Discharge: Date of : 56 Report #: [id number] 6. Recreational drug use, he denies. He is a current smoker of cigarettes and does not drink alcohol. According to the prescription monitoring system, he is due to fill early next week for his oxycodone. His morphine mEq according to the CDC guidelines is 75 MME. There is a drug screen on the chart that is appropriate as well. PHYSICAL EXAMINATION: GENERAL: This is a well-developed, well-nourished, well-hydrated class III morbidly obese 61-year-old gentleman who appears his stated age, rating his current pain score at 4/10 today. HEENT: Normocephalic, atraumatic. Extraocular eye muscles are intact. He is wearing a mask for COVID precautions. EXTREMITIES: No clubbing, no cyanosis, no edema. MUSCULOSKELETAL: Palpatory tenderness over his shoulders bilaterally that have diminished since his previous injection. Active and passive range of motion do increase his pain. He has tenderness in the lumbar sacral region of his spine as well. Upper and lower extremity strengths are symmetrical at 5/5. IMPRESSION: 1. Bilateral shoulder pain. 2. Osteoarthritis affecting bilateral shoulders. 3. Chronic intractable pain. 4. Low back pain with lumbar radiculopathy. 5. Medication management utilizing scheduled opioid medications. We reviewed the fact that opiate medications are being used to provide analgesia adequate to support activities of daily living, not attempting to achieve a specific pain score on the 0-10 Visual Analog Scale. The current opiate medications are providing sufficient analgesia to allow the patient to participate in activities of daily living. The patient is not exhibiting any aberrant behavior suggestive of drug diversion. The patient is not having any adverse reactions to medications. The patient is not suffering from daytime somnolence or mental acuity changes. The patient is managing opiate-induced constipation with appropriate [id number]-pfhmtdc agents and dietary considerations. The patient was counseled on concern for caution with operating a motor vehicle while using opiate medications. PLAN: 1. We discussed treatment options with the patient today. The patient feels the injections that Dr. Lucas Chapman performed helped at least 90% in his shoulders. He feels that he has significant decrease in pain since those injections. He utilizes this pain technique every 4 months on average to help alleviate his shoulder discomfort. 2. The patient does utilize the Voltaren gel on his shoulders and feels that is beneficial. He would like a renewal of that medication. Scripts will be sent [facility] [address] [place] [address] PAIN MANAGEMENT CONSULTATION Name: ALEJANDRA CHAPMAN Justin Room #: REG [facility]#: [id number] Admission: 07/09/21 Attend Phys: Maria Elena RODRICK Alexis Discharge: Date of : 56 Report #: [id number] electronically for 4 grams q.i.d. #3 tubes with 2 additional refills. I encouraged the patient to utilize that less when his injections are beneficial and then utilize it again when his pain increases. 3. We will continue him on his oxycodone 10/325. The patient takes these as needed. He is followed closely. His morphine mEq is 75 MME. We will have Dr. Lucas Chapman send 3 months of this medication to his pharmacy. 4. We did discuss his 's passing one year ago on the 18 of July. He is depressed discussing this. I encouraged the patient to visit with his family during this time and also encouraged him to see them for the holidays as he is trying to decide what to do since those were hard times for him as well. Time spent in consultation, reviewing recent studies and clinical notes, physical report and physical examination and correlation of findings to determine medical documentation and treatment options 11 minutes. Time spent in preparation for appointment, reviewing prescription monitoring reports, previous records and proposed treatment options and reviewing current medications 5 minutes. Time spent preparing and sending electronic prescriptions with collaborating physician, Dr. Lucas Chapman and documentation of visit and plan of treatment 5 minutes. Total time spent 21 minutes. <ELECTRONICALLY SIGNED> By: Maria Elena Alexis 07/10/21 0835 [id number] Maria Elena Alexis /nt
== END ==
LOC: PAIN 07:02
PROVIDERS: ATTEND Clinical Nurse Specialist Adult Health
DX: M19.011 Primary osteoarthritis, right shoulder (principal); M19.012 Primary osteoarthritis, left shoulder; G89.29 Other chronic pain; M47.26 Other spondylosis with radiculopathy, lumbar region

== ENCOUNTER → 2021-09-04 | Outpatient (CLI) | payer OTHER ==
[~2021-09-04] VITALS: Ht 177.8 cm; Wt 121.7 kg
[2021-09-04 10:55] VITALS: BP 123/67
--- NOTE | 2021-09-04 11:10 | NUR ---
Pain Clinic Assessment: 1. History of Osteoarthritis: Left Lower Extremity Left Upper Extremity Right Lower Extremity Right Upper Extremity cervical spine, lumbar spine History of Rheumatoid Arthritis: Not Applicable 2. Height: 5 ft. 10 in. 177.8 cm. Weight: 268.4 lb. oz. 121.746 kg. Patient's BMI: 38.5 3. Vital Signs: BP: 123/67 Pulse: 60 Resp: 20 Temp: 02 Sat: 100 ECG Mon: 4. Pain Intensity: 8 TO 9; 3 WITH MED 5. Fall Risk: Dizziness: N Needs help standing or walking: N Fallen in the last 3 months: N Fall risk comments: 6. Patient on Blood Thinner: None 7. History of Hypertension: Y 8. Opioid Therapy greater than 6 weeks: Y Opiate Contract Signed: 04/14/18 9. Risk Assessment Tool Provided: LOW 0 10. Functional Assessment Tool: / 11. Recreational Drug Use: Never Drug Type: Tobacco Use: Current Every Day Smoker Tobacco Type: Cigarettes Amount or Packs/day: 6 CIGS/DAY How Many Years: Alcohol Use: No Frequency: Quant:
--- NOTE | 2021-09-10 13:46 | HPC ---
[facility] [address] [place] [address] PAIN MANAGEMENT CONSULTATION Name: ADELAALEJANDRA Room #: REG [facility]#: [id number] Admission: 09/04/21 Attend Phys: Lucas Chapman DO Discharge: Date of : 56 Report #: [id number] THIS REPORT FOR: cc: Rafat Valente,Lucas Hedrick DO ~ cc: Rafat Valente DO DATE OF SERVICE: 09/04/2021 REFERRING PHYSICIAN: Dr. Rafat Valente. CHIEF COMPLAINT: Bilateral shoulder pain. HISTORY OF PRESENT ILLNESS: As you know, the patient is a very pleasant 61-year-old male with longstanding history of bilateral shoulder pain due to osteoarthritis and rotator cuff injury. He has undergone surgical treatment with minimal benefit. He continues to undergo intra-articular shoulder injections with improvement in symptoms of greater than 80%. Most recent injection according to the patient gave greater than 90%, lasting for nearly 2 months, unfortunately changes in weather and activities exacerbated his bilateral shoulder pain. He returns today to undergo next in the series. He denies injury, trauma or any changes in medication management that would preclude him from undergoing bilateral intra-articular shoulder injections today. ALLERGIES: PENICILLIN. CURRENT MEDICATIONS: See chart. SOCIAL HISTORY: The patient smokes half pack tobacco per day, has done so for almost 46 years. Denies IV or illicit drug use. Denies any chronic alcohol use. He is unaccompanied today. IMAGING: No new imaging available. PQRS: The patient has known arthritic changes of the cervical spine, bilateral shoulders, lumbar spine, bilateral hips and knees as well as bilateral hands. No rheumatoid arthritis. Pain intensity rated anywhere from 8-9/10. He is not a fall risk, has not had a fall in last 3 months. He is not on blood thinners, but is treated for hypertension. He is on chronic opioids, has a low opioid addiction potential based on assessment tool. Pain impact is 52/70, severe interference of daily activities secondary to pain. PHYSICAL EXAMINATION: VITAL SIGNS: Blood pressure 123/67, pulse 60, respiratory rate 20, unlabored. The patient 100% on room air. Height 5 feet 10 inches tall, weight 268.[address] [address] PAIN MANAGEMENT CONSULTATION Name: ALEJANDRA CHAPMAN Room #: REG [facility]#: [id number] Admission: 09/04/21 Attend Phys: Lucas Chapman DO Discharge: Date of : 56 Report #: [id number] pounds, BMI calculated 38.5. GENERAL: Well-developed, well-nourished, well-hydrated exogenously obese 61-year-old male, appearing stated age, pain is rated anywhere from 8-9/10. HEENT: Normocephalic, atraumatic. Pupils equal, round and responsive. He is wearing a mask in compliance with COVID-19 regulations. EXTREMITIES: Show no clubbing, no cyanosis. No appreciable edema. MUSCULOSKELETAL: Active and passive range of motion of bilateral shoulders met with increasing pain. 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 Passive and active range of motion of the shoulders has no definitive crepitus with movement. There does not appear to be any definitive deformities of the shoulders based on physical exam. ASSESSMENT: 1. Bilateral shoulder pain. 2. Osteoarthritis of bilateral shoulders. 3. Rotator cuff injuries of the bilateral shoulders. 4. Chronic intractable pain. PLAN: 1. The patient returns today in followup visit requesting intra-articular shoulder injections under fluoroscopic guidance. Most recent gave 2 months' worth of improvement in symptoms of greater than 90%. Unfortunately, his symptoms have reoccurred. He returns to undergo the next in the series. He has been advised risks and benefits of the procedure, states understood and wished to proceed. 2. No medication changes made at today's visit. He will continue to take his oxycodone as prescribed. He does not need refills of the medication at that time. We reviewed the patient's PDMP. There are no concerning entries in the reports. 3. We will see the patient back in followup visit on an as needed basis next in the series of intra-articular shoulder injections. We will plan to see him back for medication management at our previously agreed appointment date. PROCEDURE NOTE DESCRIPTION OF PROCEDURE: Bilateral intra-articular shoulder injections under fluoroscopic guidance. After obtaining written consent, the patient was taken back to fluoroscopy suite, placed in a supine position. The image intensifier (C-arm) was then brought into position over the left shoulder and AP imaging was obtained. The area of the left shoulder was then prepped and draped in aseptic fashion using chlorhexidine. A 27-gauge 1-1/4-inch needle was then used to anesthetize skin and subcutaneous tissue with 2 mL of preservative-free 1% lidocaine. A 25-gauge 2-inch needle was then advanced into the left shoulder under direct [address] [address] PAIN MANAGEMENT CONSULTATION Name: ALEJANDRA CHAPMAN [id number] Admission: 09/04/21 Attend Phys: Lucas Chapman DO Discharge: Date of : 56 Report #: [id number] visualization with the fluoroscopic guidance. Needle was advanced until touching the proximal head of the humerus. Needle was then retracted approximately 1 mm and aspiration noted to be negative for heme. After negative aspiration for heme, 3 mL of a solution containing 1 mL 40 mg per mL, 40 mg total triamcinolone along with 2 mL bupivacaine 0.5% injected slowly. Needle retracted snf flushed with 1 mL of 1% lidocaine and removed. Sterile bandage placed over injection site. Attention was then directed to the right side. Fluoroscopic imaging was obtained of the right shoulder with AP imaging. The area of the right shoulder was then prepped and draped in aseptic fashion using chlorhexidine. A 27-gauge 1-1/4-inch needle was then used to anesthetize skin and subcutaneous tissue with 2 mL of 1% preservative-free lidocaine. A 25-gauge 2-inch needle was then advanced under fluoroscopic guidance towards the right proximal head of the humerus. Needle was advanced until reaching the proximal head then retracted approximately 1 mm. After negative aspiration for heme, 3 mL of a solution containing 1 mL 40 mg per mL, 40 mg total triamcinolone along with 2 mL of bupivacaine 0.5% injected slowly. Needle retracted snf flushed with 1 mL of 1% lidocaine and removed. Sterile bandage placed over injection site. There were no new motor deficits present in the upper extremities following procedure. The patient tolerated the procedure well, carefully escorted to recovery room in stable condition. No apparent complications. After meeting discharge criteria, the patient discharged home. <ELECTRONICALLY SIGNED> By: Lucas Chapman DO 09/10/21 1346 [id number] [id number] Lucas Chapman DO /nt
== END | disposition home or self-care (01) ==
LOC: PAIN 07:51
PROVIDERS: ATTEND Anesthesiology Pain Medicine
DX: M25.511 Pain in right shoulder (principal); M25.512 Pain in left shoulder; M19.011 Primary osteoarthritis, right shoulder; M19.012 Primary osteoarthritis, left shoulder; G89.29 Other chronic pain; I10 Essential (primary) hypertension; M19.90 Unspecified osteoarthritis, unspecified site; F17.210 Nicotine dependence, cigarettes, uncomplicated; Z98.890 Other specified postprocedural states; Z79.899 Other long term (current) drug therapy; Z88.0 Allergy status to penicillin

== ENCOUNTER → 2021-09-17 | Outpatient (CLI) | payer OTHER ==
[~2021-09-17] VITALS: Ht 177.8 cm; Wt 119.8 kg
[2021-09-17 10:07] VITALS: BP 141/76
--- NOTE | 2021-09-17 10:11 | NUR ---
Pain Clinic Assessment: 1. History of Osteoarthritis: Left Lower Extremity Left Upper Extremity Right Lower Extremity Right Upper Extremity cervical spine, lumbar spine History of Rheumatoid Arthritis: Not Applicable 2. Height: 5 ft. 10 in. 177.8 cm. Weight: 264.0 lb. oz. 119.750 kg. Patient's BMI: 37.9 3. Vital Signs: BP: 141/76 Pulse: 55 Resp: 18 Temp: 02 Sat: 94 ECG Mon: 4. Pain Intensity: 7 5. Fall Risk: Dizziness: N Needs help standing or walking: N Fallen in the last 3 months: N Fall risk comments: 6. Patient on Blood Thinner: None 7. History of Hypertension: Y 8. Opioid Therapy greater than 6 weeks: Y Opiate Contract Signed: 04/14/18 9. Risk Assessment Tool Provided: LOW 0 10. Functional Assessment Tool: 11. Recreational Drug Use: Never Drug Type: Tobacco Use: Current Every Day Smoker Tobacco Type: Cigarettes Amount or Packs/day: 6/DAY How Many Years: Alcohol Use: No Frequency: Quant:
== END ==
LOC: PAIN 09:09
PROVIDERS: ATTEND Clinical Nurse Specialist Adult Health
DX: M19.011 Primary osteoarthritis, right shoulder (principal); M19.012 Primary osteoarthritis, left shoulder; M54.16 Radiculopathy, lumbar region; M54.50 Low back pain, unspecified; F17.200 Nicotine dependence, unspecified, uncomplicated; Z79.899 Other long term (current) drug therapy